=== PATIENT | male | born 1965 | race Caucasian/White ===

== ENCOUNTER 2019-03-07 08:49 | Outpatient (CLI) | payer OTHER, SELFPAY ==
[2019-03-07] VITALS (9 sets, daily range): BP systolic 129–150; BP diastolic 80–94; PULSE 67–77; RESP 16–18; TEMP 36.9; O2SAT 95–97
--- NOTE | 2019-03-07 08:50 | DI.RAD.S_ITS ---
PROCEDURE: PAIN C/T INTERLAMINAR INJECT INDICATIONS: SPONDYLOSIS FINDINGS: Fluoroscopic spot filming was performed to verify placement of spinal needles at the C6-C7 level(s), as labeled on the films. Appropriate location(s) of the needle tip(s) was confirmed by injection of iodinated contrast. Dictated by: Jarrod Cárdenas M.D. on 03/07/2019 at 10:44 Approved by: Jarrod Cárdenas M.D. on 03/07/2019 at 10:45
[2019-03-07] MEDS: MIDAZOLAM 5 MG/5 ML VIAL IV (10:05)
[2019-03-07] MEDS: fentaNYL 100 MCG/2 ML INJ 50 MCG IV (10:06)
[2019-03-07] MEDS: IOPAMIDOL 15 ML VIAL 3 ML INJ (10:13)
[2019-03-07] MEDS: DEXAMETHASONE 10 MG/ML VIAL 20 MG INJ (10:13)
[2019-03-07] MEDS: LIDOCAINE 1% 20 ML INJ 5 ML INJ (10:13)
--- NOTE | 2019-03-07 10:24 | P.PCN_ITS ---
Procedures Date/Time Date of procedure: 03/07/19 Time of procedure: 10:23 General Procedure description: PREOP DIAGNOSIS 1. CERVICAL STENOSIS, 2. CERVICAL HNP WITH UPPER EXTREMITY RADICULAR FEATURES, POST OP DIAGNOSIS 1. CERVICAL STENOSIS, 2. CERVICAL HNP WITH UPPER EXTREMITY RADICULAR FEATURES, PROCEDURES 1. FLUORSCOPICALLY GUIDED CONTRAST CONTROLLED INTERLAMINAR EPIDURAL STEROID INJECTION - C6/7 TL HANNA PHYSICIAN: DO SUZETTE Marmolejo Henry is referred by Dr. Handley for treatment of Cervical HNP with Upper Extremity Paresthesias. FINDINGS Cervical Stenosis due to disc deterioration and nerve root irritation and nerve root irritation DESCRIPTION OF PROCEDURE Fluoroscopically guided, contrast-controlled C6/7 translaminar epidural steroid injection with conscious sedation. Following denial of allergy and review of potential side effects and complications, including, but not necessarily limited to, infection, allergic reaction, local tissue breakdown, temporary as well as permanent nerve injury, stroke, paralysis, and possible , the patient indicated that patient understood and agreed to proceed. An informed consent document was signed by the patient, witnessed by a nurse, and placed in the patient's chart. Additionally, other treatment options including modalities, medications, and physical therapy were reviewed with the patient. After review of previous anaesthesic history and IV conscious sedation the patient was deemed safe to proceed with todays procedure with IV conscious sedation as ASA class II designation. Safety time-out was performed to confirm patient ID, procedure to be performed and site of procedure. IV sedation was accomplished with a combination of 3mg of Versed and 50mcg of Fentanyl administered by the RN after DO order, titrated to patient comfort during the course of the procedure while the patient remained responsive to all verbal commands. In the prone position, following sterile prep and drape of the cervical region, the C6/7 translaminar space was identified fluoroscopically. The skin was anesthetized via a 25-gauge 1.5-inch needle with 1% lidocaine solution. At this point, a 25-gauge, 2.5-inch short bevel spinal needle was atraumatically in troduced and advanced under fluoroscopic guidance into epidural space at the C6/7 translaminar space. Depth was confirmed on lateral view. Radiological data, including multiple fluoroscopic views of the cervical spine, reveal a spinal needle at the C6/7 translaminar space. Lateral views then show placement of the needle in the epidural space. Subsequent views show contrast material flowing superiorly and inferiorly in the epidural space. DSA fluoroscopy with live contrast injection, once again, confirmed no vascular or intrathecal uptake. At this point, using loss of resistance technique with saline and air, the epidural space was entered. Following negative aspiration, injection of approximately 1.5 cc of Isovue-200 with live fluoroscopy in the AP view confirmed epidural flow in the epidural space without vascular or intrathecal uptake observed. Subsequently, a test dose of 1 cc of 1% lidocaine solution was injected and patient was observed for two minutes without signs or symptoms of complications, including abdominal pain, shortness of breath, bilateral upper or lower extremity weakness, nausea and vomiting, prior to steroid injection. At this point, 2cc or 20mg of dexamethasone was then injected without incident. The patient tolerated the procedure well without signs or symptoms of complications prior to being transferred to the recovery area for further monit oring, The patient was then transferred to the recovery area where they were observed for an appropriate period of time after the injection. The patient reported a VAS score of 6 prior to the procedure and a post-procedure VAS of 0. Total Fluoroscopy Time: 37.0 seconds Total Conscious Time: 24min POST OP INSTRUCTIONS The patient was provided a Pain Log to continue to record their response to the target-specific procedure prior to follow-up visit with the referring provider. Additionally, specific post-injection care instructions and a contact number to our office were provided if concerns arise regarding possible complications associated with the procedure are suspected. Stephan Barragan DO Complications: none
[2019-03-07] MEDS: HYDROCODONE/ACET 5/325 TABLET 2 TAB PO (10:43)
--- NOTE | 2019-03-07 10:50 | PC.NURSE ---
pt returned from procedure via wheelchair, awake and alert, able to transfer self with standby assist. Resumed monitoring from Kika SCHILLING.
== END 2019-03-07 11:10 ==
PROVIDERS: PCP Family Medicine; Visit Provider Physical Medicine & Rehabilitation
DX: M48.02 Spinal stenosis, cervical region (principal); M50.123 Cervical disc disorder at C6-C7 level with radiculopathy
CPT/HCPCS: 62321; 99152; J1100; J2250; J3010

== ENCOUNTER → 2019-04-26 08:56 | Outpatient (CLI) | payer OTHER, SELFPAY ==
--- NOTE | 2019-04-26 08:58 | DI.RAD.S_ITS ---
PROCEDURE: XR CERVICAL SPINE 4V OR 5V INDICATIONS: Neck pain TECHNIQUE: 5 views of the cervical spine acquired. COMPARISON: None. FINDINGS: Bones: No fractures or dislocations to the T1 level. Oblique images demonstrate no bony foraminal stenoses. Degenerative disc disease is present moderate in severity at C5-6 and moderately severe at C6-7. Soft tissues: No prevertebral soft tissue swelling. IMPRESSION: Low lumbosacral spine degenerative changes as discussed without subluxation. There is mild foraminal and spinal stenosis symmetric bilaterally and depending on clinical status followup by MR scanning for nerve root impingement or disc old sp/herniation may be warranted. Dictated by: Timmy Vasquez M.D. on 04/26/2019 at 11:03 Approved by: Timmy Vasquez M.D. on 04/26/2019 at 11:04
== END ==
PROVIDERS: PCP Family Medicine; Visit Provider Physical Medicine & Rehabilitation
DX: M54.2 Cervicalgia (principal); M47.22 Other spondylosis with radiculopathy, cervical region
CPT/HCPCS: 72050

== ENCOUNTER → 2019-07-28 06:58 | Outpatient (CLI) | payer OTHER, SELFPAY ==
[2019-07-28 08:19] LABS: Blood Urea Nitrogen 26 mg/dL (9-20); Calcium 9.6 mg/dL (8.4-10.2); Carbon Dioxide 30 mmol/L (22-32); Chloride 102 mmol/L (98-107); Estimated Glomerular Filt Rate > 60.0 mL/min (>60); Glucose 119 mg/dL (70-100); HEMOLYSIS < 15 (0-50); Potassium 4.9 mmol/L (3.4-5.1); Sodium 140 mmol/L (137-145)
== END ==
PROVIDERS: Family Provider Family Medicine; PCP Family Medicine; Visit Provider Nurse Practitioner Family
DX: I48.0 Paroxysmal atrial fibrillation (principal); I10 Essential (primary) hypertension
CPT/HCPCS: 36415; 80048

== ENCOUNTER → 2019-08-01 07:58 | Outpatient (CLI) | payer OTHER, SELFPAY ==
[2019-08-01 08:48] LABS: Add Manual Diff / Slide Review NO; Basophils Absolute Auto 0 /uL (0-100); Basophils Percent Auto 0.7 % (0-2); Eosinophils Absolute Auto 100 /uL (0-450); Eosinophils Percent Auto 1.7 % (2-4); Hematocrit 41.6 % (41-53); Hemoglobin 13.9 g/dL (13.5-17.5); Lymphocytes Absolute Auto 2200 /uL (1100-4500); Lymphocytes Percent Auto 33.5 % (25-40); Mean Corpuscular HGB Conc 33.5 % (30-36); Mean Corpuscular Hemoglobin 28.9 PG (26-34); Mean Corpuscular Volume 86.3 fL (80-100); Monocytes Absolute Auto 500 /uL (0-900); Monocytes Percent Auto 6.9 % (3-14); Neutrophils Absolute Auto 3700 /uL (1500-7000); Neutrophils Percent Auto 57.2 % (50-75); Platelet Count 288 X10^3/uL (150-400); Red Blood Cell Count 4.82 X10^6/uL (4.5-5.9); White Blood Cell Count 6.5 X10^3/uL (4.5-11.0)
[2019-08-01 09:16] LABS: Cholesterol 184 mg/dL (140-199); HDL Cholesterol 43 mg/dL (40-60); LDL Cholesterol Calculated 91 mg/dL (<100); Triglycerides 248 mg/dL (35-150)
[2019-08-01 09:51] LABS: Thyroid Stimulating Hormone 1.55 uIU/mL (0.47-4.68)
== END ==
PROVIDERS: PCP Family Medicine; Visit Provider Family Medicine
DX: F32.9 Major depressive disorder, single episode, unspecified (principal); G47.30 Sleep apnea, unspecified; I35.9 Nonrheumatic aortic valve disorder, unspecified; I48.91 Unspecified atrial fibrillation; R41.3 Other amnesia; R60.9 Edema, unspecified
CPT/HCPCS: 36415; 80061; 84443; 85025

== ENCOUNTER 2019-10-24 07:00 | Outpatient (CLI) | payer OTHER, SELFPAY ==
[2019-10-24] VITALS (10 sets, daily range): BP systolic 115–151; BP diastolic 55–97; PULSE 68–77; RESP 16–18; TEMP 37.1; O2SAT 94–97
--- NOTE | 2019-10-24 07:03 | DI.RAD.S_ITS ---
PROCEDURE: PAIN C/T INTERLAMINAR INJECT INDICATIONS: SPINAL STENOSIS FINDINGS: Fluoroscopic spot filming was performed to verify placement of spinal needles at the C6-C7 level(s), as labeled on the films. Appropriate location(s) of the needle tip(s) was confirmed by injection of iodinated contrast. IMPRESSION: Fluoroscopy for pain management. Dictated by: Jerad Corrigan M.D. on 10/24/2019 at 9:35 Approved by: Jerad Corrigan M.D. on 10/24/2019 at 9:36
[2019-10-24] MEDS: MIDAZOLAM 5 MG/5 ML VIAL IV (08:13)
[2019-10-24] MEDS: fentaNYL 100 MCG/2 ML INJ 50 MCG IV (08:13)
[2019-10-24] MEDS: LIDOCAINE 1% 20 ML 5 ML INJ (08:20)
[2019-10-24] MEDS: DEXAMETHASONE 10 MG/ML VIAL 30 MG INJ (08:20)
[2019-10-24] MEDS: IOPAMIDOL 15 ML VIAL 3 ML INJ (08:20)
--- NOTE | 2019-10-24 08:25 | PC.NURSE ---
ASSISTING PT OFF TABLE AND TRANSPORTING TO POST PROC AREA IN STABLE CONDITION. PASSING RN CARE OF PT OFF TO MATTHEW Garcia RN.
--- NOTE | 2019-10-24 08:30 | PM.PROC.1 ---
Procedures Date/Time Date of procedure: 10/24/19 Time of procedure: 08:30 General Procedure description: PREOP DIAGNOSIS 1. CERVICAL STENOSIS, 2. CERVICAL HNP WITH UPPER EXTREMITY RADICULAR FEATURES, POST OP DIAGNOSIS 1. CERVICAL STENOSIS, 2. CERVICAL HNP WITH UPPER EXTREMITY RADICULAR FEATURES, PROCEDURES 1. FLUORSCOPICALLY GUIDED CONTRAST CONTROLLED INTERLAMINAR EPIDURAL STEROID INJECTION - C6/7 TL HANNA PHYSICIAN: Stephan Barragan, DO INDICATIONS Henry is referred for treatment of Cervical HNP with R>L Upper Extremity Paresthesias. FINDINGS Cervical Stenosis due to disc deterioration and nerve root irritation and nerve root irritation DESCRIPTION OF PROCEDURE Fluoroscopically guided, contrast-controlled C6/7 translaminar epidural steroid injection with conscious sedation. Following review of allergy and review of potential side effects and complications, including, but not necessarily limited to, infection, allergic reaction, local tissue breakdown, temporary as well as permanent nerve injury, stroke, paralysis, and possible , the patient indicated that patient understood and agreed to proceed. An informed consent document was signed by the patient, witnessed by a nurse, and placed in the patient's chart. Additionally, other treatment options including modalities, medications, and physical therapy were reviewed with the patient. After review of previous anaesthesic history and IV conscious sedation the patient was deemed safe to proceed with todays procedure with IV conscious sedation as ASA class II designation. Safety time-out was performed to confirm patient ID, procedure to be performed and site of procedure. IV sedation was accomplished with a combination of 5mg of Versed and 50mcg of Fentanyl administered by the RN after DO order, titrated to patient comfort during the course of the procedure while the patient remained responsive to all verbal commands. In the prone position, following sterile prep and drape of the cervical region, the C6/7 translaminar space was identified fluoroscopically. The skin was anesthetized via a 25-gauge 1.5-inch needle with 1% lidocaine solution. At this point, a 25-gauge, 2.5-inch short bevel spinal needle was atraumatically introduced and advanced under fluoroscopic guidance into epidural space at the C6/7 translaminar space. Depth was confirmed on lateral view. Radiological data, including multiple fluoroscopic views of the cervical spine, reveal a spinal needle at the C6/7 translaminar space. Lateral views then show placement of the needle in the epidural space. Subsequent views show contrast material flowing superiorly and inferiorly in the epidural space. DSA fluoroscopy with live contrast injection, once again, confirmed no vascular or intrathecal uptake. At this point, using loss of resistance technique with saline and air, the epidural space was entered. Following negative aspiration, injection of approximately 1.5 cc of Isovue-200 with live fluoroscopy in the AP view confirmed epidural flow in the epidural space without vascular or intrathecal uptake observed. Subsequently, a test dose of 1 cc of 1% lidocaine solution was injected and patient was observed for two minutes without signs or symptoms of complications, including abdominal pain, shortness of breath, bilateral upper or lower extremity weakness, nausea and vomiting, prior to steroid injection. At this point, 3cc or 30mg of dexamethasone was then injected without incident. The patient tolerated the procedure well without signs or symptoms of complications prior to being transferred to the recovery area for further monitoring, The patient was then transferred to the recovery area where they were observed for an appropriate period of time after the injection. The patient reported a VAS score of 6 prior to the procedure and a post-procedure VAS of 0. Total Fluoroscopy Time: 37.0 seconds Total Conscious Time: 24min POST OP INSTRUCTIONS The patient was provided a Pain Log to continue to record their response to the target-specific procedure prior to follow-up visit with the referring provider. Additionally, specific post-injection care instructions and a contact number to our office were provided if concerns arise regarding possible complications associated with the procedure are suspected. Stephan Barragan DO Complications: none
--- NOTE | 2019-10-24 11:22 | PC.NURSE ---
Post [place] arrival note: [place] [id number]. VSS on arrival at 0935. Patient awake and with mild drowsiness. Able to transfer from wheelchair to recliner independently. Pain level 6/10 on arrival. Ache in neck radiating to bilateral shoulders. Denied any unusual numbness or tingling to upper extremities. Discharged to home w/c to car with spouse at 0905. Pain level 7/10
== END 2019-10-24 09:05 | disposition home or self-care (01) ==
LOC: RAD 07:01
PROVIDERS: PCP Family Medicine; Visit Provider Physical Medicine & Rehabilitation
DX: M48.02 Spinal stenosis, cervical region (principal); M50.123 Cervical disc disorder at C6-C7 level with radiculopathy
CPT/HCPCS: 62321; 99152; J1100; J2250; J3010

== ENCOUNTER → 2020-06-25 08:16 | Outpatient (CLI) | payer OTHER, SELFPAY ==
[2020-06-25 09:44] LABS: BUN Creatinine Ratio 25.6 (6-22); Blood Urea Nitrogen 23 mg/dL (9-20); Calcium 9.1 mg/dL (8.4-10.2); Carbon Dioxide 22 mmol/L (22-32); Chloride 105 mmol/L (98-107); Estimated Glomerular Filt Rate > 60.0 mL/min (>60); Glucose 164 mg/dL (70-100); HEMOLYSIS < 15 (0-50); Potassium 4.9 mmol/L (3.4-5.1); Sodium 136 mmol/L (137-145)
== END ==
PROVIDERS: PCP Family Medicine; Referring Provider Student in an Organized Health Care Education/Training Program; Visit Provider Student in an Organized Health Care Education/Training Program
DX: I48.91 Unspecified atrial fibrillation (principal)
CPT/HCPCS: 36415; 80048

== ENCOUNTER → 2020-07-30 11:32 | Outpatient (CLI) | payer OTHER, SELFPAY ==
--- NOTE | 2020-07-30 11:35 | DI.RAD.S_ITS ---
PROCEDURE: XR CERVICAL SPINE 4V OR 5V INDICATIONS: PAIN TREATMENT TECHNIQUE: 5 views of the cervical spine acquired. COMPARISON: [facility], CR, XR CERVICAL SPINE 4V OR 5V, 04/26/2019, 9:05. FINDINGS: Bones: No fractures or dislocations to the C7-T1 level. Oblique images demonstrate no bony foraminal stenoses. There is moderate disc space narrowing at C5-6 and C6-7. Anterior osteophyte is present at C6. There is moderate to severe foraminal narrowing at the right C5-6 and C6-7, moderate to severe at these levels on the left. Multilevel uncovertebral arthropathy is present. Soft tissues: No prevertebral soft tissue swelling. IMPRESSION: Degenerative changes most notable at C5-6 and C6-7 as above. Dictated by: Samaria Kulkarni M.D. on 07/30/2020 at 15:28 Approved by: Samaria Kulkarni M.D. on 07/30/2020 at 15:29
--- NOTE | 2020-07-30 11:35 | DI.RAD.S_ITS ---
PROCEDURE: XR HAND LT MIN 3V INDICATIONS: FOOSH injury, tender to distal radius, r/o fx TECHNIQUE: 3 views of the hand(s) acquired. COMPARISON: [facility], , WRIST MINIMUM 3 VIEWS LEFT, 11/29/2007, 15:07. [facility], , HAND 3V RIGHT, 05/31/2011, 13:25. FINDINGS: Bones: No acute fractures or dislocations. Carpal bones are normally aligned. No suspicious bony lesions. Soft tissues: Mild left hand soft tissue swelling. No suspicious soft tissue calcifications. IMPRESSION: Mild soft tissue swelling of the left hand without underlying fracture or dislocation. If there is persistent clinical concern for occult fracture given adequate mechanism of injury, consider repeat imaging in 10-14 days. Dictated by: Matteo Casarez M.D. on 07/30/2020 at 12:30 Approved by: Matteo Casarez M.D. on 07/30/2020 at 12:33
--- NOTE | 2020-07-30 11:35 | DI.RAD.S_ITS ---
PROCEDURE: XR WRIST LT MIN 3V INDICATIONS: FOOSH injury, tender to distal radius, r/o fx TECHNIQUE: 4 views of the wrist were acquired. COMPARISON: [facility], , WRIST MINIMUM 3 VIEWS LEFT, 11/29/2007, 15:07. FINDINGS: Bones: No fractures or dislocations. No suspicious bony lesions. Scaphoid view: Scaphoid appears intact. Scapholunate interval is stable, measuring at the upper limits of normal. Soft tissues: No suspicious soft tissue calcifications. IMPRESSION: Left wrist without acute fracture or dislocation. If there is persistent clinical concern for occult fracture given adequate mechanism of injury, consider repeat imaging in 10-14 days. Dictated by: Matteo Casarez M.D. on 07/30/2020 at 12:28 Approved by: Matteo Casarez M.D. on 07/30/2020 at 12:30
== END ==
PROVIDERS: PCP Family Medicine; Referring Provider Physician Assistant; Visit Provider Physician Assistant
DX: S69.92XA Unspecified injury of left wrist, hand and finger(s), initial encounter (principal); M79.89 Other specified soft tissue disorders; M47.22 Other spondylosis with radiculopathy, cervical region; M48.02 Spinal stenosis, cervical region; M50.20 Other cervical disc displacement, unspecified cervical region; W19.XXXA Unspecified fall, initial encounter
CPT/HCPCS: 72050; 73110; 73130

== ENCOUNTER → 2020-08-17 08:33 | Outpatient (CLI) | payer OTHER, SELFPAY ==
[2020-08-19 02:07] LABS: COVID19 Sendout Not Detected (Not Detect)
== END ==
PROVIDERS: PCP Family Medicine; Visit Provider Student in an Organized Health Care Education/Training Program
DX: Z11.59 Encounter for screening for other viral diseases (principal)
CPT/HCPCS: 87635

== ENCOUNTER 2020-08-20 07:25 | Outpatient (CLI) | payer OTHER, SELFPAY ==
--- NOTE | 2020-08-20 08:03 | DI.RAD.S_ITS ---
PROCEDURE: PAIN C/T INTERLAMINAR INJECT INDICATIONS: SPINAL STENOSIS COMPARISON: [facility], XA, PAIN C/T INTERLAMINAR INJECT, 10/24/2019, 8:14. [facility], XA, PAIN C/T INTERLAMINAR INJECT, 03/07/2019, 10:11. FINDINGS: Fluoroscopic spot filming was performed to verify placement of spinal needles at the C6-7 level(s), as labeled on the films. Appropriate location(s) of the needle tip(s) was confirmed by injection of iodinated contrast. IMPRESSION: Successful needle tip localization at the dorsal paramedian C6-7 level for translaminar epidural steroid injection. Dictated by: Timmy Vasquez M.D. on 08/20/2020 at 11:04 Approved by: Timmy Vasquez M.D. on 08/20/2020 at 11:04
[2020-08-20 08:22] VITALS: BP 142/87; PULSE 62; RESP 18; O2SAT 96
[2020-08-20 08:33] VITALS: BP 158/87; PULSE 59; RESP 18; O2SAT 96
[2020-08-20] MEDS: MIDAZOLAM 5 MG/5 ML VIAL IV (08:34)
[2020-08-20] MEDS: fentaNYL 100 MCG/2 ML INJ 50 MCG IV (08:34)
[2020-08-20 08:35] VITALS: BP 160/92; PULSE 63; RESP 18; O2SAT 398
[2020-08-20 08:40] VITALS: BP 144/88; PULSE 62; RESP 18; O2SAT 97
[2020-08-20] MEDS: BUPIVACAINE 0.25% (PF) VIAL 2 ML INJ (08:40)
[2020-08-20] MEDS: IOPAMIDOL 15 ML VIAL 3 ML INJ (08:40)
[2020-08-20] MEDS: DEXAMETHASONE 10 MG/ML VIAL 30 MG INJ (08:40)
[2020-08-20 08:45] VITALS: BP 149/93; PULSE 60; RESP 18; O2SAT 96
--- NOTE | 2020-08-20 08:50 | P.PCN_ITS ---
Date/Time/Diagnoses Date of procedure: 08/20/20 Time of procedure: 08:50 Pre-procedure diagnosis: 1. CERVICAL STENOSIS, 2. CERVICAL HNP WITH UPPER EXTREMITY RADICULAR FEATURES Post-procedure diagnosis: same Procedure Notes Procedure: 1. FLUORSCOPICALLY GUIDED CONTRAST CONTROLLED INTERLAMINAR EPIDURAL STEROID INJECTION - C6/7 TL HANNA Indications: Henry is referred by Dr. Handley for treatment of Cervical HNP with Upper Extremity Paresthesias. Physician: Stephan Barragan Total Fluoroscopy time (seconds): 29 Total sedation minutes: 11 Complications: none Procedure in detail & Post-procedure care: FINDINGS Cervical Stenosis due to disc deterioration and nerve root irritation and nerve root irritation DESCRIPTION OF PROCEDURE Fluoroscopically guided, contrast-controlled C6/7 translaminar epidural steroid injection with conscious sedation. Following review of allergy and review of potential side effects and complications, including, but not necessarily limited to, infection, allergic reaction, local tissue breakdown, temporary as well as permanent nerve injury, stroke, paralysis, and possible , the patient indicated that patient understood and agreed to proceed. An informed consent document was signed by the patient, witnessed by a nurse, and placed in the patient's chart. Additionally, other treatment options including modalities, medications, and physical therapy were reviewed with the patient. After review of previous anaesthesic history and IV conscious sedation the patient was deemed safe to proceed with today?s procedure with IV conscious sedation as ASA class II designation. Safety time-out was performed to confirm patient ID, procedure to be performed and site of procedure. IV sedation was accomplished with a combination of 2mg of Versed and 50mcg of Fentanyl administered by the RN after DO order, titrated to patient comfort during the course of the procedure while the patient remained responsive to all verbal commands. In the prone position, following sterile prep and drape of the cervical region, the C6/7 translaminar space was identified fluoroscopically. The skin was anesthetized via a 25-gauge 1.5-inch needle with 1% lidocaine solution. At this point, a 25-gauge, 2.5-inch short bevel spinal needle was atraumatically introduced and advanced under fluoroscopic guidance into epidural space at the C6/7 translaminar space. Depth was confirmed on lateral view. Radiological data, including multiple fluoroscopic views of the cervical spine, reveal a spinal needle at the C6/7 translaminar space. Lateral views then show placement of the needle in the epidural space. Subsequent views show contrast material flowing superiorly and inferiorly in the epidural space. DSA fluoroscopy with live contrast injection, once again, confirmed no vascular or intrathecal uptake. At this point, using loss of resistance technique with saline and air, the epidural space was entered. Following negative aspiration, injection of wayne roximately 1.5 cc of Isovue-200 with live fluoroscopy in the AP view confirmed epidural flow in the epidural space without vascular or intrathecal uptake observed. Subsequently, a test dose of 1cc of 0.25% marcaine solution was injected and patient was observed for two minutes without signs or symptoms of complications, including abdominal pain, shortness of breath, bilateral upper or lower extremity weakness, nausea and vomiting, prior to steroid injection. At this point, 2cc or 20mg of dexamethasone was then injected without incident. The patient tolerated the procedure well without signs or symptoms of complications prior to being transferred to the recovery area for further monitoring, The patient was then transferred to the recovery area where they were observed for an appropriate period of time after the injection. The patient reported a VAS score of 6 prior to the procedure and a post-procedure VAS of 0. POST OP INSTRUCTIONS The patient was provided a Pain Log to continue to record their response to the target-specific procedure prior to follow-up visit with the referring provider. Additionally, specific post-injection care instructions and a contact number to our office were provided if concerns arise regarding possible complications associated with the procedure are suspected.
[2020-08-20 09:00] VITALS: BP 139/69; PULSE 61; RESP 17; O2SAT 98
== END 2020-08-20 09:20 | disposition home or self-care (01) ==
LOC: RAD 07:26
PROVIDERS: PCP Family Medicine; Referring Provider Family Medicine; Visit Provider Physical Medicine & Rehabilitation
DX: M48.02 Spinal stenosis, cervical region (principal); M50.123 Cervical disc disorder at C6-C7 level with radiculopathy; R20.2 Paresthesia of skin
CPT/HCPCS: 62321; 99152; J1100; J2250; J3010

== ENCOUNTER → 2020-10-02 18:36 | Outpatient (CLI) | payer OTHER, SELFPAY ==
--- NOTE | 2020-10-02 18:38 | DI.MRI.S_ITS ---
PROCEDURE: MR CERVICAL SPINE WO CON INDICATIONS: OTHER SPONDYLIOSIS WITH MYLEPATHY CERVICAL REGION TECHNIQUE: Noncontrast sagittal T1 spin echo and T2 fast spin echo, sagittal STIR, foraminal oblique sagittal T2 fast spin echo, and axial gradient echo or T2 fast spin echo through the cervical spine. COMPARISON: [facility], , MR CERVICAL SPINE WO CON, 05/14/2017, 12:27. FINDINGS: Image quality: Excellent. Alignment and Curvature: Straightening of the normal lordotic curvature. Grade 1 anterolisthesis of C4 on C5. Bone Marrow: No fracture. Multilevel degenerative endplate sclerosis and spurring. Diffuse facet arthropathy. Spinal Cord: Visualized spinal cord has normal size and signal. No cerebellar tonsillar herniation. Paraspinous Soft Tissues: No paravertebral masses. Prevertebral soft tissues are normal in thickness. C2-C3: Mild canal narrowing. Moderate left foraminal stenosis with slight nerve root compression. No right foraminal narrowing. Overall, no interval change C3-C4: Minimal canal narrowing. Moderate left foraminal stenosis with nerve root compression. This appears progressed since the prior study. Mild right foraminal stenosis. C4-C5: Mild canal narrowing. Severe right foraminal stenosis with nerve root compression. Mild left foraminal stenosis. No interval change. C5-C6: Mild canal narrowing. Mild bilateral foraminal stenosis. No interval change C6-C7: Mild canal narrowing. Mild bilateral foraminal stenoses. No interval change C7-T1: No canal stenosis. No foraminal stenosis. IMPRESSION: Grade 1 anterolisthesis of C4 on C5 and straightening of the normal lordotic curvature Severe right C4-C5 foraminal stenosis. This appears unchanged Moderate left C2-C3, and C3-C4 foraminal stenosis. Additional lesser foraminal stenosis as detailed above by spinal level. Dictated by: Jarrod Cárdenas M.D. on 10/03/2020 at 8:19 Approved by: Jarrod Cárdenas M.D. on 10/03/2020 at 8:26
== END ==
PROVIDERS: PCP Family Medicine; Referring Provider Orthopaedic Surgery; Visit Provider Orthopaedic Surgery
DX: M47.12 Other spondylosis with myelopathy, cervical region (principal); M43.12 Spondylolisthesis, cervical region; M48.02 Spinal stenosis, cervical region
CPT/HCPCS: 72141

== ENCOUNTER → 2020-10-04 09:47 | Outpatient (CLI) | payer OTHER, SELFPAY ==
[2020-10-04 10:36] LABS: Add Manual Diff / Slide Review NO; Basophils Absolute Auto 100 /uL (0-100); Basophils Percent Auto 0.9 % (0-2); Eosinophils Absolute Auto 100 /uL (0-450); Hemoglobin 13.1 g/dL (13.5-17.5); Lymphocytes Absolute Auto 2500 /uL (1100-4500); Lymphocytes Percent Auto 37.8 % (25-40); Mean Corpuscular HGB Conc 33.5 % (30-36); Mean Corpuscular Hemoglobin 28.4 PG (26-34); Mean Corpuscular Volume 84.6 fL (80-100); Monocytes Absolute Auto 700 /uL (0-900); Monocytes Percent Auto 10.3 % (3-14); Neutrophils Absolute Auto 3200 /uL (1500-7000); Platelet Count 265 X10^3/uL (150-400); Red Blood Cell Count 4.61 X10^6/uL (4.5-5.9); Red Cell Distribution Width 14.2 % (11.6-14.8); White Blood Cell Count 6.5 X10^3/uL (4.5-11.0)
[2020-10-04 10:49] LABS: Hemoglobin A1C% w Est Avg Glu 6.8 % (4.0-6.0)
[2020-10-04 11:00] LABS: BUN Creatinine Ratio 26.7 (6-22); Blood Urea Nitrogen 24 mg/dL (9-20); Calcium 9.2 mg/dL (8.4-10.2); Carbon Dioxide 29 mmol/L (22-32); Chloride 103 mmol/L (98-107); Estimated Glomerular Filt Rate > 60.0 mL/min (>60); Glucose 121 mg/dL (70-100); HEMOLYSIS < 15 (0-50); Potassium 4.4 mmol/L (3.4-5.1); Sodium 137 mmol/L (137-145)
[2020-10-04 11:30] LABS: Prostate Specific Antigen Scrn 0.463 ng/mL (0.1-4.0)
== END ==
PROVIDERS: PCP Family Medicine; Referring Provider Orthopaedic Surgery; Visit Provider Orthopaedic Surgery
DX: Z01.812 Encounter for preprocedural laboratory examination (principal); E78.2 Mixed hyperlipidemia; Z12.5 Encounter for screening for malignant neoplasm of prostate
CPT/HCPCS: 36415; 80048; 83036; 85025; G0103

== ENCOUNTER → 2020-10-21 09:03 | Outpatient (CLI) | payer OTHER, SELFPAY ==
[2020-10-21 10:10] LABS: BUN Creatinine Ratio 16.5 (6-22); Blood Urea Nitrogen 16 mg/dL (9-20); Calcium 9.2 mg/dL (8.4-10.2); Carbon Dioxide 29 mmol/L (22-32); Chloride 102 mmol/L (98-107); Estimated Glomerular Filt Rate > 60.0 mL/min (>60); Glucose 146 mg/dL (70-100); HEMOLYSIS < 15 (0-50); Potassium 4.6 mmol/L (3.4-5.1); Sodium 137 mmol/L (137-145)
== END ==
PROVIDERS: PCP Internal Medicine; Referring Provider Internal Medicine; Visit Provider Student in an Organized Health Care Education/Training Program
DX: I48.91 Unspecified atrial fibrillation (principal)
CPT/HCPCS: 36415; 80048

== ENCOUNTER → 2020-10-23 09:13 | Outpatient (CLI) | payer OTHER, SELFPAY ==
[2020-10-23 10:51] LABS: COVID19 -Nasal RAPID Negative (Negative)
== END ==
PROVIDERS: PCP Internal Medicine; Visit Provider Nurse Practitioner
DX: Z20.828 Contact with and (suspected) exposure to other viral communicable diseases (principal)
CPT/HCPCS: 87635

== ENCOUNTER 2020-10-24 08:54 | Day surgery (SDC) | payer OTHER, SELFPAY ==
[2020-10-23 13:26] VITALS: BMI 40.1
[2020-10-24] VITALS (17 sets, daily range): BP systolic 116–157; BP diastolic 63–85; PULSE 68–84; RESP 8–18; TEMP 35.9–36.9; O2SAT 76–99; BMI 39.6
--- NOTE | 2020-10-24 | DI.RAD.S_ITS ---
PROCEDURE: XR CERVICAL SPINE 2V OR 3V INDICATIONS: C56-C67 ANTERIOR DISCECTOMY W/ BONE GRAFT. TECHNIQUE: 1 intraoperative fluoroscopic view(s) of the cervical spine were acquired. COMPARISON: [facility], , XR CERVICAL SPINE 4V OR 5V, 07/30/2020, 11:25. FINDINGS: Intraoperative fluoroscopic image of cervical spine shows anterior fusion at C5-6 level. IMPRESSION: Fluoro guidance was provided intraoperatively for anterior fusion of lower cervical spine as above. Dictated by: Estevan Pedraza M.D. on 10/24/2020 at 11:54 Approved by: Estevan Pedraza M.D. on 10/24/2020 at 11:57
[2020-10-24] MEDS: ACETAMINOPHEN 325 MG TABLET 975 MG PO (09:13)
[2020-10-24] MEDS: LACTATED RINGERS 1,000 ML 42 ML IV ×2 (09:15→11:21)
--- NOTE | 2020-10-24 09:23 | PM.PREOP ---
Pre-operative Note COVID-19 COVID-19 status: Negative Result date/Date tested (Pos, Neg/Pending): 10/23/20 Interval Note History & Physical reviewed/Exam performed by Physician: Yes Changes to H&P: No
--- NOTE | 2020-10-24 09:56 | PM.OP.1 ---
Operative Date/Time/Diagnoses Date of procedure: 10/24/20 Time of procedure: 12:01 Pre-op diagnosis: Cervical stenosis with myelopathy Post-op diagnosis: same Procedure & Clinicians Procedure: C5-6 C6-7 ACDF with cages Iliac crest bone graft aspirate Use of microscope Same procedure as scheduled: Yes Indications: [age] year old male with progressive myelopathy from cervical stenosis. They had failed conservative management and requested operative intervention. Risks and benefits of surgery were discussed and appropriate consents were obtained. Surgeon: Jesse Ray Health Associate: Jessica Garner Anesthesia Type: General Operative Notes Findings: None Closure Type: primary Specimen(s): none sent Prosthetic devices, grafts, tissues, transplants, or devices: Jordana HUSSEIN-C Estimated Blood Loss (mL): 5 Procedure in detail: Patient was brought to the operating room and intubated on the table. A time-out was performed. Preoperative antibiotics were given. The neck was prepped and draped in the standard sterile fashion. Using a skin fold, we made a 3 cm oblique incision on the left side. We used Bovie to go through the platysma and then did a standard anterolateral blunt dissection down to the precervical fascia. Fascia was nicked and elevated up. A marker was placed and x-ray was taken for localization. We then subperiosteally elevated up the longus colli muscles. Self-retaining retractors were placed. [place] pins were placed. We then brought in the microscope. A scalpel used to perform an annulotomy. We then used a combination of pituitaries and curettes and Kerrison to perform a complete anterior diskectomy at C6-7. We used the bur to decorticate the endplates and take down the posterior osteophytes. We took down the PLL and used Kerrison to remove any posterior disc material and osteophytes. At the end we could from the nerve hook cephalad caudally and out the foramen and everything was opened. A small stab incision was made over the left anterior iliac crest. A Jamshidi needle was advanced into the pelvis and 2 mL of bone marrow was aspirated. We then used the trials. We then packed a 14 x 17 x 7 mm HUSSEIN-C cage with Primagen bone graft and the iliac crest harvest. The cage was placed under fluoroscopic guidance. We then placed our two locking plates. We then moved our retractors up to the C5-6 level. A complete diskectomy was performed. We used the bur to decorticate the endplates as well as take down the posterior osteophytes. We then removed the PLL. We removed any remaining disc material and osteophytes until we could easily move the nerve hook without resistance. We trialed and placed another 14 x 17 x 7 mm HUSSEIN-C cage with bone graft for the ACDF at C5-6. The plates were placed. The self-retaining retractors and [place] pins were removed and final x-rays taken. The wound was irrigated. There was no bleeding. The carotid was beating nicely. The platysma was closed. The superficial was closed. The skin was closed. A sterile dressing was placed. They were then extubated and brought to recovery room with no complications. Complications: none Post-operative Condition: stable Disposition: PACU Plan for aftercare: Inpatient overnight stay in the hospital. Soft collar for comfort.
[2020-10-24] MEDS: CLINDAMYCIN 900 MG/50 ML PIGGYBACK 50 MG IV ×2 (10:15→17:29)
--- NOTE | 2020-10-24 10:40 | SUR.OPER ---
Supine on padded OR bed, head on gel donut, arm padded and tucked at side, legs uncrossed, safety belt at thigh, tape over blanket over lower legs . large gel pad under lower legs
[2020-10-24] MEDS: SODIUM CHLORIDE 0.9% 1,000 ML, GENTAMICIN 80 MG IRR (10:55)
[2020-10-24] MEDS: BUPIVACAINE 0.25% W/ EPI 30 ML VIAL 60 ML INJ (10:55)
[2020-10-24] MEDS: THROMBIN (RECOMBINANT) 5,000 UNIT VIAL 5000 UNIT TOP (10:55)
[2020-10-24] MEDS: HYDROMORPHONE 2 MG INJ IV (12:07)
[2020-10-24] MEDS: OXYCODONE IR 5 MG TABLET PO (12:39)
[2020-10-24] MEDS: LACTATED RINGERS 1,000 ML 125 ML IV (13:33)
[2020-10-24] MEDS: hydrOXYzine pamoate 25 MG CAPSULE PO (13:33)
[2020-10-24] MEDS: HYDROCODONE/ACET 5/325 TABLET 2 TAB PO (13:42)
--- NOTE | 2020-10-24 16:46 | PT.IIE ---
Current Diagnoses Spinal stenosis, cervical region (10/24/20) Strain of muscle, fascia and tendon at neck level, subsequent encounter (10/24/20) Surgery Performed Operation Date: 10/24/20 10:15 Actual Procedures p C56 & C67 anterior cervical discectomy & fusion - Jesse Ray MD Surgical History (Last Updated 10/16/20 @ 10:13 by Sadie Benites, RN) History of vasectomy Hx of appendectomy S/P epidural steroid injection Medical History (Last Updated 10/16/20 @ 10:44 by Sadie Benites RN) Acid reflux Arthritis BCC (basal cell carcinoma), chest Elevated hemoglobin A1c Fall Foraminal stenosis of cervical region History of cardioversion (~2015) HLD (hyperlipidemia) HTN (hypertension) Left wrist injury Physical Therapy Inpatient Evaluation/Re-Eval M1 PT/OT-IP Prior Functional Status Start: 10/24/20 15:29 Freq: NEEDED Status: Active Protocol: Document 10/24/20 16:11 AW (Rec: 10/24/20 15:29 AW [id number]) Medical Review Prior Functional Status Medical History Reviewed Yes Communication WNL. Pt is an effective verbal communicator. Mobility and Gait Pt is independent with all mobilities at baseline. Activities of Daily Living and IADL's Independent with all I/ADL's and driving. Social History Household Members spouse,children Living Arrangements House Number of Floors (Floors) Two Floors Number of Stairs To Enter/Railing? 2 BAIRON without railing. Kitchen , living room, and office are on main level. Pt climbs 15 steps with right railing to bedroom level. Home Environment Standard Height Toilet,Walk in Shower Home Equipment Straight Cane,Crutches Employment Status [employer] Employed Additional Social History Comment Pt lives with his , Nicolasa (an RN) and two teenaged children. Pt will have assist at home. M2 PT-IP Current Condition Start: 10/24/20 15:29 Freq: NEEDED Status: Active Protocol: Document 10/24/20 16:11 AW (Rec: 10/24/20 16:46 AW [id number]) Physical Therapy Current Condition Current Condition Evaluation Date 10/24/20 Treatment Diagnosis s/p C5-7 ACDF; neck pain affecting mobility Precautions Cervical Spine Precautions Soft Collar for Comfort,No Heavy Lifting,Log Roll M3 PT-IP Subjective Start: 10/24/20 15:29 Freq: NEEDED Status: Active Protocol: Document 10/24/20 16:11 AW (Rec: 10/24/20 16:46 AW [id number]) Subjective Physical Therapy Visit Type Type Initial Evaluation Visit Start Time 15:42 Visit Stop Time 16:11 Total Visit Minutes 29 Notes Pt's , Nicolasa, present throughout evaluation. Physical Therapy Visit Comments Patient Comments I have restless legs and I'd really like to get up. Patient Goals Pt hopes to return home [facility] Therapy Pain Assessment Pain When Pain Assessed During Mobility Pain Present Pain Present Pain Reported Location neck Intensity 4 Scale Used Numeric (0 - 10) Pain Management Techniques Distraction,Timing of Activity with Medications M4 PT-IP Mobility and Gait Start: 10/24/20 15:29 Freq: NEEDED Status: Active Protocol: Document 10/24/20 16:11 AW (Rec: 10/24/20 16:46 AW [id number]) PT-Bed Mobility Assessment Rolling Type of Rolling Log Rolling,Roll to Right Level of Assist Standby Assistance Supine to Sit Supine to Sit Standby Assistance Scooting Scooting to Edge of Bed Standby Assistance PT-Transfer Assessment Sit to and From Stand Sit to and from Stand Standby Assistance Equipment Transfer Assistive Device Gait Belt Orthotic/Prosthetic Devices or Brace: No Transfers Transfer Destination Chair Transfer Technique Stand Step Pivot Transfer Ability Level of Assist Standby Assistance Comments Mobility Comments Pt was lying in bed as PT arrived. BP was 146/72 HR 82. Pt completed all mobility SBA with good attention to safe cervical ROM. He rolled to his right and sat up on the EOB. He then stood and ambulated to the toilet where he stood to use the urinal. His assisted with donning underwear in standing. Pt then ambulated to the sink and stood to wash his hands. PT provided education on soft collar fitting with mirror for visual feedback. Pt agreed to ambulate in the gale, walking a total of 230 feet SBA before returning to the room and transferring to the chair. Pt was left with his in the room. Gait Assessment Gait Gait Assistance Required: Standby Assistance Distance (Feet) 230 Able to Maintain Weight Bearing Status Yes During Gait Assistive Devices Assistive Device Gait Belt Orthotic/Prosthetic Devices or Brace: No Gait Deviations General Gait Pattern Antalgic,Decreased Feet Clearance,Wide Based Gait Factors Limiting Gait Function Factors Limiting Gait Function Decreased Activity Tolerance Comments Gait Comments After receiving assist to don his shoes, pt ambulated safely in the halls with good awareness of safe cervical ROM . Stair Climbing Assessment Evaluation Level of Assist On Stairs Standby Assistance Devices Stair Climbing Assistive Devices Right Railing Technique/Endurance Stair Climbing Direction Ascend and Descend Stair Climbing Technique Step Over Step Number of Steps Climbed 3 Query Text: Stair Climbing Set # Repetitions (reps) 3 Comments Stair Climbing Comments Pt's steps at home are carpeted and pt has size 17 feet. Practice was completed on the therapy stairs due to IV line limitations but PT counseled the pt and his to take extra care at home due to limited lower field of vision while wearing soft collar. PT-Balance Assessment Sitting Balance and Reactions Static Sitting Balance Ability Good Dynamic Sitting Balance Ability Good Standing Balance and Reactions Static Standing Balance Ability Good Dynamic Standing Balance Ability Good Device Used no AD M5 PT-IP Objective Assessments Start: 10/24/20 15:29 Freq: NEEDED Status: Active Protocol: Document 10/24/20 16:11 AW (Rec: 10/24/20 16:46 AW [id number]) Orientation Orientation/Cognition Level of Alertness Alert Orientation Name,Age,Birthday,Month,Date, Year,Day of Week,Place, Situation Language Function Ability No Deficits Noted Safety Awareness Understands Safety Issues Memory Description No Deficits Noted Gross Range of Motion Upper Extremity ROM Assessment Within Functional Limits Lower Extremity ROM Assessment Within Functional Limits Strength Upper Extremity Strength Assessment Bilaterally Impaired Lower Extremity Strength Assessment Within Functional Limits Comments Strength Comments Painful shoulder elevation limiting ROM. Make Ready Worker strength ~4 /5 bilaterally Coordination Assessment Gross Coordination Gross Coordination WNL Sensation Assessment Sensation Gross Sensation Right UE Impaired,Left UE Impaired Light Touch Impaired Comments Sensation Comments Pt notes improvement in chronic numbness in bilateral hands. Muscle Tone Muscle Tone WNL Yes M6 PT-IP Treatment Start: 10/24/20 15:29 Freq: NEEDED Status: Active Protocol: Document 10/24/20 16:11 AW (Rec: 10/24/20 16:46 AW [id number]) Physical Therapy Treatment Education Education Provided Precautions,Post-Op Packet, Safety M7 PT-IP Assessment and Plan Start: 10/24/20 15:29 Freq: NEEDED Status: Active Protocol: Document 10/24/20 16:11 AW (Rec: 10/24/20 16:46 AW [id number]) PT Summary Assessment and Plan Potential Rehabilitation Potential Good Status of Condition at Evaluation Evolving Summary Impairments Pain,ROM,Strength,Sensation, Gait,Activity Tolerance Assessment Summary Henry is a 55 yo man seen for PT evaluation on POD0 following C5-7 ACDF. He is independent in all regards at baseline. On evaluation, he completed all mobility SBA and demonstrated good attention to limiting her cervical ROM. He lives with his teenaged children and his who is an RN. Pt is safe for discharge home with assist. No further PT needs are identified. Frequency of Treatment Frequency Of Treatment Discharge Recommendations To Nursing Amount of Assist Needed Standby Assistance Discharge Recommendations PT Discharge Recommendations Home with Assistance Transportation Needs at Discharge Private Vehicle
[2020-10-24] MEDS: BENZOCAINE/MENTHOL 1 LOZ PKT 1 EACH PO ×2 (17:25→21:01)
[2020-10-24] MEDS: HYDROMORPHONE 0.5 MG INJ IV (17:29)
[2020-10-24] MEDS: OXYCODONE IR 10 MG TABLET PO ×3 (18:17→23:37)
[2020-10-24] MEDS: diazePAM 5 MG TABLET PO ×2 (18:18→23:50)
[2020-10-24] MEDS: FLECAINIDE 100 MG TABLET 50 MG PO (21:02)
[2020-10-24] MEDS: TRAZODONE 100 MG TABLET PO (21:03)
[2020-10-24] MEDS: ASPIRIN 325 MG TABLET PO (21:03)
[2020-10-24] MEDS: GABAPENTIN 300 MG CAPSULE PO (21:04)
[2020-10-24] MEDS: PRAMIPEXOLE 0.25 MG TABLET 0.5 MG PO (21:04)
[2020-10-24] MEDS: ATORVASTATIN 20 MG TABLET 80 MG PO (21:05)
[2020-10-24] MEDS: DOCUSATE 100 MG CAPSULE PO (21:07)
[2020-10-24] MEDS: SENNOSIDES 8.6 MG TABLET 17.2 MG PO (21:08)
[2020-10-24] MEDS: FENOFIBRATE 145 MG TABLET PO (21:08)
[2020-10-25] MEDS: OXYCODONE IR 10 MG TABLET PO ×3 (02:33→08:36)
[2020-10-25 03:25] VITALS: BP 145/80; PULSE 78; RESP 16; TEMP 36.5; O2SAT 91
[2020-10-25] MEDS: CLINDAMYCIN 900 MG/50 ML PIGGYBACK 50 MG IV (03:58)
[2020-10-25] MEDS: HYDROMORPHONE 0.5 MG INJ IV (03:59)
[2020-10-25] MEDS: diazePAM 5 MG TABLET PO (05:26)
[2020-10-25] MEDS: PANTOPRAZOLE 40 MG TABLET PO (05:30)
--- NOTE | 2020-10-25 08:30 | PM.PNPO.1 ---
Subjective Subjective Date Patient Seen: 10/25/20 Time Patient Seen: 08:30 Interval history: Switched over to oxycodone overnight and doing better on oral medication only. Pain is about 6/10 at the base of the neck and shoulders. 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 Exam Vital Signs (past 8 hours): - 10/25/20 03:25 Temperature 97.7 F Pulse Rate 78 Respiratory Rate 16 Blood Pressure 145/80 H Pulse Oximetry 91 Oxygen Delivery Method Room Air Oxygen Flow Rate 0 Const Orientation: alert and oriented x3 Back/Spine/Pelvis Other: CDI. 5/5 motor both upper extremities except 4/5 bilateral printed circuit boards laminator. [facility] Medical History (Updated 10/16/20 @ 16:50 by Reji Handley MD) Acid reflux Arthritis BCC (basal cell carcinoma), chest Elevated hemoglobin A1c Fall Foraminal stenosis of cervical region History of cardioversion (~2015) HLD (hyperlipidemia) HTN (hypertension) Left wrist injury Surgical History (Updated 10/16/20 @ 10:13 by Sadie Benites RN) History of vasectomy Hx of appendectomy S/P epidural steroid injection Family History Father Heart disease Melanoma Sister Heart disease Mother Diabetes mellitus Migraines Social History (Updated 11/02/19 @ 14:31 by Yin Hurd) marital status: household members: spouse and children Smoking Status: Former smoker alcohol intake: former substance use type: does not use Assessment & Plan Post-op Postoperative Procedures: Procedures Operation Date: 10/24/20 10:15 Actual Procedures Side Surgeon p C56 & C67 anterior cervical discectomy & fusion Jesse Ray MD He is doing well. I am going to give him 1 dose of IV steroids which hopefully will help with some of swelling and nerve irritation. Plan to discharge home
[2020-10-25] MEDS: CELECOXIB 200 MG CAPSULE PO (08:36)
[2020-10-25] MEDS: DEXAMETHASONE 10 MG/ML VIAL IV (08:37)
[2020-10-25] MEDS: FLECAINIDE 100 MG TABLET 50 MG PO (08:45)
[2020-10-25] MEDS: LORATADINE 10 MG TABLET PO (08:45)
[2020-10-25] MEDS: DOCUSATE 100 MG CAPSULE PO (08:45)
[2020-10-25] MEDS: METOPROLOL IR 25 MG TABLET PO (08:45)
[2020-10-25] MEDS: VENLAFAXINE ER 75 MG CAP 225 MG PO (08:45)
--- NOTE | 2020-10-25 09:07 | PC.NURSE ---
Day shift: Paperwork signed and all questions answered. Pt has MD patel. Pt has all personal belongings. Dressing is CDI and Pt tolerating soft collar. No nausea. Medicated for pain prior to d/c. Taken to car in by this senior writer. Pt's spouse will drive Pt home.
--- NOTE | 2020-10-25 10:23 | CM.DANOTE ---
Discharge Planning/Care Management DCP: assesment and d/c. Pt admitted yesterday for a scheduled cervical spinal surgery. His spouse Cecelia, who works as an RN at on the acute care floor, was here this morning. Both pt and Cecelia spoke with Dr. Ray and pt was ok'd for d/c to home setting and family care. Pt left for home in company of Cecelia at 0900. Advanced directive, confirm from FAMILY Start: 10/24/20 13:18 Freq: Q24H Status: Discharge Protocol: Document 10/24/20 13:18 CLP (Rec: 10/24/20 14:08 CLP [id number]) Advance Directive, confirm on record Time 14:07 Person contacted Reina Copy received No CM Discharge Assessment Start: 10/25/20 10:23 Freq: Status: Active Protocol: Document 10/25/20 10:23 ITV (Rec: 10/25/20 10:23 ITV [id number]) Discharge Planning Assessment Advance Directives? Yes Advance Directives on File No History Provided By Patient,Family Member,Medical Record Prior Living Arrangements House Household Members spouse,children Independent with ADL's Yes Is patient alert and oriented? Yes Pre-Anesthesia Assessment Start: 10/16/20 09:24 Freq: Status: Complete Protocol: Document 10/23/20 13:26 CAB (Rec: 10/16/20 10:51 CAB [id number]) Pre-Anesthesia Assessment PAC Comment Reviewed clearance from PCP with sacha Burgos to proceed Preferred Name Ed or Edward Patient Information Reviewed Via Phone Assessment Assessment Completed With Patient Diagnostic Results BMP/CMP,CBC Comment Labs @ , outside EKG scanned , COVID screen @ 10/23/20 Negative Primary Care Provider Reji Handley Medical Clearance Received Yes Seen Specialist in Last 12 Months Yes Specialist Seen Library Clerical Assistant,Orthopedist,Sleep specialist,Other Comment PCP clearance 10/16/20 Primary Language Mohawk Bar Roller Required No Height 203.2 cm Weight 165.561 kg Body Mass Index (BMI) 40.1 Hearing Ability Normal Visual Assist Magnifying Glass Dentition Type Teeth, Natural Present Barriers to Learning None Hx Anesthesia Reactions No Hx Family Anesthesia Reaction No Hx Malignant Hyperthermia No Hx Blood Transfusions No Anesthesia Review Requested Yes: Surgeon requested re: Sleep apnea, Afib alcohol intake former Smoking Status Former smoker how long ago did patient quit smoking Quit 05/18/2007 Substance Use Type does not use Pain Present Pain Reported Musculoskeletal Symptoms Limited Range of Motion,Neck Pain,Numbness,Radiating Pain into Limb History of Falling (Recent or History of No ) Patient is completely paralyzed or No completely immobile Mental Status Oriented to own ability Is patient on oxygen? No Does patient have PARKER/SOB No Hx Sleep Apnea Yes: BiPAP CPAP/BIPAP use prescribed and used routinely Will Bring CPAP/BIPAP DOS Yes Currently Taking a Beta Samir Yes: Metoprolol Can You Climb a Flight of Stairs Without No SOB Hx Chest Pain No Hx SOB No Hx Syncope or Dizziness No Anti-Coagulant Therapy Yes: Aspirin 325mg-pt will ask PCP for stopping instructions Has a Library Clerical Assistant Yes: Dr. Cho-last visit Hx Pacemaker/ICD No Pacemaker Rep Required? No Cardiac Clearance Received Not Applicable Comment Cardiac records scanned Diet Type At Home Regular dysphagia No Gastrointestinal Symptoms Reflux Urinary Catheter Present No Hx Urinary Self Catheterization No Diabetes Yes HgbA1C 6.8 Date 10/04/20 Hx Drug Resistant Organism No Presence of External or Internal Medical Yes: BiPAP Devices Have you had any close contact with No someone diagnosed with COVID-19? Marital Status Lives With spouse,children Prior Living Arrangements House Number of Floors (Floors) Two Floors Support System Spouse Does the Patient Have Assistance After No Surgery Patient Discharge Plan Description Return Home Comment Pt advised overnight length of stay per surgeon Feels Safe in Current Environment Yes Been Physically Hurt or Threatened By a No Person in Current Environment Do you have thoughts of harming yourself None or others? Are you currently considering suicide? No Do you have a plan to hurt yourself or No Plan others? Do You Have Any Spiritual Beliefs That No May Affect Your HC Choices? Do You Have Any Cultural Practices That No May Affect Your HC Choices? Who Can We Speak to About Patient's Care Family, friends Identifying Code for Release of Patient Declines to issue Information Health Care Proxy/Next of Kin Nicolasa () Health Care Proxy Emergency Contact Name Nicolasa () Emergency Contact Advance Directives? Yes Advance Directives on File No Requested Patient Bring Advanced Yes Directives DOS Power of Religious Education Teacher Yes Power of Religious Education Teacher Name Nicolasa () Power of Religious Education Teacher PAC Instructions Bring CPAP/BIPAP,Durable medical equipment,Medications to take/avoid,Nasal antibiotic ,No ETOH/petroleum product on skin DOS,NPO,Pre-surgical wash ,Sturdy shoes/comfortable clothes,Do not bring valuables and remove jewelry
== END 2020-10-25 09:08 | disposition home or self-care (01) ==
LOC: OR 08:56 → AC 08:57
PROVIDERS: PCP Internal Medicine; Referring Provider Internal Medicine; Visit Provider Orthopaedic Surgery
PROC: (CPT 22853; principal; 2020-10-24 10:15)
DX: M48.02 Spinal stenosis, cervical region (principal); G99.2 Myelopathy in diseases classified elsewhere; G47.30 Sleep apnea, unspecified; E66.9 Obesity, unspecified; I10 Essential (primary) hypertension; F32.9 Major depressive disorder, single episode, unspecified; I48.91 Unspecified atrial fibrillation
CPT/HCPCS: 22853 ×2; 20939; 22551 ×2; 72040; 76000; 82962; 97161; C1776; J0330; J1100; J1170; J2250; J2405; J2704

== ENCOUNTER → 2021-01-24 15:36 | Outpatient (CLI) | payer OTHER, SELFPAY ==
[2020-10-24 13:12] VITALS: BMI 39.6
[2021-01-24] MEDS: COVID-19 VACC #1, MRNA(MOD) 100 MCG/0.5 ML VIAL IM (15:44)
== END ==
PROVIDERS: PCP Internal Medicine; Visit Provider Internal Medicine
DX: Z23 Encounter for immunization (principal)
CPT/HCPCS: 0011A; 91301

== ENCOUNTER → 2021-02-21 15:17 | Outpatient (CLI) | payer OTHER, SELFPAY ==
[2020-10-24 13:12] VITALS: BMI 39.6
[2021-02-21] MEDS: COVID-19 VACC #2, MRNA(MOD) 100 MCG/0.5 ML VIAL IM (15:28)
== END ==
PROVIDERS: Visit Provider Internal Medicine
DX: Z23 Encounter for immunization (principal)
CPT/HCPCS: 0012A; 91301

== ENCOUNTER → 2021-06-26 06:47 | Outpatient (CLI) | payer OTHER, SELFPAY ==
[2020-10-24 13:12] VITALS: BMI 39.6
[2021-06-26 08:18] LABS: Hematocrit 39.9 % (41-53); Hemoglobin 13.3 g/dL (13.5-17.5); Mean Corpuscular HGB Conc 33.4 % (30-36); Mean Corpuscular Hemoglobin 28.8 PG (26-34); Mean Corpuscular Volume 86.2 fL (80-100); Platelet Count 229 X10^3/uL (150-400); Red Blood Cell Count 4.63 X10^6/uL (4.5-5.9)
[2021-06-26 08:25] LABS: Hemoglobin A1C% w Est Avg Glu 6.2 % (4.0-6.0)
[2021-06-26 08:34] LABS: Creatinine Urine Random 181.7 mg/dL
[2021-06-26 08:40] LABS: Microalbumin Urine Random < 0.6 mg/dL (0-1.6)
[2021-06-26 08:43] LABS: Cholesterol 169 mg/dL (140-199); Creatine Kinase 253 U/L (55-170); HDL Cholesterol 35 mg/dL (40-60); LDL Cholesterol Calculated 81 mg/dL (<100); Triglycerides 265 mg/dL (35-150)
== END ==
PROVIDERS: PCP Internal Medicine; Referring Provider Internal Medicine; Visit Provider Internal Medicine
DX: E78.2 Mixed hyperlipidemia (principal); E11.9 Type 2 diabetes mellitus without complications; I48.0 Paroxysmal atrial fibrillation
CPT/HCPCS: 36415; 80061; 82043; 82550; 82570; 83036; 85027

== ENCOUNTER → 2021-08-28 11:44 | Outpatient (CLI) | payer OTHER, SELFPAY ==
[2020-10-24 13:12] VITALS: BMI 39.6
--- NOTE | 2021-08-28 11:45 | DI.RAD.S_ITS ---
PROCEDURE: XR LUMBAR SPINE 2-3V INDICATIONS: lower back pain TECHNIQUE: 3 views of the lumbar spine were acquired. COMPARISON: April 20, 2017. FINDINGS: Bones: 5 [id number] vertebrae are present. Facet arthrosis, most prominent at L4 -S1. No vertebral body compression fractures. No suspicious bony lesions. The sacroiliac joints are patent. Soft tissues: Overlying bowel gas pattern is normal. No suspicious soft tissue calcifications. IMPRESSION: No acute osseous abnormality. Dictated by: Brayden Lou M.D. on 08/28/2021 at 13:18 Approved by: Brayden Lou M.D. on 08/28/2021 at 13:21
== END ==
PROVIDERS: PCP Internal Medicine; Referring Provider Registered Nurse; Visit Provider Registered Nurse
DX: M54.50 Low back pain, unspecified (principal)
CPT/HCPCS: 72100

== ENCOUNTER → 2021-10-07 13:34 | Outpatient (CLI) | payer OTHER, SELFPAY ==
[2021-09-02 12:39] VITALS: BMI 39.6
--- NOTE | 2021-10-07 13:37 | DI.MRI.S_ITS ---
PROCEDURE: MR LUMBAR SPINE WO CON INDICATIONS: Left L5 lumbar radiculopathy. TECHNIQUE: Noncontrast sagittal T1 spin echo and T2 fast echo, sagittal STIR, axial T1 and T2 fast spin echo through the lumbar spine. In cases with scoliosis, additional coronal T2 fast spin echo may be performed. COMPARISON: None. FINDINGS: Image quality: Excellent. Alignment and Curvature: Normal lumbar vertebral body height and alignment. Bone Marrow: No suspicious focal marrow signal abnormality or bone marrow edema. Spinal Cord: Normal position and appearance of the conus. Regional Soft Tissues: Prevertebral and paraspinous soft tissues are normal. T12-L1: No spinal canal or neural foraminal stenosis. L1-L2: No spinal canal or neural foraminal stenosis. L2-L3: No spinal canal or neural foraminal stenosis. Mild facet hypertrophy. L3-L4: Diffuse disc bulge flattens the ventral thecal sac. There is displacement of the bilateral L4 nerve roots against the adjacent facet material within both subarticular zones (series 5, image 24). Mild bilateral neural foraminal narrowing due to foraminal components of the disc bulge and facet hypertrophy. Small facet effusions with subchondral cystic change. L4-L5: No spinal canal or neural foraminal stenosis. Mild facet hypertrophy with small facet effusions and subchondral cystic change. L5-S1: No spinal canal or neural foraminal stenosis. IMPRESSION: Moderate subarticular zone stenosis at L3-L4 with displacement and possible impingement of the descending L4 nerve roots. Correlate for any corresponding L4 radicular symptoms. Dictated by: Dimitri Driscoll M.D. on 10/07/2021 at 14:45 Approved by: Dimitri Driscoll M.D. on 10/07/2021 at 15:05
== END ==
PROVIDERS: PCP Internal Medicine; Referring Provider Physical Medicine & Rehabilitation; Visit Provider Physical Medicine & Rehabilitation
DX: M54.16 Radiculopathy, lumbar region (principal); M48.061 Spinal stenosis, lumbar region without neurogenic claudication
CPT/HCPCS: 72148

== ENCOUNTER → 2021-11-12 09:42 | Outpatient (CLI) | payer OTHER, SELFPAY ==
[2021-09-02 12:39] VITALS: BMI 39.6
[2021-11-12 11:30] LABS: Alanine Aminotransferase 54 IU/L (<50); Albumin 4.2 g/dL (3.5-5.0); Albumin Globulin Ratio 1.2 (1.0-2.8); Alkaline Phosphatase 45 U/L (38-126); Aspartate Aminotransferase 45 IU/L (17-59); BUN Creatinine Ratio 18.8 (6-22); Bilirubin Total 0.4 mg/dL (0.2-1.3); Blood Urea Nitrogen 16 mg/dL (9-20); Calcium 9.3 mg/dL (8.4-10.2); Carbon Dioxide 27 mmol/L (22-32); Chloride 102 mmol/L (98-107); Cholesterol 162 mg/dL (140-199); Estimated Glomerular Filt Rate > 60.0 mL/min (>60); Globulin 3.4 g/dL (1.7-4.1); Glucose 119 mg/dL (70-100); HDL Cholesterol 26 mg/dL (40-60); HEMOLYSIS < 15 (0-50); Potassium 4.3 mmol/L (3.4-5.1); Sodium 136 mmol/L (137-145); Total Protein 7.6 g/dL (6.3-8.2)
[2021-11-12 11:37] LABS: Hemoglobin A1C% w Est Avg Glu 6.8 % (4.0-6.0)
[2021-11-12 11:43] LABS: Triglycerides 593 mg/dL (35-150)
== END ==
PROVIDERS: PCP Internal Medicine; Referring Provider Nurse Practitioner Acute Care; Visit Provider Nurse Practitioner Acute Care
DX: I48.0 Paroxysmal atrial fibrillation (principal); Z51.81 Encounter for therapeutic drug level monitoring; Z79.899 Other long term (current) drug therapy; E11.9 Type 2 diabetes mellitus without complications; E78.2 Mixed hyperlipidemia
CPT/HCPCS: 36415; 80053; 80061; 83036

== ENCOUNTER → 2022-06-22 16:05 | Outpatient (CLI) | payer OTHER, SELFPAY ==
[2021-09-02 12:39] VITALS: BMI 39.6
[2022-06-22 17:57] LABS: Alanine Aminotransferase 55 IU/L (<50); Albumin 4.2 g/dL (3.5-5.0); Albumin Globulin Ratio 1.2 (1.0-2.8); Alkaline Phosphatase 53 U/L (38-126); Aspartate Aminotransferase 59 IU/L (17-59); BUN Creatinine Ratio 19.2 (6-22); Bilirubin Total 0.3 mg/dL (0.2-1.3); Blood Urea Nitrogen 20 mg/dL (9-20); Calcium 9.1 mg/dL (8.4-10.2); Carbon Dioxide 25 mmol/L (22-32); Chloride 104 mmol/L (98-107); Estimated Glomerular Filt Rate > 60 mL/min (>60); Globulin 3.6 g/dL (1.7-4.1); Glucose 140 mg/dL (70-100); HEMOLYSIS < 15 (0-50); Potassium 4.8 mmol/L (3.4-5.1); Sodium 139 mmol/L (137-145); Total Protein 7.8 g/dL (6.3-8.2)
== END ==
PROVIDERS: PCP Internal Medicine; Referring Provider Nurse Practitioner Acute Care; Visit Provider Nurse Practitioner Acute Care
DX: Z51.81 Encounter for therapeutic drug level monitoring (principal); Z79.899 Other long term (current) drug therapy
CPT/HCPCS: 36415; 80053

== ENCOUNTER → 2022-10-05 09:27 | Outpatient (CLI) | payer OTHER, SELFPAY ==
[2021-09-02 12:39] VITALS: BMI 39.6
[2022-10-05 12:19] LABS: COVID19 -Nasal RAPID Negative (Negative)
== END ==
PROVIDERS: PCP Internal Medicine; Visit Provider Surgery
DX: Z01.812 Encounter for preprocedural laboratory examination (principal); Z20.822 Contact with and (suspected) exposure to COVID-19
CPT/HCPCS: 87635; C9803

== ENCOUNTER 2022-10-06 06:42 | Day surgery (SDC) | payer OTHER, SELFPAY ==
[2021-09-02 12:39] VITALS: BMI 39.6
--- NOTE | 2022-10-06 | PATH_ITS ---
[facility] Accession Number: [id number] . 01 Material submitted: . PART A: colon - TRANSVERSE COLON POLYP PART B: sigmoid colon - SIGMOID COLON POYLP . 01 Diagnosis: A. Transverse Colon Polyp, Biopsy: Tubular adenoma. . B. Sigmoid Colon Polyp, Biopsy: Tubular adenoma. [facility] 10/08/2022 1038 Local . 01 Electronically signed: . Kristina Guerra MD, Pathologist NPI- [id number] . 01 Gross description: . Part A: TRANSVERSE COLON POLYP: Received in formalin is 1 fragment(s) of rodas, soft tissue measuring 0.2 x 0.1 x 0.1 cm submitted entirely in 1 cassette(s) Part B: SIGMOID COLON POYLP: Received in formalin is 1 fragment(s) of rodas, soft tissue measuring 0.2 x 0.2 x 0.2 cm submitted entirely in 1 cassette(s) /CPE 10/07/2022 0623 Local . 01 Pathologist provided ICD-10: D12.3, D12.5 . 01 CPT . 030430, [id number] Specimen Comment: A courtesy copy of this report has been sent to [phone] Performed at: 01 [facility] [address] [place] [address] [address] [facility], [place], [place] [id number] MD Avni Jain MD Phone: [phone]
[2022-10-06] MEDS: LACTATED RINGERS 1,000 ML 200 ML IV (07:32)
[2022-10-06 07:33] VITALS: BP 166/86; PULSE 93; RESP 16; TEMP 36.1; O2SAT 97; BMI 38.4
--- NOTE | 2022-10-06 07:42 | PM.HP.1 ---
History of Present Illness History of Present Illness Date Patient Seen: 10/06/22 Time Patient Seen: 07:42 Chief complaint: Colonoscopy Narrative: The patient presents for colorectal screening. Last colonoscopy 8 years ago significant for benign polyp. No personal or family history of colon cancer. On further history denies any recent gastrointestinal symptoms. No nausea, vomiting, abdominal pain, loss of appetite, unexplained weight loss, change in bowel habits, diarrhea, constipation, melena, hematochezia, or bright red blood per rectum. Patient History Medical History Acid reflux Arthritis BCC (basal cell carcinoma), chest Cervical spondylosis with radiculopathy Depression (06/02/16) Facet arthropathy, cervical Foraminal stenosis of cervical region Herniated nucleus pulposus, cervical History of adenomatous polyp of colon (~2014) History of cardioversion (~2015) HTN (hypertension) Lower back pain Lumbar radiculopathy Mixed hyperlipidemia Paroxysmal atrial fibrillation Radiculopathy of cervical spine Sleep apnea (06/30/16) Type 2 diabetes mellitus Surgical History H/O neck surgery History of vasectomy (10/24/20) Hx of appendectomy S/P epidural steroid injection Family & Social History Family History Father Heart disease Melanoma Sister Heart disease Mother Diabetes mellitus Migraines Social History: household members spouse,children Tobacco & Substance use: Smoking Status Former smoker alcohol intake former Substance Use Type does not use Meds Home Medications and Allergies Home Medications Medication Instructions Recorded Confirmed Type cetirizine 10 mg tablet 10 mg PO QDAY ##0 12/27/11 10/06/22 History omeprazole 40 mg capsule,delayed 40 mg PO QDAY #0 caps 08/04/13 10/06/22 History release flecainide 50 mg tablet 50 mg PO BID ##0 06/30/16 10/06/22 History apixaban 5 mg tablet (Eliquis) 5 mg PO BID 07/01/21 10/06/22 History fenofibrate nanocrystallized 145 145 mg PO BEDTIME #90 tabs 08/17/22 10/06/22 Rx mg tablet atorvastatin 80 mg tablet 80 mg PO BEDTIME #90 tabs 08/20/22 10/06/22 Rx celecoxib 200 mg capsule 200 mg PO DAILY #90 caps 08/20/22 10/06/22 Rx metoprolol tartrate 25 mg tablet 25 mg PO DAILY #90 tabs 08/20/22 10/06/22 Rx pramipexole 0.5 mg tablet 0.5 mg PO BEDTIME #90 tabs 08/20/22 10/06/22 Rx trazodone 100 mg tablet 100 mg PO BEDTIME #90 tabs 08/20/22 10/06/22 Rx venlafaxine 75 mg capsule,extended 225 mg PO DAILY #270 caps 08/20/22 10/06/22 Rx release 24 hr metoprolol tartrate 25 mg tablet 25 mg PO DAILY 10/06/22 10/06/22 History Allergies Allergy/AdvReac Type Severity Reaction Status Date / Time cefotetan [CEFOTETAN] Allergy Intermediate ITCHING Verified 10/06/22 07:18 Exam Vital Signs (past 8 hours): - 10/06/22 07:33 Temperature 97 F L Pulse Rate 93 H Respiratory Rate 16 Blood Pressure 166/86 H Pulse Oximetry 97 Oxygen Delivery Method Room Air Oxygen Delivery Method Room Air Narrative Exam Narrative: General adult man alert oriented no acute distress Extremities warm well perfused Assessment & Plan Assessment and plan (1) Screening for colon cancer: Status: Acute Assessment & Plan narrative: The patient requires colorectal screening and colonoscopy is recommended. Technical details were discussed. Risks, benefits, alternatives explained. Risks including but not limited to myocardial infarction, aspiration, bleeding, pain, missed lesion, incomplete examination, need for further radiographic studies, colonic perforation, and need for major abdominal surgery were discussed. All questions were answered to their satisfaction, and they are in agreement with this plan. Time Spent With Patient Critical Care time: I spent a total of [] minutes of critical care time on this patient's care today; this time is exclusive of procedural time.
--- NOTE | 2022-10-06 07:43 | PM.OP.COLON ---
Operative Date/Time/Diagnoses Date of procedure: 10/06/22 Time of procedure: 07:43 Pre-op diagnosis: Colorectal screening Post-op diagnosis: same Procedure & Clinicians Study performed: Colonoscopy Same procedure as scheduled: Yes Indications: Screening Surgeon: Krunal Holcomb Procedure Notes Procedure in detail: The history and physical was performed/updated and the patient is ASA class is 2. The procedure was discussed in detail with the patient. Potential risks complications including infection, bleeding, missed diagnosis, perforation, need for surgery, and were explained. Their questions were answered and informed consent was obtained. Patient was brought to the procedure room and placed standard monitoring equipment. The patient's vital signs were monitored continuously throughout the entire procedure. Prior to starting time-out was performed. The patient was placed in the left lateral recumbent position. Procedural sedation was administered by anesthesia. Examination began with a thorough inspection of the perianal area there was no evidence of fissures, fistulae, external hemorrhoids or cutaneous malignancy. The colonoscopy scope was then placed into the anal canal and was advanced to the cecum, which was identified by the ileocecal valve, the appendiceal orifice and the confluence of the taenia. The scope was then slowly withdrawn examining colon thoroughly in all directions, irrigating it of any residual stool. FINDINGS 1. Transverse colon-3 mm polyp removed with biopsy forceps 2. Sigmoid colon-5 mm polyp removed with biopsy forceps 3. Sigmoid colon mild diverticulosis The patient tolerated the procedure well. They will be discharged once criteria are met. The prep was of good/excellent quality. The withdrawl time was 8 minutes. Specimen(s): other (Transverse and sigmoid colonic polyps) Impression: Colonic polyps Diverticulosis Post-procedure Recommendations: High fiber diet Plan for aftercare: Follow-up dependent on pathology findings Disposition: same day surgery
[2022-10-06 08:14] VITALS: BP 171/82; PULSE 82; RESP 9; TEMP 36.3; O2SAT 94
[2022-10-06 08:19] VITALS: BP 158/82; PULSE 76; RESP 12; O2SAT 94
[2022-10-06 08:24] VITALS: BP 138/89; PULSE 89; RESP 18; O2SAT 95
[2022-10-06 08:29] VITALS: BP 133/86; PULSE 82; RESP 12; TEMP 36.9; O2SAT 95
[2022-10-06 08:35] VITALS: BP 147/83; PULSE 83; RESP 12; TEMP 36.9; O2SAT 95
== END 2022-10-06 08:40 | disposition home or self-care (01) ==
PROVIDERS: PCP Internal Medicine; Referring Provider Surgery; Visit Provider Surgery
PROC: 0DJD8ZZ Inspection of Lower Intestinal Tract, Via Natural or Artificial Opening Endoscopic (ICD-10-PCS; CPT 45378; principal; 2022-10-06 07:45)
DX: Z12.11 Encounter for screening for malignant neoplasm of colon (principal); Z86.010 Personal history of colon polyps; K57.30 Diverticulosis of large intestine without perforation or abscess without bleeding; D12.3 Benign neoplasm of transverse colon; D12.5 Benign neoplasm of sigmoid colon
CPT/HCPCS: 45380; J2704; J3010

== ENCOUNTER → 2023-01-06 07:07 | Outpatient (CLI) | payer OTHER, SELFPAY ==
[2021-09-02 12:39] VITALS: BMI 39.6
[2023-01-06 08:47] LABS: Hemoglobin A1C% w Est Avg Glu 7.9 % (4.0-6.0)
[2023-01-06 09:17] LABS: HEMOLYSIS < 15 (0-50)
[2023-01-06 09:25] LABS: Alanine Aminotransferase 65 IU/L (<50); Albumin 4.1 g/dL (3.5-5.0); Albumin Globulin Ratio 1.3 (1.0-2.8); Alkaline Phosphatase 59 U/L (38-126); Aspartate Aminotransferase 59 IU/L (17-59); Bilirubin Total 0.3 mg/dL (0.2-1.3); Blood Urea Nitrogen 20 mg/dL (9-20); Calcium 8.9 mg/dL (8.4-10.2); Carbon Dioxide 27 mmol/L (22-32); Chloride 101 mmol/L (98-107); Cholesterol 163 mg/dL (140-199); Estimated Glomerular Filt Rate > 60 mL/min (>60); Globulin 3.2 g/dL (1.7-4.1); Glucose 161 mg/dL (80-110); HDL Cholesterol 34 mg/dL (40-60); LDL Cholesterol Calculated 60 mg/dL (<100); Potassium 4.4 mmol/L (3.4-5.1); Sodium 139 mmol/L (137-145); Total Protein 7.3 g/dL (6.3-8.2); Triglycerides 343 mg/dL (35-150)
[2023-01-06 09:36] LABS: LDL Cholesterol Direct 75 mg/dL (<100)
[2023-01-06 10:14] LABS: Creatinine Urine Random 194.7 mg/dL
[2023-01-06 10:18] LABS: Microalbumi Creatinin Ratio Ur 7.1 ug/mg CR (<30); Microalbumin Urine Random 1.4 mg/dL (0-1.6)
[2023-01-08 09:51] LABS: Prostate Specific Antigen Scrn 0.444 ng/mL (0.1-4.0)
== END ==
PROVIDERS: PCP Internal Medicine; Referring Provider Student in an Organized Health Care Education/Training Program; Visit Provider Student in an Organized Health Care Education/Training Program
DX: I48.0 Paroxysmal atrial fibrillation (principal); Z51.81 Encounter for therapeutic drug level monitoring; Z79.899 Other long term (current) drug therapy; E11.9 Type 2 diabetes mellitus without complications; E78.2 Mixed hyperlipidemia; G47.30 Sleep apnea, unspecified; Z12.5 Encounter for screening for malignant neoplasm of prostate
CPT/HCPCS: 36415; 80053; 80061; 82043; 82570; 83036; 83721; G0103

== ENCOUNTER → 2023-03-09 16:38 | Outpatient (CLI) | payer OTHER, SELFPAY ==
[2021-09-02 12:39] VITALS: BMI 39.6
--- NOTE | 2023-03-09 16:40 | DI.RAD.S_ITS ---
PROCEDURE: XR CERVICAL SPINE 4V OR 5V INDICATIONS: NECK PAIN TECHNIQUE: 5 total views of the cervical spine were acquired, including bilateral oblique views. COMPARISON: [facility], CR, XR CERVICAL SPINE 2V OR 3V, 10/24/2020, 11:28. [facility] [place], CR, XR CERVICAL SPINE 2 OR 3 VIEWS, 11/07/2020, 13:10. [facility], CR, XR CERVICAL SPINE 2 OR 3 VIEWS, 03/05/2021, 14:36. [facility], CR, XR CERVICAL SPINE 2 OR 3 VIEWS, 06/04/2021, 8:14. FINDINGS: Bones: No fractures or dislocations to the C7-T1 level. Anteriorly placed fixation hardware is again seen at C5-C6 and C6-C7. No findings of hardware failure or hardware loosening are seen. The disc heights are relatively well preserved. On oblique images, there is moderate right-sided neural foraminal narrowing seen at C4-C5, C5-C6, C6-C7, and C7-T1. On the left, there is moderate neural foraminal narrowing seen at C3-C4, C5-C6, C6-C7, and C7-T1, with [id number] neural foraminal narrowing seen at C4-C5. There is overall straightening of the normal cervical lordosis. Soft tissues: No prevertebral soft tissue swelling. The visualized lung apices are unremarkable. IMPRESSION: Lower cervical spine fixation hardware. Multiple levels of significant neural foraminal narrowing can be seen. Dictated by: Camacho Pineda M.D. on 03/09/2023 at 16:10 Approved by: Camacho Pineda M.D. on 03/09/2023 at 16:13
== END ==
PROVIDERS: PCP Internal Medicine; Referring Provider Physical Medicine & Rehabilitation; Visit Provider Physical Medicine & Rehabilitation
DX: M47.22 Other spondylosis with radiculopathy, cervical region (principal); M50.10 Cervical disc disorder with radiculopathy, unspecified cervical region; M48.02 Spinal stenosis, cervical region; Z98.1 Arthrodesis status
CPT/HCPCS: 72050

== ENCOUNTER → 2023-03-19 12:51 | Outpatient (CLI) | payer OTHER, SELFPAY ==
[2021-09-02 12:39] VITALS: BMI 39.6
--- NOTE | 2023-03-19 12:52 | DI.MRI.S_ITS ---
PROCEDURE: MR CERVICAL SPINE WO CON INDICATIONS: Neck pain right upper extremity paresthesias TECHNIQUE: Noncontrast sagittal T1 spin echo and T2 fast spin echo, sagittal STIR, foraminal oblique sagittal T2 fast spin echo, and axial gradient echo or T2 fast spin echo through the cervical spine. COMPARISON: [facility], CR, XR CERVICAL SPINE 4V OR 5V, 03/09/2023, 16:39. [facility], MR, MR CERVICAL SPINE WO CON, 10/02/2020, 18:45. FINDINGS: Image quality: Excellent. Alignment and Curvature: There is appearance of overall cervical straightening. Anterior fusion is present at C5 through C7. Bone Marrow: Marrow demonstrates normal overall signal. Spinal Cord: Visualized spinal cord has normal size and signal. No cerebellar tonsillar herniation. Paraspinous Soft Tissues: No paravertebral masses. Prevertebral soft tissues are normal in thickness. Disc Multilevel mild moderate disc desiccation is present. C2-C3: Mild disc bulge with mild spinal stenosis. Moderate to severe left and [id number] right foraminal narrowing minimally progressive with prominent uncovertebral arthropathy. C3-C4: Mild disc bulge with mild spinal stenosis. Severe left and moderate right foraminal narrowing appearing progressive bilaterally with uncovertebral arthropathy. C4-C5: Mild disc bulge with mild spinal stenosis. Severe right and moderate to severe left foraminal narrowing with uncovertebral hypertrophy, demonstrating interval progression. C5-C6: Disc bulge with mild spinal stenosis, minimally less prominent. There is moderate bilateral foraminal narrowing, progressive compared to prior exam with uncovertebral hypertrophy. C6-C7: Mild disc bulge with mild spinal stenosis, questionably minimally less prominent. Moderate bilateral foraminal narrowing with uncovertebral hypertrophy, progressive. C7-T1: Minimal disc bulge with mild spinal stenosis. Mild bilateral foraminal narrowing, slightly progressive. IMPRESSION: Multilevel moderate to severe foraminal narrowing progressive compared to prior exam with uncovertebral arthropathy. Multilevel overall mild spinal stenosis similar versus progressive as detailed above, predominantly secondary to disc bulge. Dictated by: Samaria Kulkarni M.D. on 03/19/2023 at 16:14 Approved by: Samaria Kulkarni M.D. on 03/19/2023 at 16:18
== END ==
PROVIDERS: PCP Internal Medicine; Referring Provider Physical Medicine & Rehabilitation; Visit Provider Physical Medicine & Rehabilitation
DX: M54.2 Cervicalgia (principal); R20.0 Anesthesia of skin
CPT/HCPCS: 72141

== ENCOUNTER 2023-04-08 13:38 | Outpatient (CLI) | payer OTHER, SELFPAY ==
[2021-09-02 12:39] VITALS: BMI 39.6
[2023-04-08] VITALS (8 sets, daily range): BP systolic 139–174; BP diastolic 75–92; PULSE 69–73; RESP 16–19; TEMP 36.1; O2SAT 96–98
--- NOTE | 2023-04-08 13:38 | DI.RAD.S_ITS ---
PROCEDURE: PAIN L/S TRANSFORAMINAL INJECT INDICATIONS: SPONDYLOSIS COMPARISON: None. FINDINGS: Fluoroscopic spot filming was performed to verify placement of spinal needles at the right L3-4 level(s), as labeled on the films. Appropriate location(s) of the needle tip(s) was confirmed by injection of iodinated contrast. IMPRESSION: Fluoroscopic guidance utilized for a right L3-4 epidural steroid injection. Dictated by: Ashwin Laurent M.D. on 04/08/2023 at 16:05 Approved by: Ashwin Laurent M.D. on 04/08/2023 at 16:06
[2023-04-08] MEDS: MIDAZOLAM 2 MG/2 ML VIAL IV (14:27)
[2023-04-08] MEDS: DEXAMETHASONE 10 MG/ML VIAL 20 MG INJ (14:31)
[2023-04-08] MEDS: BUPIVACAINE 0.25% (PF) VIAL 2 ML INJ (14:31)
[2023-04-08] MEDS: BETAMETHASONE 30 MG/5 ML MDV 12 MG INJ (14:31)
[2023-04-08] MEDS: IOPAMIDOL 15 ML VIAL 3 ML INJ (14:31)
--- NOTE | 2023-04-08 14:41 | P.PCN_ITS ---
Date/Time/Diagnoses Date of procedure: 04/08/23 Time of procedure: 14:41 Pre-procedure diagnosis: 1. FORAMINAL STENOSIS WITH LE SYMPTOMS Post-procedure diagnosis: same Procedure Notes Procedure: 1. FLUOROSCOPICALLY GUIDED CONTRAST CONTROLLED TRANSFORAMINAL EPIDURAL STEROID INJECTION - RIGHT L3/4 TFESI Indications: Henry is referred by Dr. Lowery for treatment of Foraminal Stenosis with right LE Symptoms Physician: Stephan Barragan Total Fluoroscopy time (seconds): 8 Total sedation minutes: 10 Complications: none Procedure in detail & Post-procedure care: FINDINGS Foraminal Nerve Root Compression secondary to disc disease and facet hypertrophy DESCRIPTION OF PROCEDURE Following review of allergy and review of potential side effects and complications, including, but not necessarily limited to, infection, allergic reaction, local tissue breakdown, stroke, temporary or permanent nerve injury, paralysis, and possible , the patient indicated that the patient understood and agreed to proceed. An informed consent document was signed by the patient, witnessed by a nurse, and placed in the patient's chart. Additionally, other treatment options including medications, modalities, and physical therapy were reviewed with the patient. After review of previous anaesthesic history and IV conscious sedation the patient was deemed safe to proceed with today?s procedure with IV conscious sedation as ASA class II designation. Safety time-out was performed to confirm patient ID, procedure to be performed and site of procedure. IV sedation was accomplished with a combination of 2mg of Versed was administered by the RN after DO order, titrated to patient comfort during the course of the procedure while the patient remained responsive to all verbal commands In the prone position following sterile prep and drape of the lumbar region, the right L3/4 posterior neuroforamen was identified fluoroscopically. The skin was anesthetized via a 25-gauge 1.5-inch needle with 1% lidocaine solution. At this point, a 25-gauge 3.5-inch spinal needle was atraumatically introduced and advanced under fluoroscopic guidance through the posterior right L3/4 neuroforamen to approximately the anterior aspect of the canal. Depth was confirmed on lateral view. Following negative aspiration, injection of approximately 1.5 cc of Isovue 200 under live fluoroscopy in the AP view conf irmed excellent flow along the nerve root, into the epidural space without vascular or intrathecal uptake observed Radiological data, including multiple fluoroscopic views of the lumbosacral spine, reveal a spinal needle at the right L3/4 posterior neuroforamen. Subsequent views show flow of contrast material flowing superiorly and inferiorly along the nerve root confirming epidural flow. Subsequently, a test dose of 1.5 cc of 1% lidocaine solution was administered and patient was observed for two minutes for signs or symptoms of complications, including abdominal pain, shortness of breath, bilateral upper or lower extremity weakness, nausea and vomiting, prior to steroid injection. At this point, a total of 3cc or 20mg of dexamethasone and 6mg of betamethasone was injected without incident. The patient tolerated the procedure well without signs or symptoms of complications prior to transfer to the recovery area continued monitoring without incident. The patient was then transferred to the recovery area where they were observed for an appropriate time after the injection. The patient reported a VAS score of 7 prior to the procedure and a post-procedure VAS of 0. POST OP INSTRUCTIONS The patient was provided a Pain Log to continue to record their response to the target-specific procedure prior to follow-up visit with their referring phy sician. Additionally, specific post-injection care instructions and a contact number to our office were provided if concerns arise regarding possible complications associated with the procedure are suspected.
== END 2023-04-08 15:05 | disposition home or self-care (01) ==
LOC: RAD 13:38
PROVIDERS: PCP Internal Medicine; Referring Provider Physical Medicine & Rehabilitation; Visit Provider Physical Medicine & Rehabilitation
DX: M48.061 Spinal stenosis, lumbar region without neurogenic claudication (principal); M51.16 Intervertebral disc disorders with radiculopathy, lumbar region; M47.26 Other spondylosis with radiculopathy, lumbar region
CPT/HCPCS: 64483; 99152; J3490

== ENCOUNTER 2023-04-22 08:32 | Outpatient (CLI) | payer OTHER, SELFPAY ==
[2021-09-02 12:39] VITALS: BMI 39.6
[2023-04-22] VITALS (9 sets, daily range): BP systolic 143–190; BP diastolic 76–98; PULSE 65–72; RESP 12–20; TEMP 36.2; O2SAT 94–97
--- NOTE | 2023-04-22 08:33 | DI.RAD.S_ITS ---
PROCEDURE: PAIN C/T INTERLAMINAR INJECT INDICATIONS: C 6/7 TL HANNA COMPARISON: [facility], , PAIN C/T INTERLAMINAR INJECT, 08/20/2020, 8:35. FINDINGS: Fluoroscopic spot filming was performed to verify placement of spinal needles at the C6-7 level(s), as labeled on the films. Appropriate location(s) of the needle tip(s) was confirmed by injection of iodinated contrast. IMPRESSION: Fluoroscopic epidural injection at C6-7. Dictated by: Acacia Keene M.D. on 04/22/2023 at 16:19 Approved by: Acacia Keene M.D. on 04/22/2023 at 16:19
[2023-04-22] MEDS: MIDAZOLAM 2 MG/2 ML VIAL IV ×2 (09:04→09:09)
[2023-04-22] MEDS: DEXAMETHASONE 10 MG/ML VIAL 30 MG INJ (09:08)
[2023-04-22] MEDS: BUPIVACAINE 0.25% (PF) VIAL 2 ML INJ (09:08)
[2023-04-22] MEDS: IOPAMIDOL 15 ML VIAL 3 ML INJ (09:10)
--- NOTE | 2023-04-22 09:24 | P.PCN_ITS ---
Date/Time/Diagnoses Date of procedure: 04/22/23 Time of procedure: 09:24 Pre-procedure diagnosis: 1. CERVICAL STENOSIS, 2. CERVICAL HNP WITH UPPER EXTREMITY RADICULAR FEATURES Post-procedure diagnosis: same Procedure Notes Procedure: 1. FLUORSCOPICALLY GUIDED CONTRAST CONTROLLED INTERLAMINAR EPIDURAL STEROID INJECTION - C6/7 TL HANNA Indications: Henry is referred by Dr. Lowery for treatment of Cervical HNP with Upper Extremity Paresthesias. Physician: Stephan Barragan Total Fluoroscopy time (seconds): 30 Total sedation minutes: 13 Complications: none Procedure in detail & Post-procedure care: FINDINGS Cervical Stenosis due to disc deterioration and nerve root irritation and nerve root irritation DESCRIPTION OF PROCEDURE Fluoroscopically guided, contrast-controlled C6/7 translaminar epidural steroid injection with conscious sedation. Following review of allergy and review of potential side effects and complications, including, but not necessarily limited to, infection, allergic reaction, local tissue breakdown, temporary as well as permanent nerve injury, stroke, paralysis, and possible , the patient indicated that patient understood and agreed to proceed. An informed consent document was signed by the patient, witnessed by a nurse, and placed in the patient's chart. Additionally, other treatment options including modalities, medications, and physical therapy were reviewed with the patient. After review of previous anaesthesic history and IV conscious sedation the patient was deemed safe to proceed with today?s procedure with IV conscious sedation as ASA class II designation. Safety time-out was performed to confirm patient ID, procedure to be performed and site of procedure. IV sedation was accomplished with a combination of 4mg of Versed administered by the RN after DO order, titrated to patient comfort during the course of the procedure while the patient remained responsive to all verbal commands. In the prone position, following sterile prep and drape of the cervical region, the C6/7 translaminar space was identified fluoroscopically. The skin was anesthetized via a 25-gauge 1.5-inch needle with 1% lidocaine solution. At this point, a 25-gauge, 2.5-inch short bevel spinal needle was atraumatically introduced and advanced under fluoroscopic guidance into epidural space at the C6/7 translaminar space. Depth was confirmed on lateral view. Radiological data, including multiple fluoroscopic views of the cervical spine, reveal a spinal needle at the C6/7 translaminar space. Lateral views then show placement of the needle in the epidural space. Subsequent views show contrast material flowing superiorly and inferiorly in the epidural space. DSA fluoroscopy with live contrast injection, once again, confirmed no vascular or intrathecal uptake. At this point, using loss of resistance technique with saline and air, the epidural space was entered. Following negative aspiration, injection of approximately 1.5 cc of Isovue-200 with live fluoroscopy in the AP view confirmed epidural flow in the epidural space without vascular or intrathecal uptake observed. Subsequently, a test dose of 1cc of 1% lidocaine solution was injected and patient was observed for two minutes without signs or symptoms of complications, including abdominal pain, shortness of breath, bilateral upper or lower extremity weakness, nausea and vomiting, prior to steroid injection. At this point, 3cc or 30mg of dexamethasone was then injected without incident. The patient tolerated the procedure well without signs or symptoms of compli cations prior to being transferred to the recovery area for further monitoring, The patient was then transferred to the recovery area where they were observed for an appropriate period of time after the injection. The patient reported a VAS score of 6 prior to the procedure and a post-procedure VAS of 0. POST OP INSTRUCTIONS The patient was provided a Pain Log to continue to record their response to the target-specific procedure prior to follow-up visit with the referring provider. Additionally, specific post-injection care instructions and a contact number to our office were provided if concerns arise regarding possible complications associated with the procedure are suspected.
== END 2023-04-22 09:42 | disposition home or self-care (01) ==
LOC: RAD 08:33
PROVIDERS: PCP Internal Medicine; Referring Provider Physical Medicine & Rehabilitation; Visit Provider Physical Medicine & Rehabilitation
DX: M48.02 Spinal stenosis, cervical region (principal); M50.123 Cervical disc disorder at C6-C7 level with radiculopathy
CPT/HCPCS: 62321; 99152; J1100; J2250; J3490

== ENCOUNTER → 2023-06-26 07:53 | Outpatient (CLI) | payer OTHER, SELFPAY ==
[2021-09-02 12:39] VITALS: BMI 39.6
[2023-06-26 09:12] LABS: Hemoglobin A1C% w Est Avg Glu 6.7 % (4.0-6.0)
[2023-06-26 09:22] LABS: Blood Urea Nitrogen 20 mg/dL (9-20); Calcium 9.3 mg/dL (8.4-10.2); Carbon Dioxide 23 mmol/L (22-32); Chloride 106 mmol/L (98-107); Estimated Glomerular Filt Rate > 60 mL/min (>60); Glucose 145 mg/dL (80-110); HEMOLYSIS < 15 (0-50); Potassium 4.3 mmol/L (3.4-5.1); Sodium 137 mmol/L (137-145)
== END ==
PROVIDERS: PCP Internal Medicine; Referring Provider Internal Medicine; Visit Provider Internal Medicine
DX: E11.9 Type 2 diabetes mellitus without complications (principal); E78.2 Mixed hyperlipidemia
CPT/HCPCS: 36415; 80048; 83036

== ENCOUNTER 2023-08-06 09:16 | Emergency (ER) | payer OTHER, SELFPAY ==
[2021-09-02 12:39] VITALS: BMI 39.6
[2023-08-06] VITALS (26 sets, daily range): BP systolic 123–170; BP diastolic 60–97; PULSE 80–121; RESP 15–23; TEMP 36.4–36.6; O2SAT 96–99; BMI 39.5
--- NOTE | 2023-08-06 09:20 | ED.GENADULT ---
HPI - General Adult General Chief complaint: Arrhythmia/Palpitations Stated complaint: afib Time Seen by Provider: 08/06/23 09:20 History of Present Illness HPI narrative: 58-year-old male nonsmoker with history of paroxysmal atrial fibrillation on apixaban presents feeling fatigued with a complaint of being in AFib since yesterday. He states that he has been taking his medications as directed, has missed no doses of anything, most notably his Eliquis in quite some time. He states that historically takes flecainide and metoprolol as prescribed by his green marketer and took an extra metoprolol last night. He states the last time that he required cardioversion was about 10 years ago. He feels palpitations and fatigue but denies any chest pain or shortness of breath. He denies nausea, vomiting or diarrhea. He denies any change in medication regimen or diet. He states that when he is in atrial fibrillation he tends to be quite symptomatic. He states his baseline heart rate is 60. Related Data Home Medications Medication Instructions Recorded Confirmed cetirizine 10 mg tablet 10 mg PO QDAY ##0 12/27/11 06/29/23 omeprazole 40 mg capsule,delayed 40 mg PO QDAY #0 caps 08/04/13 06/29/23 release flecainide 50 mg tablet 50 mg PO BID ##0 06/30/16 06/29/23 apixaban 5 mg tablet (Eliquis) 5 mg PO BID 07/01/21 06/29/23 Previous Rx's Medication Instructions Recorded fenofibrate nanocrystallized 145 145 mg PO BEDTIME #90 tabs 08/17/22 mg tablet atorvastatin 80 mg tablet 80 mg PO BEDTIME #90 tabs 08/20/22 celecoxib 200 mg capsule 200 mg PO DAILY #90 caps 08/20/22 metoprolol tartrate 25 mg tablet 25 mg PO DAILY #90 tabs 08/20/22 pramipexole 0.5 mg tablet 0.5 mg PO BEDTIME #90 tabs 08/20/22 trazodone 100 mg tablet 100 mg PO BEDTIME #90 tabs 08/20/22 venlafaxine 75 mg capsule,extended 225 mg (3 x 75 mg) PO DAILY #270 08/20/22 release 24 hr caps duloxetine 30 mg capsule,delayed 30 mg PO DAILY #90 caps 04/25/23 release sildenafil 100 mg tablet 50 - 100 mg (0.5 - 1 x 100 mg) PO 02/16/23 DAILY PRN sexual activity #10 tabs Allergies Allergy/AdvReac Type Severity Reaction Status Date / Time cefotetan [CEFOTETAN] Allergy Intermediate ITCHING Verified 08/06/23 09:30 Review of Systems Review of Systems Narrative: GENERAL: See HPI HEENT: Denies sinus pain, ear pain, sore throat, difficulty swallowing, dizziness. RESPIRATORY: Denies dyspnea, cough, wheezing, hemoptysis, sputum. CARDIOVASCULAR: See HPI GASTROINTESTINAL: Denies nausea, vomiting, abdominal pain, diarrhea, constipation, melena. : Denies dysuria, frequency, incontinence, hematuria, urinary retention. MUSCULOSKELETAL: denies weakness, joint pain, or bony pain SKIN: Denies rash, skin lesions, or other NEUROLOGIC: Denies weakness, headache, numbness, change in speech, confusion, seizures, incoordination. PSYCHIATRIC: No concerning psychosocial issues. 12 point review of systems is negative except for those stated above Patient History Medical History Acid reflux Arthritis BCC (basal cell carcinoma), chest Cervical spondylosis with radiculopathy Depression (06/02/16) Erectile dysfunction Facet arthropathy, cervical Foraminal stenosis of cervical region Herniated nucleus pulposus, cervical Herniated nucleus pulposus, L3-4 left Herniated nucleus pulposus, L3-4 right History of adenomatous polyp of colon (~2014) History of cardioversion (~2015) HTN (hypertension) Lower back pain Lumbar radiculopathy Mixed hyperlipidemia Paroxysmal atrial fibrillation Radiculopathy of cervical spine Sleep apnea (06/30/16) Transaminitis Type 2 diabetes mellitus Surgical History H/O neck surgery History of vasectomy (10/24/20) Hx of appendectomy S/P epidural steroid injection Family History Father Heart disease Melanoma Sister Heart disease Mother Diabetes mellitus Migraines Social History (Updated 11/02/19 @ 14:31 by Yin Hurd) marital status: household members: spouse and children Smoking Status: Former smoker alcohol intake: former substance use type: does not use Smoking Status: Former smoker Substance Use Type: does not use Exam Narrative Exam Narrative: GENERAL: [58] year old patient appears stated age. Well-developed patient, in mild distress. HEAD: Atraumatic. Normocephalic. EYES: Pupils equal round and reactive. Extraocular motions intact. No scleral icterus. No injection or drainage. ENT: Nose without bleeding, purulent drainage. Throat without erythema, tonsillar hypertrophy or exudate. Airway patent. NECK: Trachea midline. Non tender CARDIOVASCULAR: Tachycardic and irregular in the low 100s without murmurs, gallops, or rubs. RESPIRATORY: Clear to auscultation. Breath sounds equal bilaterally. No wheezes, rales, or rhonchi. GASTROINTESTINAL: Abdomen soft, non-tender, nondistended. EXTREMITIES: No edema or joint tenderness. BACK: Nontender without deformity or crepitance. No flank tenderness. NEURO: AOx3. SKIN: No rash or erythema of visible areas Initial Vital Signs Initial Vital Signs: Vital Signs Temperature 97.6 F 08/06/23 09:27 Pulse Rate 80 08/06/23 09:27 Respiratory Rate 18 08/06/23 09:27 Blood Pressure 145/92 H 08/06/23 09:27 Pulse Oximetry 96 08/06/23 09:27 Oxygen Delivery Method Room Air 08/06/23 09:27 Procedures Cardioversion Consent Signed: Yes Indication: symptomatic AFib Stability: Stable Number of attempts (shocks): 3 Joules used: 120, 150 and 200 Cardiac rhythm post-cardioversion: Afib Procedural Sedation Consent signed: Yes Indication: cardioversion ASA Class: II Mallampati Airway Classification: Class III Preparation: environmental monitoring specialist applied, pulse oximeter, capnometry used, supplemental O2 applied, suction/airway equipment at bedside and IV secured IV Propofol dose (mg): 140 Intraservice time/total sedation time (min): 12 ED Sedation Level: Moderate (Concious) Patient Tolerated Procedure: Well Complications: none Course Orders Ordered: Discontinued Medications Sodium Chloride (Normal Saline 0.9%) 500 mls @ 1,000 mls/hr IV BOLUS ONE Stop: 08/06/23 10:27 Last Infusion: 08/06/23 11:02 Dose: Infused Documented By: Admin: 08/06/23 10:45 Dose: 1,000 mls/hr Documented By: ALANA Propofol (Propofol 200 Mg/20 Ml Vial) 200 mg IV NOW ONE Stop: 08/06/23 09:59 Last Admin: 08/06/23 10:44 Dose: 140 mg Documented By: ALANA Vital Signs Vital signs: Vital Signs - 8 hr 08/06/23 09:27 Temperature 97.6 F Pulse Rate 80 Respiratory Rate 18 Blood Pressure 145/92 H Pulse Oximetry 96 Oxygen Delivery Method Room Air Medical Decision Making Lab Data 08/06/23 09:45 08/06/23 09:45 Labs: Lab Results 08/06/23 Range/Units 09:45 WBC 6.8 (4.5-11.0) X10^3/uL RBC 4.60 (4.5-5.9) X10^6/uL Hgb 13.1 L (13.5-17.5) g/dL Hct 38.3 L (41-53) % MCV 83.3 (80-100) fL MCH 28.4 (26-34) PG MCHC 34.1 (30-36) % RDW 14.2 (11.6-14.8) % Plt Count 258 (150-400) X10^3/uL Neut % (Auto) 53.7 (50-75) % Lymph % (Auto) 35.6 (25-40) % [place] % (Auto) 7.7 (3-14) % Eos % (Auto) 2.3 (2-4) % Baso % (Auto) 0.7 (0-2) % Neut # (Auto) 3600 (3808-2892) /uL Lymph # (Auto) 2400 (1203-6650) /uL [place] # (Auto) 500 (0-900) /uL Eos # (Auto) 200 (0-450) /uL Baso # (Auto) 0 (0-100) /uL PT 14.1 H (10.1-12.7) SECONDS INR 1.2 (0.9-1.3) APTT 34 (26-36) SECONDS Sodium 135 L (137-145) mmol/L Potassium 4.5 (3.4-5.1) mmol/L Chloride 102 (98-107) mmol/L Carbon Dioxide 22 (22-32) mmol/L BUN 21 H (9-20) mg/dL Creatinine 0.78 (0.66-1.25) mg/dL Estimated GFR > 60 (>60) mL/min BUN/Creatinine Ratio 26.9 H (6-22) Glucose 191 H (80-110) mg/dL Calcium 9.5 (8.4-10.2) mg/dL Magnesium 1.7 (1.6-2.3) mg/dL Total Bilirubin 0.4 (0.2-1.3) mg/dL AST 73 H (17-59) IU/L ALT 59 H (<50) IU/L Alkaline Phosphatase 49 (38-126) U/L Total Creatine Kinase 247 H (55-170) U/L Troponin I < 0.012 (0.01-0.034) ng/mL Total Protein 7.7 (6.3-8.2) g/dL Albumin 4.4 (3.5-5.0) g/dL Globulin 3.3 (1.7-4.1) g/dL Albumin/Globulin Ratio 1.3 (1.0-2.8) Lipase 83 (23-300) U/L MDM Narrative Medical decision making narrative: CC: 58-year-old male with palpitations, history of AFib and fatigue Complicating co-morbidities: AFib on anticoagulation Data collected from: Patient Medical records reviewed: Prior notes reviewed in our EMR Differential considered, but not limited to: AFib versus other Exam documented above, pertinent findings include: Awake, alert and oriented, heart rate tachycardic and irregular, nonlabored breathing Lab Test results independently reviewed as above. Pertinent findings: No leukocytosis or left shift, no signs of anemia, primary electrolytes, troponin, magnesium Independently reviewed EKG as above Imaging studies independently reviewed: Chest x-ray without acute findings Consultations: discussed with Dr. Lopez ([facility]). Recommends increasing flecainide to 100 mg in the morning, 50 in the evening. Additionally increasing metoprolol tartrate to 25 mg twice daily and follow-up with his office Treatments: Fluids, procedural sedation with propofol 140 mg, cardioversion syncope at 120, 150, 200 unsuccessful Re-evaluations: Patient unfortunately did not convert with the above-stated attempts. Little change Discussion: Patient with a history of AFib is anticoagulated and presents with about 24 hours of symptomatic AFib. As noted above his baseline heart rate is about 60 and he is found to be in AFib primarily in the 80s and 90s with the occasion to go as high as 105-110. There are no ischemic changes, labs are unremarkable. He was consented and sedated with 3 attempts at cardioversion which were unfortunately unsuccessful. I discussed with the on-call green marketer for his group as noted above. Requested change in the medication regimen relate to the patient, he verbalizes his understanding of the new plan as well as return precautions. He will follow closely with his cardiology group Disposition: see below, along with detailed discharge instructions that have been reviewed with patient as well as indications for ED re-evaluation and additional outpatient follow up Discharge Plan Departure Patient Disposition: Home Clinical Impression: Atrial fibrillation Instructions: DI for Atrial Fibrillation Activity Restrictions/Additional Instructions: *You have been diagnosed with [atrial fibrillation. As we discussed your history and physical exam are reassuring as are your labs. Unfortunately our attempt to cardioversion was unsuccessful. I discussed with your cardiology group and they wanted to make some medication changes that we discussed but are also noted below.] *What to do: *Please increase your Flecainide to 100mg in the morning and 50mg at night. Also increase your Metoprolol to 25mg twice daily. Otherwise, please continue to take your regular medications as directed. [ ] New medication prescriptions sent to your pharmacy: [ ] [ ] New medication written as a paper prescription [ ] No new medications given *Please follow up with your cardiology group early next week, call for an appointment. Let them know you were seen in the Emergency Department and that we ask that you be seen in follow up. We will electronically transmit a record of today's note if possible *Return to Emergency Department if you should have any new, worsening or concerning symptoms, such as [fever greater than 101 F, shaking chills, worsening pain, persistent vomiting or other bothersome symptoms] Prescriptions: No Action cetirizine 10 MG tablet 10 mg PO QDAY Qty: 0 omeprazole 40 MG capsule,delayed release(DR/EC) 40 mg PO QDAY Qty: 0 flecainide 50 MG tablet 50 mg PO BID Qty: 0 fenofibrate nanocrystallized 145 mg tablet 145 mg PO BEDTIME Qty: 90 3RF Eliquis 5 mg tablet 5 mg PO BID Hold Instructions: procedure celecoxib 200 mg capsule 200 mg PO DAILY Qty: 90 3RF Hold Instructions: procedure atorvastatin 80 mg tablet 80 mg PO BEDTIME Qty: 90 3RF venlafaxine 75 mg capsule,extended release 24hr 225 mg PO DAILY Qty: 270 3RF metoprolol tartrate 25 mg tablet 25 mg PO DAILY Qty: 90 3RF pramipexole 0.5 mg tablet 0.5 mg PO BEDTIME Qty: 90 3RF trazodone 100 mg tablet 100 mg PO BEDTIME Qty: 90 3RF duloxetine 30 mg capsule,delayed release(DR/EC) 30 mg PO DAILY Qty: 90 3RF sildenafil 100 mg tablet 50 - 100 mg PO DAILY PRN (Reason: sexual activity) Qty: 10 0RF Rx Instructions: administer 30 minutes to 4 hours before activity Referrals: Cam Lowery MD [Primary Care Provider] - Trenton Anthony MD [Non-Staff] - Stand Alone Forms: Patient Portal/API
--- NOTE | 2023-08-06 09:31 | DI.RAD.S_ITS ---
PROCEDURE: XR CHEST 1V INDICATIONS: chest pain TECHNIQUE: One view of the chest was acquired. COMPARISON: [facility], CHEST 1 VIEW, 08/04/2013, 18:30. [facility], CHEST 2 VIEW, 02/16/2012, 8:49. FINDINGS: Surgical changes and devices: None. Lungs and pleura: Lungs are clear. No pleural effusions or pneumothorax. Mediastinum: Mediastinal contours appear normal. Heart size is normal. Bones and chest wall: No suspicious bony lesions. Overlying soft tissues appear unremarkable. IMPRESSION: Portable chest within normal limits for age. Dictated by: David Garcia M.D. on 08/06/2023 at 10:05 Approved by: David Garcia M.D. on 08/06/2023 at 10:06
[2023-08-06 09:59] LABS: Add Manual Diff / Slide Review NO; Basophils Absolute Auto 0 /uL (0-100); Basophils Percent Auto 0.7 % (0-2); Eosinophils Absolute Auto 200 /uL (0-450); Eosinophils Percent Auto 2.3 % (2-4); Hematocrit 38.3 % (41-53); Hemoglobin 13.1 g/dL (13.5-17.5); Lymphocytes Absolute Auto 2400 /uL (1100-4500); Lymphocytes Percent Auto 35.6 % (25-40); Mean Corpuscular HGB Conc 34.1 % (30-36); Mean Corpuscular Hemoglobin 28.4 PG (26-34); Mean Corpuscular Volume 83.3 fL (80-100); Monocytes Absolute Auto 500 /uL (0-900); Monocytes Percent Auto 7.7 % (3-14); Neutrophils Absolute Auto 3600 /uL (1500-7000); Neutrophils Percent Auto 53.7 % (50-75); Platelet Count 258 X10^3/uL (150-400); Red Cell Distribution Width 14.2 % (11.6-14.8); White Blood Cell Count 6.8 X10^3/uL (4.5-11.0)
[2023-08-06 10:05] LABS: INR 1.2 (0.9-1.3); Prothrombin Time 14.1 SECONDS (10.1-12.7)
[2023-08-06 10:07] LABS: PTT Partial Thromboplastin Tim 34 SECONDS (26-36)
[2023-08-06 10:11] LABS: Alanine Aminotransferase 59 IU/L (<50); Albumin 4.4 g/dL (3.5-5.0); Albumin Globulin Ratio 1.3 (1.0-2.8); Alkaline Phosphatase 49 U/L (38-126); Aspartate Aminotransferase 73 IU/L (17-59); BUN Creatinine Ratio 26.9 (6-22); Bilirubin Total 0.4 mg/dL (0.2-1.3); Blood Urea Nitrogen 21 mg/dL (9-20); Calcium 9.5 mg/dL (8.4-10.2); Carbon Dioxide 22 mmol/L (22-32); Chloride 102 mmol/L (98-107); Creatine Kinase 247 U/L (55-170); Estimated Glomerular Filt Rate > 60 mL/min (>60); Globulin 3.3 g/dL (1.7-4.1); Glucose 191 mg/dL (80-110); HEMOLYSIS 29 (0-50); Lipase 83 U/L (23-300); Magnesium 1.7 mg/dL (1.6-2.3); Potassium 4.5 mmol/L (3.4-5.1); Sodium 135 mmol/L (137-145); Total Protein 7.7 g/dL (6.3-8.2)
[2023-08-06 10:22] LABS: Troponin I < 0.012 ng/mL (0.01-0.034)
--- NOTE | 2023-08-06 10:42 | RT ---
At bedside for PRS, Cardioversion. Bag mask unit with suction at bedside on and functional. Etco2 placed, no distress noted and pt louise well. Pt [id number] to questions and released by Nery SCHILLING. All rales up
[2023-08-06] MEDS: propofoL 200 MG/20 ML VIAL IV (10:44)
[2023-08-06] MEDS: SODIUM CHLORIDE 0.9% 500 ML 1000 ML IV (10:45)
== END 2023-08-06 11:50 | disposition home or self-care (01) ==
PROVIDERS: Emergency Provider Emergency Medicine; PCP Internal Medicine
DX: I48.0 Paroxysmal atrial fibrillation (principal); Z79.01 Long term (current) use of anticoagulants
CPT/HCPCS: 36415; 71045; 80053; 82550; 83690; 83735; 84484; 85025; 85610; 85730; 92960; 93005; 99152; 99285; J2704

== ENCOUNTER → 2023-11-01 06:45 | Outpatient (CLI) | payer OTHER, SELFPAY ==
[2021-09-02 12:39] VITALS: BMI 39.6
[2023-11-01 08:22] LABS: Hemoglobin A1C% w Est Avg Glu 7.5 % (4.0-6.0)
[2023-11-01 08:39] LABS: Alanine Aminotransferase 64 IU/L (<50); Albumin 4.1 g/dL (3.5-5.0); Albumin Globulin Ratio 1.3 (1.0-2.8); Alkaline Phosphatase 57 U/L (38-126); Aspartate Aminotransferase 62 IU/L (17-59); BUN Creatinine Ratio 28.2 (6-22); Bilirubin Total 0.6 mg/dL (0.2-1.3); Blood Urea Nitrogen 24 mg/dL (9-20); Calcium 9.6 mg/dL (8.4-10.2); Carbon Dioxide 25 mmol/L (22-32); Chloride 100 mmol/L (98-107); Cholesterol 163 mg/dL (140-199); Estimated Glomerular Filt Rate > 60 mL/min (>60); Globulin 3.1 g/dL (1.7-4.1); Glucose 162 mg/dL (80-110); HDL Cholesterol 32 mg/dL (40-60); HEMOLYSIS < 15 (0-50); Potassium 4.3 mmol/L (3.4-5.1); Sodium 136 mmol/L (137-145); Total Protein 7.2 g/dL (6.3-8.2); Triglycerides 419 mg/dL (35-150)
== END ==
LOC: LAB 06:45
PROVIDERS: PCP Internal Medicine; Referring Provider Internal Medicine; Visit Provider Internal Medicine
DX: E78.2 Mixed hyperlipidemia (principal); E11.9 Type 2 diabetes mellitus without complications
CPT/HCPCS: 36415; 80053; 80061; 83036

== ENCOUNTER → 2024-01-13 17:18 | Outpatient (CLI) | payer OTHER, SELFPAY ==
[2021-09-02 12:39] VITALS: BMI 39.6
[2024-01-13 18:03] LABS: BUN Creatinine Ratio 26.5 (6-22); Blood Urea Nitrogen 22 mg/dL (9-20); Carbon Dioxide 22 mmol/L (22-32); Chloride 108 mmol/L (98-107); Estimated Glomerular Filt Rate > 60 mL/min (>60); Glucose 100 mg/dL (80-110); HEMOLYSIS 21 (0-50); Potassium 4.3 mmol/L (3.4-5.1); Sodium 137 mmol/L (137-145)
== END ==
PROVIDERS: PCP Student in an Organized Health Care Education/Training Program; Referring Provider Nurse Practitioner; Visit Provider Nurse Practitioner
DX: I48.0 Paroxysmal atrial fibrillation (principal); I10 Essential (primary) hypertension
CPT/HCPCS: 36415; 80048

== ENCOUNTER → 2024-01-26 06:42 | Outpatient (CLI) | payer OTHER, SELFPAY ==
[2021-09-02 12:39] VITALS: BMI 39.6
[2024-01-26 08:14] LABS: Hemoglobin A1C% w Est Avg Glu 6.3 % (4.0-6.0)
[2024-01-26 08:25] LABS: Creatinine Urine Random 319.6 mg/dL
[2024-01-26 08:29] LABS: Microalbumi Creatinin Ratio Ur 2.1 ug/mg CR (<30); Microalbumin Urine Random 0.7 mg/dL (0-1.6)
[2024-01-26 08:33] LABS: BUN Creatinine Ratio 21.3 (6-22); Blood Urea Nitrogen 19 mg/dL (9-20); Calcium 9.6 mg/dL (8.4-10.2); Carbon Dioxide 25 mmol/L (22-32); Chloride 107 mmol/L (98-107); Estimated Glomerular Filt Rate > 60 mL/min (>60); Glucose 127 mg/dL (80-110); HEMOLYSIS < 15 (0-50); Potassium 4.4 mmol/L (3.4-5.1); Sodium 139 mmol/L (137-145)
== END ==
PROVIDERS: PCP Student in an Organized Health Care Education/Training Program; Referring Provider Internal Medicine; Visit Provider Internal Medicine
DX: E11.9 Type 2 diabetes mellitus without complications (principal)
CPT/HCPCS: 36415; 80048; 82043; 82570; 83036

== ENCOUNTER 2024-04-04 06:45 | Outpatient (CLI) | payer OTHER, SELFPAY ==
[2024-02-29 11:49] VITALS: BMI 39.6
[2024-04-04] VITALS (10 sets, daily range): BP systolic 127–134; BP diastolic 68–86; PULSE 64–97; RESP 14–23; O2SAT 97–100
--- NOTE | 2024-04-04 09:15 | DI.RAD.S_ITS ---
PROCEDURE: PAIN C/T INTERLAMINAR INJECT INDICATIONS: C6-7 translaminar HANNA COMPARISON: [facility], , PAIN C/T INTERLAMINAR INJECT, 04/22/2023, 9:09. FINDINGS: Fluoroscopic spot filming was performed to verify placement of spinal needles at the C6-7 level(s), as labeled on the films. Appropriate location(s) of the needle tip(s) was confirmed by injection of iodinated contrast. IMPRESSION: Fluoroscopic guidance utilized for an epidural injection at C6-7. Dictated by: Ashwin Laurent M.D. on 04/04/2024 at 10:51 Approved by: Ashwin Laurent M.D. on 04/04/2024 at 10:52
[2024-04-04] MEDS: MIDAZOLAM 2 MG/2 ML VIAL IV (09:22)
[2024-04-04] MEDS: iopamidoL 15 ML VIAL 3 ML INJ (09:25)
[2024-04-04] MEDS: DEXAMETHASONE 10 MG/ML VIAL 20 MG INJ (09:25)
[2024-04-04] MEDS: BUPIVACAINE 0.25% (PF) VIAL 2 ML INJ (09:25)
--- NOTE | 2024-04-04 09:38 | PM.PROC.IR.1 ---
Date/Time/Diagnoses Date of procedure: 04/04/24 Time of procedure: 09:38 Pre-procedure diagnosis: 1. CERVICAL STENOSIS, 2. CERVICAL HNP WITH UPPER EXTREMITY RADICULAR FEATURES Post-procedure diagnosis: same Procedure Notes Procedure: 1. FLUORSCOPICALLY GUIDED CONTRAST CONTROLLED INTERLAMINAR EPIDURAL STEROID INJECTION - C6/7 TL HANNA Indications: Henry is referred by Dr. Pride for treatment of Cervical HNP with Upper Extremity Paresthesias. Physician: Stephan Barragan Total Fluoroscopy time (seconds): 23 Total sedation minutes: 11 Complications: none Procedure in detail & Post-procedure care: FINDINGS Cervical Stenosis due to disc deterioration and nerve root irritation and nerve root irritation DESCRIPTION OF PROCEDURE Fluoroscopically guided, contrast-controlled C6/7 translaminar epidural steroid injection with conscious sedation. Following review of allergy and review of potential side effects and complications, including, but not necessarily limited to, infection, allergic reaction, local tissue breakdown, temporary as well as permanent nerve injury, stroke, paralysis, and possible , the patient indicated that patient understood and agreed to proceed. An informed consent document was signed by the patient, witnessed by a nurse, and placed in the patient's chart. Additionally, other treatment options including modalities, medications, and physical therapy were reviewed with the patient. After review of previous anaesthesic history and IV conscious sedation the patient was deemed safe to proceed with today?s procedure with IV conscious sedation as ASA class II designation. Safety time-out was performed to confirm patient ID, procedure to be performed and site of procedure. IV sedation was accomplished with a combination of 2mg of Versed administered by the RN after DO order, titrated to patient comfort during the course of the procedure while the patient remained responsive to all verbal commands. In the prone position, following sterile prep and drape of the cervical region, the C6/7 translaminar space was identified fluoroscopically. The skin was anesthetized via a 25-gauge 1.5-inch needle with 1% lidocaine solution. At this point, a 25-gauge, 2.5-inch short bevel spinal needle was atraumatically introduced and advanced under fluoroscopic guidance into epidural space at the C6/7 translaminar space. Depth was confirmed on lateral view. Radiological data, including multiple fluoroscopic views of the cervical spine, reveal a spinal needle at the C6/7 translaminar space. Lateral views then show placement of the needle in the epidural space. Subsequent views show contrast material flowing superiorly and inferiorly in the epidural space. DSA fluoroscopy with live contrast injection, once again, confirmed no vascular or intrathecal uptake. At this point, using loss of resistance technique with saline and air, the epidural space was entered. Following negative aspiration, injection of approximately 1.5 cc of Isovue-200 with live fluoroscopy in the AP view confirmed epidural flow in the epidural space without vascular or intrathecal uptake observed. Subsequently, a test dose of 1 cc of 1% lidocaine solution was injected and patient was observed for two minutes without signs or symptoms of complications, including abdominal pain, shortness of breath, bilateral upper or lower extremity weakness, nausea and vomiting, prior to steroid injection. At this point, 2cc or 20mg of dexamethasone was then injected without incident. The patient tolerated the procedure well without signs or symptoms of complications prior to being transferred to the recovery area for further monitoring, The patient was then transferred to the recovery area where they were observed for an appropriate period of time after the injection. The patient reported a VAS score of 6 prior to the procedure and a post-procedure VAS of 0. POST OP INSTRUCTIONS The patient was provided a Pain Log to continue to record their response to the target-specific procedure prior to follow-up visit with the referring provider. Additionally, specific post-injection care instructions and a contact number to our office were provided if concerns arise regarding possible complications associated with the procedure are suspected.
== END 2024-04-04 10:30 | disposition home or self-care (01) ==
PROVIDERS: PCP Student in an Organized Health Care Education/Training Program; Referring Provider Physical Medicine & Rehabilitation; Visit Provider Physical Medicine & Rehabilitation
DX: M48.02 Spinal stenosis, cervical region (principal); M50.123 Cervical disc disorder at C6-C7 level with radiculopathy; M47.22 Other spondylosis with radiculopathy, cervical region
CPT/HCPCS: 62321; 93005; 93010; 99152; J1100; J2250; J3490

== ENCOUNTER → 2024-05-01 06:55 | Outpatient (CLI) | payer OTHER, SELFPAY ==
[2024-02-29 11:49] VITALS: BMI 39.6
[2024-05-01 08:24] LABS: Hemoglobin A1C% w Est Avg Glu 5.8 % (4.0-6.0)
[2024-05-01 08:28] LABS: Alanine Aminotransferase 29 IU/L (<50); Albumin 4.1 g/dL (3.5-5.0); Albumin Globulin Ratio 1.5 (1.0-2.8); Alkaline Phosphatase 41 U/L (38-126); Aspartate Aminotransferase 33 IU/L (17-59); BUN Creatinine Ratio 30.4 (6-22); Bilirubin Total 0.4 mg/dL (0.2-1.3); Blood Urea Nitrogen 31 mg/dL (9-20); Calcium 8.8 mg/dL (8.4-10.2); Carbon Dioxide 25 mmol/L (22-32); Chloride 107 mmol/L (98-107); Cholesterol 150 mg/dL (140-199); Estimated Glomerular Filt Rate > 60 mL/min (>60); Globulin 2.8 g/dL (1.7-4.1); Glucose 113 mg/dL (80-110); HDL Cholesterol 43 mg/dL (40-60); HEMOLYSIS < 15 (0-50); LDL Cholesterol Calculated 74 mg/dL (<100); Potassium 4.5 mmol/L (3.4-5.1); Sodium 139 mmol/L (137-145); Total Protein 6.9 g/dL (6.3-8.2); Triglycerides 166 mg/dL (35-150)
== END ==
LOC: LAB 06:56
PROVIDERS: PCP Student in an Organized Health Care Education/Training Program; Referring Provider Student in an Organized Health Care Education/Training Program; Visit Provider Student in an Organized Health Care Education/Training Program
DX: E11.9 Type 2 diabetes mellitus without complications (principal); E78.2 Mixed hyperlipidemia; E66.9 Obesity, unspecified
CPT/HCPCS: 36415; 80053; 80061; 83036

== ENCOUNTER 2024-10-14 16:07 | Observation (INO) | payer OTHER, SELFPAY ==
[2024-02-29 11:49] VITALS: BMI 39.6
[2024-10-14] VITALS (13 sets, daily range): BP systolic 124–157; BP diastolic 68–85; PULSE 64–77; RESP 16–23; TEMP 36–37.1; O2SAT 95–99; BMI 34.4
--- NOTE | 2024-10-14 16:20 | DI.RAD.S_ITS ---
PROCEDURE: XR CHEST 1V INDICATIONS: chest pain TECHNIQUE: One view of the chest was acquired. COMPARISON: [facility], CR, XR CHEST 1V, 08/06/2023, 9:31. FINDINGS: Surgical changes and devices: Lower cervical spine fixation hardware is partially seen. Lungs and pleura: An incomplete inspiratory result is noted, causing a crowded appearance to the lung markings. No focal infiltrates are seen. No pneumothorax or significant pleural effusions are seen. Mediastinum: Mediastinal contours appear normal. Heart size is normal. Bones and chest wall: No suspicious bony lesions. Age-appropriate bony degenerative changes are seen. Overlying soft tissues appear unremarkable. IMPRESSION: Low lung volumes, without an acute abnormality seen by plain film. Dictated by: Camacho Pineda M.D. on 10/14/2024 at 16:39 Approved by: Camacho Pineda M.D. on 10/14/2024 at 16:39
--- NOTE | 2024-10-14 16:24 | EKG_ITS ---
[address] [address] Test Date: 2024-10-14 Pat Name: Henry Spann Department: Room: Gender: Male Nurse Outreach Case Manager: SAM : [id number] Requested By: Order Number: [id number] Reading MD: Krystian Lucas Measurements Intervals [place] Rate: 70 P: 35 VA: 198 QRS: 14 QRSD: 90 T: 41 QT: 376 QTc: 406 Interpretive Statements Normal sinus rhythm Electronically Signed On 10-16-2024 11:13:32 PST by Krystian Lucas
[2024-10-14 16:43] LABS: Add Manual Diff / Slide Review NO; Basophils Absolute Auto 100 /uL (0-100); Basophils Percent Auto 0.8 % (0-2); Eosinophils Absolute Auto 100 /uL (0-450); Eosinophils Percent Auto 1.5 % (2-4); Hematocrit 40.5 % (41-53); Hemoglobin 13.3 g/dL (13.5-17.5); Lymphocytes Absolute Auto 3000 /uL (1100-4500); Mean Corpuscular HGB Conc 32.8 % (30-36); Mean Corpuscular Hemoglobin 28.6 PG (26-34); Mean Corpuscular Volume 87.1 fL (80-100); Monocytes Absolute Auto 600 /uL (0-900); Monocytes Percent Auto 6.8 % (3-14); Neutrophils Absolute Auto 4700 /uL (1500-7000); Neutrophils Percent Auto 55.9 % (50-75); Platelet Count 282 X10^3/uL (150-400); Red Blood Cell Count 4.65 X10^6/uL (4.5-5.9); Red Cell Distribution Width 14.6 % (11.6-14.8); White Blood Cell Count 8.5 X10^3/uL (4.5-11.0)
[2024-10-14 16:46] LABS: Alanine Aminotransferase 55 IU/L (<50); Albumin 4.3 g/dL (3.5-5.0); Albumin Globulin Ratio 1.4 (1.0-2.8); Alkaline Phosphatase 42 U/L (38-126); Aspartate Aminotransferase 50 IU/L (17-59); BUN Creatinine Ratio 13.6 (6-22); Bilirubin Total 0.3 mg/dL (0.2-1.3); Blood Urea Nitrogen 15 mg/dL (9-20); Calcium 9.2 mg/dL (8.4-10.2); Carbon Dioxide 24 mmol/L (22-32); Chloride 107 mmol/L (98-107); Creatine Kinase 134 U/L (55-170); Estimated Glomerular Filt Rate > 60 mL/min (>60); Globulin 3.1 g/dL (1.7-4.1); Glucose 95 mg/dL (80-110); HEMOLYSIS < 15 (0-50); Lipase 205 U/L (23-300); Magnesium 1.8 mg/dL (1.6-2.3); Potassium 4.4 mmol/L (3.4-5.1); Sodium 137 mmol/L (137-145); Total Protein 7.4 g/dL (6.3-8.2)
[2024-10-14 16:58] LABS: NT-proBNP (BNP-Adult 18+) < 20 pg/mL (<125); Troponin I < 0.012 ng/mL (0.01-0.034)
[2024-10-14 17:14] LABS: INR 1.1 (0.9-1.3); Prothrombin Time 12.5 SECONDS (9.4-12.5)
[2024-10-14 17:16] LABS: PTT Partial Thromboplastin Tim 37 SECONDS (25.1-36.5)
--- NOTE | 2024-10-14 19:03 | ED_ITS ---
HPI - Chest Pain General Chief Complaint: Chest Pain Stated Complaint: heart problems t-1 Time Seen by Provider: 10/14/24 17:50 Source: patient Mode of arrival: Ambulatory Limitations: no limitations History of Present Illness HPI narrative: Patient is a 59-year-old male history of atrial fibrillation on Eliquis and flecainide, type 2 diabetes presenting today with left arm pain that sometimes radiates up to his jaw. He does have some increasing shortness of breath with exertion has been going on for a couple of weeks. However the left arm discomfort started yesterday. He occasionally has some numbness tingling in both hands and feet. No significant swelling of the legs. No cough or fever. He reports that the left arm pain lasts for about an hour not necessarily associated with exertion. It has not reproducible with palpation or movement. It spontaneously resolved. He also reports that he has been waking up spontaneously at night with a racing heart. He is currently in a sinus rhythm. Related Data Home Medications Medication Instructions Recorded Confirmed cetirizine 10 mg tablet 10 mg PO QDAY ##0 12/27/11 10/14/24 omeprazole 40 mg capsule,delayed 40 mg PO QDAY #0 caps 08/04/13 10/14/24 release flecainide 50 mg tablet 50 mg PO BID ##0 06/30/16 10/14/24 apixaban 5 mg tablet (Eliquis) 5 mg PO BID 07/01/21 10/14/24 lisinopril 5 mg tablet 5 mg PO DAILY 05/31/24 10/14/24 Previous Rx's Medication Instructions Recorded sildenafil 100 mg tablet 50 - 100 mg (0.5 - 1 x 100 mg) PO 02/16/23 DAILY PRN sexual activity #10 tabs metformin 500 mg tablet 500 mg PO DAILY #30 tabs 07/17/24 metoprolol tartrate 25 mg tablet 25 mg PO DAILY #90 tabs 08/04/24 trazodone 100 mg tablet 100 mg PO ONCE PM #90 tabs 08/04/24 pramipexole 0.5 mg tablet 0.5 mg PO BEDTIME #90 tabs 08/10/24 semaglutide 2 mg/dose (8 mg/3 mL) 0.6667 mg (0.25 mL) SUBCUT QWEEK 08/17/24 subcutaneous pen injector (Ozempic) #3 mL atorvastatin 80 mg tablet 80 mg PO BEDTIME #90 tabs 09/11/24 venlafaxine 75 mg capsule,extended 225 mg (3 x 75 mg) PO DAILY #270 09/11/24 release 24 hr caps celecoxib 200 mg capsule 200 mg PO DAILY #90 caps 10/01/24 duloxetine 30 mg capsule,delayed 30 mg PO DAILY #90 caps 10/12/24 release Allergies Allergy/AdvReac Type Severity Reaction Status Date / Time cefotetan [CEFOTETAN] Allergy Intermediate ITCHING Verified 09/06/24 14:15 Patient History Medical History Obesity (BMI 30-39.9) Herniated nucleus pulposus, L3-4 right Herniated nucleus pulposus, L3-4 left Erectile dysfunction Transaminitis Lumbar radiculopathy Lower back pain History of adenomatous polyp of colon (~2014) Paroxysmal atrial fibrillation Type 2 diabetes mellitus HTN (hypertension) BCC (basal cell carcinoma), chest Arthritis Acid reflux History of cardioversion (~2015) Foraminal stenosis of cervical region Mixed hyperlipidemia Facet arthropathy, cervical Radiculopathy of cervical spine Cervical spondylosis with radiculopathy Herniated nucleus pulposus, cervical Sleep apnea (06/30/16) Depression (06/02/16) Surgical History H/O neck surgery History of vasectomy (10/24/20) S/P epidural steroid injection Hx of appendectomy Family History Father Heart disease Melanoma Sister Heart disease Mother Diabetes mellitus Migraines Social History marital status: household members: spouse and children Smoking Status: Former smoker alcohol intake: former substance use type: does not use Smoking Status: Former smoker alcohol intake frequency: 0-2 drinks per day Exam Initial Vital Signs Initial Vital Signs: Vital Signs Temperature 98.8 F 10/14/24 16:15 Pulse Rate 73 10/14/24 16:15 Respiratory Rate 18 10/14/24 16:15 Blood Pressure 145/78 H 10/14/24 16:15 Pulse Oximetry 98 10/14/24 16:15 Oxygen Delivery Method Room Air 10/14/24 16:15 GENERAL: Alert pleasant well-appearing 59-year-old male and in [no acute] distress. HEENT: Head atraumatic,EOMI, pupils reactive, face symmetric, [moist] mucous membranes CARDIOVASCULAR: Regular rate and rhythm without murmurs, rubs or gallops. RESPIRATORY: Breath sounds equal bilaterally, no wheezes rales or rhonchi. ABDOMEN: Soft, nontender. Normoactive bowel sounds all 4 quadrants. No guarding or rebound. EXTREMITIES: Normal range of motion, no clubbing or edema. Neurovascularly intact NEUROLOGICAL: Alert and oriented x4.Normal gait and speech. Cranial nerves II through XII grossly intact. SKIN: Warm, dry, no laceration, no petechiae, no rashes or lesions. Scores HEART Score Heart Score history: Highly Suspicious Heart Score EKG: Normal Heart Score Age: 45-64 years old Heart Score risk factors: > 3 risk factors or hx of atherosclerotic disease Heart Score troponin: < or = to normal limit Heart Score Total: 5 Course Orders Ordered: ED Orders 10/14/24 19:24 Trop I [Troponin I] Stat Acetaminophen (Acetaminophen 325 Mg Tablet) 650 mg PO Q6H PRN PRN Reason: Fever/Mild Pain (1-3) Apixaban (Apixaban 5 Mg Tablet) 5 mg PO BID [facility] Atorvastatin Calcium (Atorvastatin 20 Mg Tablet) 80 mg PO BEDTIME [facility] Fenofibrate (Fenofibrate, Micronized 67 Mg Capsule) 201 mg PO BEDTIME [facility] Flecainide Acetate (Flecainide 100 Mg Tablet) 50 mg PO BID [facility] Dextrose (D10w) 100 mls @ 1,200 mls/hr IV PRN PRN PRN Reason: Hypoglycemia Insulin Human Lispro (Insulin Lispro 100 Unit/Ml 3ml Vial) 0 unit SUBCUT ACHS [facility]; Protocol Lisinopril (Lisinopril 5 Mg Tablet) 5 mg PO DAILY [facility] Metformin HCl (Metformin Hcl 500 Mg Tablet) 500 mg PO DAILY [facility] Metoprolol Tartrate (Metoprolol Ir 25 Mg Tablet) 25 mg PO DAILY [facility] Naloxone HCl (Naloxone 0.4 Mg/Ml Vial) 0.2 mg IV Q2MIN PRN PRN Reason: Opiate Reversal Oxycodone HCl (Oxycodone Ir 5 Mg Tablet) 5 mg PO Q3H PRN PRN Reason: Pain, Moderate (4-6) Pantoprazole Sodium (Pantoprazole Dr 40 Mg Tablet) 40 mg PO 0600 [facility] Pramipexole Dihydrochloride (Pramipexole 0.25 Mg Tablet) 0.5 mg PO BEDTIME [facility] Last Admin: 10/14/24 22:46 Dose: 0.5 mg Documented By: WB Venlafaxine HCl (Venlafaxine Er 75 Mg Cap) 225 mg PO DAILY [facility] Discontinued Medications Aspirin (Aspirin 81 Mg Chew Tab) 324 mg PO NOW ONE Stop: 10/14/24 16:21 Last Admin: 10/14/24 20:53 Dose: 324 mg Documented By: BS Vital Signs Vital signs: Vital Signs - 8 hr 10/14/24 20:30 10/14/24 20:30 Pulse Rate 64 Respiratory Rate 16 Blood Pressure 139/80 Pulse Oximetry 96 MDM - Chest Pain Lab Data 10/14/24 16:28 10/14/24 16:28 Labs: Lab Results 10/14/24 10/14/24 Range/Units 16:28 19:24 WBC 8.5 (4.5-11.0) X10^3/uL RBC 4.65 (4.5-5.9) X10^6/uL Hgb 13.3 L (13.5-17.5) g/dL Hct 40.5 L (41-53) % MCV 87.1 (80-100) fL MCH 28.6 (26-34) PG MCHC 32.8 (30-36) % RDW 14.6 (11.6-14.8) % Plt Count 282 (150-400) X10^3/uL Neut % (Auto) 55.9 (50-75) % Lymph % (Auto) 35.0 (25-40) % [place] % (Auto) 6.8 (3-14) % Eos % (Auto) 1.5 L (2-4) % Baso % (Auto) 0.8 (0-2) % Neut # (Auto) 4700 (1192-2186) /uL Lymph # (Auto) 3000 (6744-6384) /uL [place] # (Auto) 600 (0-900) /uL Eos # (Auto) 100 (0-450) /uL Baso # (Auto) 100 (0-100) /uL PT 12.5 (9.4-12.5) SECONDS INR 1.1 (0.9-1.3) APTT 37 H (25.1-36.5) SECONDS Sodium 137 (137-145) mmol/L Potassium 4.4 (3.4-5.1) mmol/L Chloride 107 (98-107) mmol/L Carbon Dioxide 24 (22-32) mmol/L BUN 15 (9-20) mg/dL Creatinine 1.10 (0.66-1.25) mg/dL Estimated GFR > 60 (>60) mL/min BUN/Creatinine Ratio 13.6 (6-22) Glucose 95 (80-110) mg/dL Calcium 9.2 (8.4-10.2) mg/dL Magnesium 1.8 (1.6-2.3) mg/dL Total Bilirubin 0.3 (0.2-1.3) mg/dL AST 50 (17-59) IU/L ALT 55 H (<50) IU/L Alkaline Phosphatase 42 (38-126) U/L Total Creatine Kinase 134 (55-170) U/L Troponin I < 0.012 < 0.012 (0.01-0.034) ng/mL NT-Pro-B Natriuret Pep < 20 (<125) pg/mL Total Protein 7.4 (6.3-8.2) g/dL Albumin 4.3 (3.5-5.0) g/dL Globulin 3.1 (1.7-4.1) g/dL Albumin/Globulin Ratio 1.4 (1.0-2.8) Lipase 205 (23-300) U/L Urine Dip Bedside Urine Glucose Negative Bedside Urine Bilirubin - Negative Bedside Urine Ketone - Negative Urine Specific [place] 1.02 Bedside Urine Occult Blood - Negative Bedside Urine pH 6.0 Bedside Urine Protein - Negative Bedside Urine Urobilinogen - Negative Bedside Urine Nitrite - Negative Bedside Urine Leukocytes - Negative Esterase Imaging Data Chest x-ray: Radiologist's Impression: PROCEDURE: XR CHEST 1V INDICATIONS: chest pain TECHNIQUE: One view of the chest was acquired. COMPARISON: [facility], , XR CHEST 1V, 08/06/2023, 9:31. FINDINGS: Surgical changes and devices: Lower cervical spine fixation hardware is partially seen. Lungs and pleura: An incomplete inspiratory result is noted, causing a crowded appearance to the lung markings. No focal infiltrates are seen. No pneumothorax or significant pleural effusions are seen. Mediastinum: Mediastinal contours appear normal. Heart size is normal. Bones and chest wall: No suspicious bony lesions. Age-appropriate bony degenerative changes are seen. Overlying soft tissues appear unremarkable. IMPRESSION: Low lung volumes, without an acute abnormality seen by plain film. Dictated by: Camacho Pineda M.D. on 10/14/2024 at 16:39 ECG Data Attestation: I personally reviewed and interpreted this ECG as follows: Prior ECG tracings: available for review Interpretation: Normal sinus rhythm rate 70 CA interval 198 QRS [address] changes similar to previous EKGs in March of 2020 MDM Narrative Medical decision making narrative: MDM CC: Chest pain Complicating co-morbidities: Atrial fibrillation on Eliquis type 2 diabetes, hyperlipidemia, hypertension Medical records reviewed: PCP note from April 2024 Differential considered: Acute coronary syndrome Exam documented above, pertinent findings include: Alert well-appearing 59-year-old male no significant peripheral edema Lab Test results independently reviewed as above. Pertinent findings: Troponin negative times BNP less than 20 Electrolytes and creatinine function within normal limits No leukocytosis or anemia Independently reviewed EKG as above no ischemic change Imaging studies independently reviewed: Chest x-ray negative for acute cardiopulmonary process Consultations: Dr. Lopez accepts to Observation Treatments: asa Re-evaluations: Patient no longer having chest pain. Discussion: Patient is 59-year-old male with significant risk factors presenting today with some left arm pain that radiates into his jaw sometimes. He is also noted some increasing shortness of breath with exertion. Workup in the ED is negative however he has a high-risk heart score. He is well aware that he may not get a stress test for a couple of days. He is followed by cardiology in [place], reports that he had a stress test 10 years ago and then he had another a few years back but it was not a good study. Discharge Plan Departure Patient Disposition: Admitted as Observation Clinical Impression: Chest pain Admit Date/Time: 10/14/24 20:55 Admit Provider: Pavel Rivera
[2024-10-14 20:07] LABS: Troponin I < 0.012 ng/mL (0.01-0.034)
[2024-10-14] MEDS: ASPIRIN 81 MG CHEW TAB 324 MG PO (20:53)
--- NOTE | 2024-10-14 21:31 | DI.ECHO.S_ITS ---
[facility] : : [id number] : [place] : : [id number] : : Phone: [phone] Echocardiogram Report + :Name: ALBERT BAINS Study Date: 10/15/2024 Height: 80 in : :[facility] ReadingLocation: Weight: 313 lb : : Gender: Male BSA: 2.8 m2 : :: 1965 Age: 59 yrs BP: 147/77 mmHg: :Reason For Study: CHEST PAIN : :Ordering Physician: LIZBETH : :MARKO APARICIO Performed By: Dimitri Thayer : :Referring: MARKO CLINE : + Interpretation Summary This is a somewhat technically difficult study characterized by limited endocardial visualization on parasternal view. It was enhanced with Definity echo contrast. Normal sinus rhythm. Normal LV size and wall thickness. There is subtle distal anterior and apical hypokinesis. Otherwise normal wall motion.. Ejection fraction 60-65%. Stage I diastolic dysfunction. Normal chamber sizes. Aortic sclerosis without stenosis. Otherwise no significant valvular abnormalities. Mildly dilated aortic root measuring 4 cm. Mildly dilated ascending aorta measuring 4 cm. Compared to prior echocardiogram obtained January 21, 2018, sinus bradycardia is no longer present. Focal wall motion abnormalities involving the apex are new. Procedure: A two-dimensional transthoracic echocardiogram with color flow and Doppler was performed. A contrast injection of Definity was performed to improve assessment of LV function. The study quality was technically difficult. Comparison is made with the echocardiogram of 01/21/2018. The patient was in normal sinus rhythm during the exam. Left Ventricle: The left ventricle is normal in size. Left ventricular wall thickness is mildly increased. There is no ventricular septal defect visualized. The ejection fraction is estimated to be 60-65%. Right Ventricle: The right ventricle is normal in size and function. Atria: The left atrial size is normal. Right atrial size is normal. There is no Doppler evidence for an interatrial shunt. Mitral Valve: The mitral valve leaflets appear normal. There is no evidence of stenosis, fluttering, or prolapse. There is trace mitral regurgitation. Aortic Valve: The aortic valve is trileaflet. The aortic valve is mildly calcified. There is mild aortic regurgitation. Tricuspid Valve: The tricuspid valve leaflets are thin and pliable. No tricuspid regurgitation. Pulmonic Valve: The pulmonic valve is not well seen, but is grossly normal. There is no pulmonic valvular regurgitation. Great Vessels: The aortic root is mildly dilated. The ascending aorta is mildly enlarged. The pulmonary artery is normal size. The IVC is of normal diameter and collapses greater than 50% with a sniff. This suggests a low right atrial pressure of 3 mm Hg. Pericardium/ Pleura There is no pericardial effusion. There is no pleural effusion. MMode/2D Measurements & Calculations LVIDd: 4.8 cm LVOT diam: 2.5 cm LVIDs: 3.1 cm Ao root diam: 4.0 cm FS: 35.3 % asc Aorta Diam: 4.0 cm EPSS: 0.58 cm Ao Arch Diam (Prox Trans): 2.6 cm IVSd: 1.3 cm LVPWd: 1.2 cm LV blanca. diameter/BSA (cm/m^2): 1.7 LV sys. diameter/BSA (cm/m^2): 1.1 LA A2 area: 18.9 cm2 RA long axis: 3.5 cm LA A4 area: 21.4 cm2 RA area: 9.3 cm2 LA length (vol): 6.3 cm RA vol: 20.7 ml LA vol: 54.3 ml RA : 7.4 ml/m2 LA vol index: 19.5 ml/m2 IVC diam: 2.0 cm RVD1 (basal): 3.2 cm RVD2 (mid): 2.6 cm TAPSE: 2.3 cm Doppler Measurements & Calculations Ao V2 max: 135.5 cm/sec LVOT Max Ritesh: 107.0 cm/sec Ao V2 mean: 95.3 cm/sec LV V1 max P.6 mmHg Ao max P.3 mmHg LV V1 VTI: 18.8 cm Ao mean P.1 mmHg KEISHA(I,D): 4.1 cm2 Ao V2 VTI: 23.2 cm KEISHA(V,D): 4.0 cm2 sev ratio: 0.81 KEISHA indexed to BSA (cm^2/m^2): 1.5 MV E max ritesh: 50.3 cm/sec PA V2 max: 95.4 cm/sec MV A max ritesh: 55.4 cm/sec PA V2 mean: 63.7 cm/sec MV E/A: 0.91 PA mean P.9 mmHg Med Peak E' Ritesh: 8.9 cm/sec PA pr(Accel): 32.8 mmHg E/E' med: 5.7 Lat Peak E' Ritesh: 6.8 cm/sec E/E' lat: 7.3 E/e' average: 6.5 MV dec time: 0.25 sec SV(LVOT): 95.6 ml Electronically signed by: Cora whitaker [place] Physician:10/15/2024 01:05 PM
[2024-10-14] MEDS: PRAMIPEXOLE 0.25 MG TABLET 0.5 MG PO (22:46)
[2024-10-15] VITALS (9 sets, daily range): BP systolic 100–159; BP diastolic 49–88; PULSE 60–87; RESP 18–20; TEMP 36.4–37.1; O2SAT 96–99
[2024-10-15 04:37] LABS: Add Manual Diff / Slide Review NO; Basophils Absolute Auto 0 /uL (0-100); Basophils Percent Auto 0.5 % (0-2); Eosinophils Absolute Auto 100 /uL (0-450); Eosinophils Percent Auto 1.7 % (2-4); Hematocrit 39.1 % (41-53); Hemoglobin 12.9 g/dL (13.5-17.5); Lymphocytes Absolute Auto 2500 /uL (1100-4500); Lymphocytes Percent Auto 34.1 % (25-40); Mean Corpuscular HGB Conc 33.1 % (30-36); Mean Corpuscular Hemoglobin 28.9 PG (26-34); Mean Corpuscular Volume 87.2 fL (80-100); Monocytes Absolute Auto 500 /uL (0-900); Monocytes Percent Auto 6.4 % (3-14); Neutrophils Absolute Auto 4300 /uL (1500-7000); Neutrophils Percent Auto 57.3 % (50-75); Platelet Count 246 X10^3/uL (150-400); Red Blood Cell Count 4.48 X10^6/uL (4.5-5.9); Red Cell Distribution Width 14.7 % (11.6-14.8); White Blood Cell Count 7.5 X10^3/uL (4.5-11.0)
[2024-10-15 04:46] LABS: BUN Creatinine Ratio 17.2 (6-22); Blood Urea Nitrogen 16 mg/dL (9-20); Calcium 8.9 mg/dL (8.4-10.2); Carbon Dioxide 23 mmol/L (22-32); Chloride 106 mmol/L (98-107); Estimated Glomerular Filt Rate > 60 mL/min (>60); Glucose 99 mg/dL (80-110); HEMOLYSIS < 15 (0-50); Potassium 4.1 mmol/L (3.4-5.1); Sodium 137 mmol/L (137-145)
--- NOTE | 2024-10-15 06:45 | P.HP_ITS ---
History of Present Illness History of Present Illness Date Patient Seen: 10/14/24 Time Patient Seen: 23:00 Chief complaint: chest pain Narrative: 59 y/o with PMH of A-fib on Eliquis and flecainide, HLD, HTN, DM and depression, presented today with left arm pain that sometimes radiates up to his jaw. He does have some increasing shortness of breath with exertion that has been going on for a couple of weeks. Initial ED workup negative for ACS with non-ischemic EKG and flat troponin. Placed in observation on telemetry to rule out ACS. [facility] Medical History (Updated 10/15/24 @ 06:54 by Pavel Lopez MD) Obesity (BMI 30-39.9) Herniated nucleus pulposus, L3-4 right Herniated nucleus pulposus, L3-4 left Erectile dysfunction Transaminitis Lumbar radiculopathy Lower back pain History of adenomatous polyp of colon (~2014) Paroxysmal atrial fibrillation Type 2 diabetes mellitus HTN (hypertension) BCC (basal cell carcinoma), chest Arthritis Acid reflux History of cardioversion (~2015) Foraminal stenosis of cervical region Mixed hyperlipidemia Facet arthropathy, cervical Radiculopathy of cervical spine Cervical spondylosis with radiculopathy Herniated nucleus pulposus, cervical Sleep apnea (06/30/16) Depression (06/02/16) Surgical History H/O neck surgery History of vasectomy (10/24/20) S/P epidural steroid injection Hx of appendectomy Family History Father Heart disease Melanoma Sister Heart disease Mother Diabetes mellitus Migraines Social History marital status: household members: spouse and children Smoking Status: Former smoker alcohol intake: former substance use type: does not use Meds Home Medications and Allergies Home Medications Medication Instructions Recorded Confirmed Type cetirizine 10 mg tablet 10 mg PO QDAY ##0 12/27/11 10/14/24 History omeprazole 40 mg capsule,delayed 40 mg PO QDAY #0 caps 08/04/13 10/14/24 History release flecainide 50 mg tablet 50 mg PO BID ##0 06/30/16 10/14/24 History apixaban 5 mg tablet (Eliquis) 5 mg PO BID 07/01/21 10/14/24 History sildenafil 100 mg tablet 50 - 100 mg (0.5 - 1 x 100 mg) PO 02/16/23 10/14/24 Rx DAILY PRN sexual activity #10 tabs lisinopril 5 mg tablet 5 mg PO DAILY 05/31/24 10/14/24 History metformin 500 mg tablet 500 mg PO DAILY #30 tabs 07/17/24 10/14/24 Rx metoprolol tartrate 25 mg tablet 25 mg PO DAILY #90 tabs 08/04/24 10/14/24 Rx trazodone 100 mg tablet 100 mg PO ONCE PM #90 tabs 08/04/24 10/14/24 Rx pramipexole 0.5 mg tablet 0.5 mg PO BEDTIME #90 tabs 08/10/24 10/14/24 Rx semaglutide 2 mg/dose (8 mg/3 mL) 0.6667 mg (0.25 mL) SUBCUT QWEEK 08/17/24 10/14/24 Rx subcutaneous pen injector (Ozempic) #3 mL atorvastatin 80 mg tablet 80 mg PO BEDTIME #90 tabs 09/11/24 10/14/24 Rx venlafaxine 75 mg capsule,extended 225 mg (3 x 75 mg) PO DAILY #270 09/11/24 10/14/24 Rx release 24 hr caps celecoxib 200 mg capsule 200 mg PO DAILY #90 caps 10/01/24 10/14/24 Rx duloxetine 30 mg capsule,delayed 30 mg PO DAILY #90 caps 10/12/24 10/14/24 Rx release Allergies Allergy/AdvReac Type Severity Reaction Status Date / Time cefotetan [CEFOTETAN] Allergy Intermediate ITCHING Verified 09/06/24 14:15 Review of Systems Cardiovascular Comments: exertional dyspnea, left arm and jaw pain, palpitations Respiratory Comments: w/o cough Gastrointestinal Comments: heartburn Musculoskeletal Comments: w/o myalgia Exam Vital Signs (past 8 hours): - 10/15/24 03:00 Temperature 97.5 F L Pulse Rate 68 Respiratory Rate 18 Blood Pressure 108/49 L Pulse Oximetry 98 Oxygen Flow Rate 0 Oxygen Delivery Method Room Air Oxygen Flow Rate 0 Const Other: in no distress HENMT Other: normocephalic Neck Other: supple Resp Other: CTA Cardio Other: RRR GI Other: w/'o abdominal distension Skin Other: w/o rashes Extrem Other: w/o swelling Psych Other: appropriate mood and affect Objective ECG Impression: NSR 70 Labs 10/15/24 04:05 10/15/24 04:05 Labs: Laboratory Results - last 24 hr 10/14/24 10/14/24 10/15/24 16:28 19:24 04:05 WBC 8.5 7.5 RBC 4.65 4.48 L Hgb 13.3 L 12.9 L Hct 40.5 L 39.1 L MCV 87.1 87.2 MCH 28.6 28.9 MCHC 32.8 33.1 RDW 14.6 14.7 Plt Count 282 246 Neut % (Auto) 55.9 57.3 Lymph % (Auto) 35.0 34.1 [place] % (Auto) 6.8 6.4 Eos % (Auto) 1.5 L 1.7 L Baso % (Auto) 0.8 0.5 Neut # (Auto) 4700 4300 Lymph # (Auto) 3000 2500 [place] # (Auto) 600 500 Eos # (Auto) 100 100 Baso # (Auto) 100 0 PT 12.5 INR 1.1 APTT 37 H Sodium 137 137 Potassium 4.4 4.1 Chloride 107 106 Carbon Dioxide 24 23 BUN 15 16 Creatinine 1.10 0.93 Estimated GFR > 60 > 60 BUN/Creatinine Ratio 13.6 17.2 Glucose 95 99 Calcium 9.2 8.9 Magnesium 1.8 Total Bilirubin 0.3 AST 50 ALT 55 H Alkaline Phosphatase 42 Total Creatine Kinase 134 Troponin I < 0.012 < 0.012 NT-Pro-B Natriuret Pep < 20 Total Protein 7.4 Albumin 4.3 Globulin 3.1 Albumin/Globulin Ratio 1.4 Lipase 205 Assessment & Plan Assessment and plan (1) Chest pain: Status: Acute (2) Paroxysmal atrial fibrillation: Status: Chronic (3) HTN (hypertension): Status: Acute (4) Acid reflux: Status: Acute (5) Type 2 diabetes mellitus: Qualifiers: Diabetes mellitus snf insulin use: without snf use Diabetes mellitus complication status: without complication Qualified Code(s): E11.9 - Type 2 diabetes mellitus without complications Status: Chronic (6) Mixed hyperlipidemia: Status: Chronic (7) Depression: Qualifiers: Depression Type: unspecified Qualified Code(s): F32.9 - Major depressive disorder, single episode, unspecified Status: Chronic Assessment & Plan narrative: Chest Pain - had ASA - telemetry monitoring - echocardiogram HTN - Lisinopril, metoprolol PAF - currently in sinus - Eliquis, metoprolol Mixed HLD - severe this summer - repeat lipid panel - statin, Zetia DM - metformin, CCD, SS Depression - Effexor RLS - pramipexole GERD - PPI Time-Based Coding :: [TOTAL MINUTES] spent with patient and on the chart (including review of chart, obtaining history, exam, reviewing outside data, placing orders, documenting exam and treatment plan, and counseling patient) on [DATE]. Quality VTE Deep Vein Thrombosis/Pulmonary Embolism Present on Admission: No
[2024-10-15 08:34] LABS: Cholesterol 146 mg/dL (140-199); HDL Cholesterol 41 mg/dL (40-60); LDL Cholesterol Calculated 77 mg/dL (<100); Triglycerides 138 mg/dL (35-150)
[2024-10-15 08:36] LABS: Hemoglobin A1C% w Est Avg Glu 5.5 % (4.0-6.0)
[2024-10-15] MEDS: APIXABAN 5 MG TABLET PO ×2 (08:37→20:18)
[2024-10-15] MEDS: METFORMIN HCL 500 MG TABLET PO (08:37)
[2024-10-15] MEDS: FLECAINIDE 100 MG TABLET 50 MG PO ×2 (08:37→20:18)
[2024-10-15] MEDS: VENLAFAXINE ER 75 MG CAP 225 MG PO (08:37)
[2024-10-15] MEDS: PANTOPRAZOLE DR 40 MG TABLET PO (08:37)
[2024-10-15] MEDS: NITROGLYCERIN 0.4 MG SL TAB SL ×2 (12:18→12:40)
--- NOTE | 2024-10-15 12:19 | EKG_ITS ---
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
[2024-10-15 13:21] LABS: Troponin I < 0.012 ng/mL (0.01-0.034)
[2024-10-15] MEDS: MAG HYDROX/ALUM/SIMETH 30 ML UDC PO (13:59)
[2024-10-15] MEDS: LORazepam 0.5 MG TABLET PO (14:51)
--- NOTE | 2024-10-15 14:51 | CM.DANOTE ---
DCP Assessment note pt is a 59yo M admitted with chest pain. PMH of diabetes. Echo/stress test pending. PCP Andrez Sin and self pay CENTER MACHINE OPERATOR reviewed EMR. Per chart, pt lives in [place] with spouse (RN here at ). Pt is active/indep at baseline. Per provider in morning rounds, echo/stress test pending. CENTER MACHINE OPERATOR met with pt, spouse, and children in room. Spouse reports that the new plan is to transfer to higher level of care for comprehensive cardiology f/u pending bed availability. Deny questions or CM needs at this time. CENTER MACHINE OPERATOR updated TCM team on pt's pending transfer. P: transfer to higher level of care pending bed availability for full cardiac work up. ([place]?). CM team will continue to follow as needed JOCELYN Davis Discharge Planning/Care Management Advanced directive, confirm from FAMILY Start: 10/14/24 21:34 Freq: Q24H Status: Active Protocol: Document 10/14/24 21:34 WB (Rec: 10/14/24 22:59 WB [id number]) Advance Directive, confirm on record Time 22:59 Person contacted Copy received No CM Discharge Assessment Start: 10/15/24 14:50 Freq: Status: Active Protocol: Document 10/15/24 14:50 SL (Rec: 10/15/24 14:50 SL [id number]) Discharge Planning Assessment Assigned Typewriter Mechanic JOCELYN Walsh DPOA/Assigned Designee Name Nicolasa, spouse Contact Information [phone] Advance Directives? Yes Advance Directives on File No History Provided By Patient,Family Member,Medical Record Prior Living Arrangements House Household Members spouse,children Type of transporation used prior to Drives own vehicle admit Independent with ADL's Yes Is patient alert and oriented? Yes Discharge Plan Home Transportation Arrangement family in POV Referrals Initiated None needed Review Status In Process Please Provide Date Initial DC 10/15/24 Assessment Was Performed Next Review Type Continued Stay Review
[2024-10-15] MEDS: LORazepam 1 MG TABLET PO (17:55)
--- NOTE | 2024-10-15 19:49 | P.DS_ITS ---
History of Present Illness History of Present Illness Chief complaint: chest pain Narrative: Per H&P: 59 y/o with PMH of A-fib on Eliquis and flecainide, HLD, HTN, DM and depression, presented today with left arm pain that sometimes radiates up to his jaw. He does have some increasing shortness of breath with exertion that has been going on for a couple of weeks. Initial ED workup negative for ACS with non-ischemic EKG and flat troponin. Placed in observation on telemetry to rule out ACS. Discharge Providers Provider Date of admission: 10/14/24 20:55 Discharge Date: 10/15/24 Primary care physician: Leslye Maguire MD Discharge provider: Sharon Guo MD Summary Hospital Course Discharge Diagnosis: 1. Chest pain, concern for CAD 2. Paroxysmal a fib 3. Hypokinesis distal anterior and apical L ventricle (new c/w 2018) - LAD distribution 4. DM2 5. HTN 6. Remote tobacco dependence 7. Family hx of CAD 8. HLD 9. GERD Hospital Course: Pt was admitted w/progressive episodes of chest pain and/or L arm pain radiating to the L neck. Some events would wake him from sleep. Some would occur at rest. These have been increasing in frequency. He has had prior stress tests but it was at least 8 years ago. His troponins were negative and there were no acute ECG changes. He developed recurrent CP on the am after admission. It responded to 2 doses of SL NTG. Repeat ECG and troponin were unchanged. Echocardiogram was done which showed subtle new hypokinesis to the apex and distal anterior L ventricle (LAD distribution). Based on his history and new changes on the Echo compared to 2018 echo, it was recommended pt transfer to a higher [facility] for cardiology services. He is established w/the cardiology service at [facility] in [place]. Pt remained asymptomatic for the remainder of the day on 10/15. I spoke w/Dr. Stephan Moran, Cardiology who agreed to patient transferring w/hospitalist service as primary and cardiology consulting. I then spoke to Dr. Stephan Martinez, hospitalist who kindly accepted the patient in transfer. Patient is pending a bed at the time of this dictation. Status at Discharge Cognitive/behavioral status at discharge: at baseline, oriented Functional status at discharge: independent ambulation Overall status at discharge: patient is not back to baseline Time Spent with Patient Time spent: Greater than 30 minutes Exam Vital Signs (past 8 hours): - 10/15/24 12:00 10/15/24 12:18 10/15/24 12:25 Temperature 97.8 F Pulse Rate 78 76 86 Respiratory Rate 18 Blood Pressure 159/88 H 159/88 H 100/63 Pulse Oximetry 99 Oxygen Flow Rate 0 10/15/24 12:40 10/15/24 12:45 10/15/24 16:00 Temperature 97.8 F Pulse Rate 60 60 87 Respiratory Rate 18 Blood Pressure 136/76 114/65 149/86 H Pulse Oximetry 99 Oxygen Flow Rate 0 Oxygen Delivery Method Room Air Oxygen Flow Rate 0 Narrative Exam Narrative: GEN: Middle-aged male, Alert and oriented x 3, NAD HEENT:NC, Face symmetric CHEST: Respiratory excursions symmetric, CTAB CV: RRR, no M/R/G ABD: Soft, NT/ND, BT present in all 4 quadrants, no organomegaly or masses EXTR: warm, well perfused, no C/C/E SKIN: warm and dry, no rash NEURO: Alert and oriented x 3, nonfocal Objective Labs 10/15/24 04:05 10/15/24 04:05 Labs: Laboratory Results - last 24 hr 10/14/24 10/15/24 10/15/24 19:24 04:05 12:48 WBC 7.5 RBC 4.48 L Hgb 12.9 L Hct 39.1 L MCV 87.2 MCH 28.9 MCHC 33.1 RDW 14.7 Plt Count 246 Neut % (Auto) 57.3 Lymph % (Auto) 34.1 [place] % (Auto) 6.4 Eos % (Auto) 1.7 L Baso % (Auto) 0.5 Neut # (Auto) 4300 Lymph # (Auto) 2500 [place] # (Auto) 500 Eos # (Auto) 100 Baso # (Auto) 0 Sodium 137 Potassium 4.1 Chloride 106 Carbon Dioxide 23 BUN 16 Creatinine 0.93 Estimated GFR > 60 BUN/Creatinine Ratio 17.2 Glucose 99 Hemoglobin A1c 5.5 Calcium 8.9 Troponin I < 0.012 < 0.012 Triglycerides 138 Cholesterol 146 LDL Cholesterol, Calc 77 HDL Cholesterol 41 [facility] Medical History (Updated 10/15/24 @ 06:54 by Pavel Lopez MD) Obesity (BMI 30-39.9) Herniated nucleus pulposus, L3-4 right Herniated nucleus pulposus, L3-4 left Erectile dysfunction Transaminitis Lumbar radiculopathy Lower back pain History of adenomatous polyp of colon (~2014) Paroxysmal atrial fibrillation Type 2 diabetes mellitus HTN (hypertension) BCC (basal cell carcinoma), chest Arthritis Acid reflux History of cardioversion (~2015) Foraminal stenosis of cervical region Mixed hyperlipidemia Facet arthropathy, cervical Radiculopathy of cervical spine Cervical spondylosis with radiculopathy Herniated nucleus pulposus, cervical Sleep apnea (06/30/16) Depression (06/02/16) Surgical History H/O neck surgery History of vasectomy (10/24/20) S/P epidural steroid injection Hx of appendectomy Family History Father Heart disease Melanoma Sister Heart disease Mother Diabetes mellitus Migraines Social History marital status: household members: spouse and children Smoking Status: Former smoker alcohol intake: former substance use type: does not use Discharge Plan Discharge Plan Patient Disposition: [facility] Other facility: [facility] Under care of provider: Dr. Stephan Martinez Provider Discharge Comment: 1) Metoprolol has been held for possible cardiac stress test (Dr. Moran discussed as a possibility) 2) Lisinopril and metformin have been held for possible nuclear stress test or heart cath Discharge Health Status Multidrug resistant organism: No MDRO Precautions: Raymond Diet/Activity/Treatments Diet: Carb-consistent/Diabetic Liquid consistency: Normal/Thin Food texture: Regular Diet comment: NPO after midnight Activity: As tolerated Oxygen: N/A Discharge Data Primary Care Provider: Leslye Maguire Attending Provider: Pavel Rivera Admit Date/Time: 10/14/24 20:55 Quality VTE Deep Vein Thrombosis/Pulmonary Embolism Present on Admission: No
[2024-10-15] MEDS: PRAMIPEXOLE 0.25 MG TABLET 0.5 MG PO (20:18)
[2024-10-15] MEDS: ATORVASTATIN 20 MG TABLET 80 MG PO (20:18)
[2024-10-15] MEDS: FENOFIBRATE, MICRONIZED 67 MG CAPSULE 201 MG PO (20:18)
[2024-10-15] MEDS: ASPIRIN EC 81 MG TABLET PO (21:26)
--- NOTE | 2024-10-15 22:49 | PC.NURSE ---
NOC: Pt in stable condition, in SR, LS bilateral clear. LAC PIV intact and patent. No pain reported at this time. Report provided to Nurse Adonis ([phone]) @ [facility]. Report and transfer paperwork provided to ACLS transport nurse. All belongings with pt and family. Pt escorted to ACLS transport via gurney by due diligence coordinator and nurse. MD valderrama.
== END 2024-10-15 10:30 | disposition short-term general hospital (02) ==
LOC: ED 17:50 → AC 20:55
PROVIDERS: Emergency Medicine; Family Medicine; Admitting Provider Internal Medicine; Emergency Provider Emergency Medicine; PCP Student in an Organized Health Care Education/Training Program; Referring Provider Emergency Medicine; Visit Provider Internal Medicine
DX: R07.9 Chest pain, unspecified (principal); I48.0 Paroxysmal atrial fibrillation; I10 Essential (primary) hypertension; K21.9 Gastro-esophageal reflux disease without esophagitis; E11.9 Type 2 diabetes mellitus without complications; E78.2 Mixed hyperlipidemia; F32.9 Major depressive disorder, single episode, unspecified; Z79.84 Long term (current) use of oral hypoglycemic drugs; Z79.01 Long term (current) use of anticoagulants
CPT/HCPCS: 36415; 71045; 80048; 80053; 80061; 81003; 82550; 82962; 83036; 83690; 83735; 83880; 84484; 85025; 85610; 85730; 93005; 99284; G0378; C8929; Q9957

== ENCOUNTER 2024-10-31 08:34 | Outpatient (CLI) | payer OTHER, SELFPAY ==
[2024-02-29 11:49] VITALS: BMI 39.6
[2024-10-14 21:10] VITALS: BMI 34.4
[2024-10-31] VITALS (8 sets, daily range): BP systolic 120–147; BP diastolic 64–79; PULSE 62–74; RESP 14–20; TEMP 36.1; O2SAT 98–99
--- NOTE | 2024-10-31 08:35 | DI.RAD.S_ITS ---
PROCEDURE: PAIN C/T INTERLAMINAR INJECT INDICATIONS: C6/7 TL HANNA COMPARISON: [facility], , PAIN C/T INTERLAMINAR INJECT, 04/04/2024, 9:24. FINDINGS/IMPRESSION: Fluoroscopic spot filming was performed to verify placement of spinal needles at the C6-7 level(s), as labeled on the films. Appropriate location(s) of the needle tip(s) was confirmed by injection of iodinated contrast. Dictated by: Samaria Kulkarni M.D. on 11/01/2024 at 22:43 Approved by: Samaria Kulkarni M.D. on 11/01/2024 at 22:43
[2024-10-31] MEDS: MIDAZOLAM 2 MG/2 ML VIAL IV (09:36)
[2024-10-31] MEDS: BUPIVACAINE 0.25% (PF) VIAL 2 ML INJ (09:41)
[2024-10-31] MEDS: iopamidoL 15 ML VIAL 3 ML INJ (09:42)
[2024-10-31] MEDS: DEXAMETHASONE 10 MG/ML VIAL 30 MG INJ (09:42)
--- NOTE | 2024-10-31 10:00 | P.PCN_ITS ---
Date/Time/Diagnoses Date of procedure: 10/31/24 Time of procedure: 10:00 Pre-procedure diagnosis: 1. CERVICAL STENOSIS, 2. CERVICAL HNP WITH UPPER EXTREMITY RADICULAR FEATURES Post-procedure diagnosis: same Procedure Notes Procedure: 1. FLUORSCOPICALLY GUIDED CONTRAST CONTROLLED INTERLAMINAR EPIDURAL STEROID INJECTION - C6/7 TL HANNA Indications: Henry is referred by Dr. Maguire for treatment of Cervical HNP with Upper Extremity Paresthesias. Physician: Stephan Barragan Total Fluoroscopy time (seconds): 28 Total sedation minutes: 19 Complications: none Procedure in detail & Post-procedure care: FINDINGS Cervical Stenosis due to disc deterioration and nerve root irritation and nerve root irritation DESCRIPTION OF PROCEDURE Fluoroscopically guided, contrast-controlled C6/7 translaminar epidural steroid injection with conscious sedation. Following review of allergy and review of potential side effects and complications, including, but not necessarily limited to, infection, allergic reaction, local tissue breakdown, temporary as well as permanent nerve injury, stroke, paralysis, and possible , the patient indicated that patient understood and agreed to proceed. An informed consent document was signed by the patient, witnessed by a nurse, and placed in the patient's chart. Additionally, other treatment options including modalities, medications, and physical therapy were reviewed with the patient. After review of previous anaesthesic history and IV conscious sedation the patient was deemed safe to proceed with today?s procedure with IV conscious s edation as ASA class II designation. Safety time-out was performed to confirm patient ID, procedure to be performed and site of procedure. IV sedation was accomplished with a combination of 2mg of Versed administered by the RN after DO order, titrated to patient comfort during the course of the procedure while the patient remained responsive to all verbal commands. In the prone position, following sterile prep and drape of the cervical region, the C6/7 translaminar space was identified fluoroscopically. The skin was anesthetized via a 25-gauge 1.5-inch needle with 1% lidocaine solution. At this point, a 25-gauge, 2.5-inch short bevel spinal needle was atraumatically introduced and advanced under fluoroscopic guidance into epidural space at the C6/7 translaminar space. Depth was confirmed on lateral view. Radiological data, including multiple fluoroscopic views of the cervical spine, reveal a spinal needle at the C6/7 translaminar space. Lateral views then show placement of the needle in the epidural space. Subsequent views show contrast material flowing superiorly and inferiorly in the epidural space. DSA fluoroscopy with live contrast injection, once again, confirmed no vascular or intrathecal uptake. At this point, using loss of resistance technique with saline and air, the epidural space was entered. Following negative aspiration, injection of approximately 1.5 cc of Isovue-200 with live fluoroscopy in the AP view confirmed epidural flow in the epidural space without vascular or intrathecal uptake observed. Subsequently, a test dose of 1 cc of 1% lidocaine solution was injected and patient was observed for two minutes without signs or symptoms of complications, including abdominal pain, shortness of breath, bilateral upper or lower extremity weakness, nausea and vomiting, prior to steroid injection. At this point, 3cc or 30mg of dexamethasone was then injected without incident. The patient tolerated the procedure well without signs or symptoms of complications prior to being transferred to the recovery area for further monitoring, The patient was then transferred to the recovery area where they were observed for an appropriate period of time after the injection. The patient reported a VAS score of 6 prior to the procedure and a post-procedure VAS of 0. POST OP INSTRUCTIONS The patient was provided a Pain Log to continue to record their response to the target-specific procedure prior to follow-up visit with the referring provider. Additionally, specific post-injection care instructions and a contact number to our office were provided if concerns arise regarding possible complications associated with the procedure are suspected.
== END 2024-10-31 10:12 | disposition home or self-care (01) ==
PROVIDERS: PCP Student in an Organized Health Care Education/Training Program; Referring Provider Physical Medicine & Rehabilitation; Visit Provider Physical Medicine & Rehabilitation
DX: M48.02 Spinal stenosis, cervical region (principal); M50.123 Cervical disc disorder at C6-C7 level with radiculopathy
CPT/HCPCS: 62321; 99152; J1100; J2250; J3490

== ENCOUNTER → 2024-11-06 08:25 | Outpatient (CLI) | payer OTHER, SELFPAY ==
[2024-10-14 21:10] VITALS: BMI 34.4
== END ==
PROVIDERS: PCP Student in an Organized Health Care Education/Training Program; Referring Provider Student in an Organized Health Care Education/Training Program; Visit Provider Student in an Organized Health Care Education/Training Program
DX: R06.02 Shortness of breath (principal); Z87.891 Personal history of nicotine dependence; R94.2 Abnormal results of pulmonary function studies; R42 Dizziness and giddiness
CPT/HCPCS: 94060; 94726; 94729

== ENCOUNTER → 2025-01-01 12:14 | Outpatient (CLI) | payer OTHER, SELFPAY ==
[2024-10-14 21:10] VITALS: BMI 34.4
--- NOTE | 2025-01-01 12:15 | DI.RAD.S_ITS ---
PROCEDURE: XR FOOT LT MIN 3V INDICATIONS: Dropped object on top of foot TECHNIQUE: 3 views of the foot were acquired. COMPARISON: [facility], , FOOT 3V RIGHT, 01/16/2018, 7:01. FINDINGS: Bones: There are no fractures or other osseous abnormalities Joints: Mild degeneration the 1st MTP and 2nd through 5th interphalangeal joints appreciated. Soft tissues: Moderate diffuse soft swelling noted. 5 millimeter calcification in the soft tissues adjacent the posterior inferior calcaneus is likely dystrophic calcification. There is minor ossification at the Achilles tendon insertion IMPRESSION: No fracture. Diffuse soft tissue swelling compatible with posttraumatic edema. Other chronic findings as described Dictated by: Cam Guaman M.D. on 01/02/2025 at 9:31 Approved by: Cam Guaman M.D. on 01/02/2025 at 9:33
== END ==
PROVIDERS: PCP Student in an Organized Health Care Education/Training Program; Referring Provider Nurse Practitioner Family; Visit Provider Nurse Practitioner Family
DX: S90.32XA Contusion of left foot, initial encounter (principal); M79.89 Other specified soft tissue disorders; M19.072 Primary osteoarthritis, left ankle and foot; W20.8XXA Other cause of strike by thrown, projected or falling object, initial encounter
CPT/HCPCS: 73630

== ENCOUNTER 2025-01-11 08:55 | Outpatient (CLI) | payer OTHER, SELFPAY ==
[2024-10-14 21:10] VITALS: BMI 34.4
[2025-01-11] VITALS (8 sets, daily range): BP systolic 134–155; BP diastolic 73–86; PULSE 68–76; RESP 14–17; TEMP 36; O2SAT 97–99
[2025-01-11] MEDS: MIDAZOLAM 2 MG/2 ML VIAL IV (09:33)
[2025-01-11] MEDS: BUPIVACAINE 0.25% (PF) VIAL 2 ML INJ (09:39)
[2025-01-11] MEDS: DEXAMETHASONE 10 MG/ML VIAL 30 MG INJ (09:41)
[2025-01-11] MEDS: iopamidoL 15 ML VIAL 3 ML INJ (09:42)
--- NOTE | 2025-01-11 09:51 | P.PCN_ITS ---
Date/Time/Diagnoses Date of procedure: 01/11/25 Time of procedure: 09:51 Pre-procedure diagnosis: 1. CERVICAL STENOSIS, 2. CERVICAL HNP WITH UPPER EXTREMITY RADICULAR FEATURES Post-procedure diagnosis: same Procedure Notes Procedure: 1. FLUORSCOPICALLY GUIDED CONTRAST CONTROLLED INTERLAMINAR EPIDURAL STEROID INJECTION - C6/7 TL HANNA Indications: Henry is referred by Dr. Maguire for treatment of Cervical HNP with Upper Extremity Paresthesias. Physician: Stephan Barragan Total Fluoroscopy time (seconds): 34 Total sedation minutes: 15 Complications: none Procedure in detail & Post-procedure care: FINDINGS Cervical Stenosis due to disc deterioration and nerve root irritation and nerve root irritation DESCRIPTION OF PROCEDURE Fluoroscopically guided, contrast-controlled C6/7 translaminar epidural steroid injection with conscious sedation. Following review of allergy and review of potential side effects and complications, including, but not necessarily limited to, infection, allergic reaction, local tissue breakdown, temporary as well as permanent nerve injury, stroke, paralysis, and possible , the patient indicated that patient understood and agreed to proceed. An informed consent document was signed by the patient, witnessed by a nurse, and placed in the patient's chart. Additionally, other treatment options including modalities, medications, and physical therapy were reviewed with the patient. After review of previous anaesthesic history and IV conscious sedation the patient was deemed safe to proceed with today?s procedure with IV conscious s edation as ASA class II designation. Safety time-out was performed to confirm patient ID, procedure to be performed and site of procedure. IV sedation was accomplished with a combination of 2mg of Versed administered by the RN after DO order, titrated to patient comfort during the course of the procedure while the patient remained responsive to all verbal commands. In the prone position, following sterile prep and drape of the cervical region, the C6/7 translaminar space was identified fluoroscopically. The skin was anesthetized via a 25-gauge 1.5-inch needle with 1% lidocaine solution. At this point, a 25-gauge, 2.5-inch short bevel spinal needle was atraumatically introduced and advanced under fluoroscopic guidance into epidural space at the C6/7 translaminar space. Depth was confirmed on lateral view. Radiological data, including multiple fluoroscopic views of the cervical spine, reveal a spinal needle at the C6/7 translaminar space. Lateral views then show placement of the needle in the epidural space. Subsequent views show contrast material flowing superiorly and inferiorly in the epidural space. DSA fluoroscopy with live contrast injection, once again, confirmed no vascular or intrathecal uptake. At this point, using loss of resistance technique with saline and air, the epidural space was entered. Following negative aspiration, injection of approximately 1.5 cc of Isovue-200 with live fluoroscopy in the AP view confirmed epidural flow in the epidural space without vascular or intrathecal uptake observed. Subsequently, a test dose of 1 cc of 1% lidocaine solution was injected and patient was observed for two minutes without signs or symptoms of complications, including abdominal pain, shortness of breath, bilateral upper or lower extremity weakness, nausea and vomiting, prior to steroid injection. At this point, 2cc or 20mg of dexamethasone was then injected without incident. The patient tolerated the procedure well without signs or symptoms of complications prior to being transferred to the recovery area for further monitoring, The patient was then transferred to the recovery area where they were observed for an appropriate period of time after the injection. The patient reported a VAS score of 7 prior to the procedure and a post-procedure VAS of 1. POST OP INSTRUCTIONS The patient was provided a Pain Log to continue to record their response to the target-specific procedure prior to follow-up visit with the referring provider. Additionally, specific post-injection care instructions and a contact number to our office were provided if concerns arise regarding possible complications associated with the procedure are suspected.
== END 2025-01-11 10:05 | disposition home or self-care (01) ==
PROVIDERS: PCP Student in an Organized Health Care Education/Training Program; Referring Provider Physical Medicine & Rehabilitation; Visit Provider Physical Medicine & Rehabilitation
DX: M48.02 Spinal stenosis, cervical region (principal); M50.123 Cervical disc disorder at C6-C7 level with radiculopathy
CPT/HCPCS: 62321; 99152; J1100; J2250; J3490

== ENCOUNTER → 2025-02-17 18:10 | Outpatient (CLI) | payer OTHER, SELFPAY ==
[2024-10-14 21:10] VITALS: BMI 34.4
--- NOTE | 2025-02-17 19:19 | DI.RAD.S_ITS ---
PROCEDURE: XR FOREARM RT 2V INDICATIONS: Right elbow, forearm injury/pain TECHNIQUE: 2 views of the forearm were acquired. COMPARISON: None. FINDINGS: Bones: No acute fractures or dislocations. Chronic ununited ulnar styloid fracture. No suspicious bony lesions. Soft tissues: No suspicious soft tissue calcifications. IMPRESSION: No acute osseous abnormality. If there is continued clinical concern or persistent symptoms, repeat radiographs or cross-sectional imaging (e.g. CT, MRI) may be helpful for further evaluation. Approved by: Lauro Gonzales M.D. on 02/17/2025 at 19:45
--- NOTE | 2025-02-17 19:19 | DI.RAD.S_ITS ---
PROCEDURE: XR ELBOW RT MIN 3V INDICATIONS: Right elbow, forearm injury/pain TECHNIQUE: 3 views of the elbow were acquired. COMPARISON: None. FINDINGS: Bones: No acute fractures or dislocations. No suspicious bony lesions. Soft tissues: No elbow joint effusion. No suspicious soft tissue calcifications. IMPRESSION: No acute osseous abnormality. If there is continued clinical concern or persistent symptoms, repeat radiographs or cross-sectional imaging (e.g. CT, MRI) may be helpful for further evaluation. Approved by: Lauro Gonzales M.D. on 02/17/2025 at 19:46
== END ==
PROVIDERS: PCP Student in an Organized Health Care Education/Training Program; Referring Provider Physician Assistant Surgical; Visit Provider Physician Assistant Surgical
DX: M25.521 Pain in right elbow (principal); M79.631 Pain in right forearm; S49.91XA Unspecified injury of right shoulder and upper arm, initial encounter; S52.611S Displaced fracture of right ulna styloid process, sequela; X58.XXXA Exposure to other specified factors, initial encounter
CPT/HCPCS: 73080; 73090

== ENCOUNTER → 2025-02-22 17:12 | Outpatient (CLI) | payer OTHER, SELFPAY ==
[2024-10-14 21:10] VITALS: BMI 34.4
--- NOTE | 2025-02-22 17:13 | DI.MRI.S_ITS ---
PROCEDURE: MR ELBOW RT WO CON INDICATIONS: lifted heavy toolbox immediately felt a pop/pain in elbow TECHNIQUE: Noncontrast coronal proton density fast spin echo and T2 fast spin echo with fat saturation, axial and sagittal T1 spin echo and T2 fast spin echo with fat saturation through the elbow. COMPARISON: None. FINDINGS: Image quality: Excellent. Lateral structures: The lateral ulnar collateral ligament and radial collateral ligament both appear intact. Low-grade partial-thickness tear involving common extensor tendon origin at its lateral epicondylar insertion is seen. Medial structures: The ulnar collateral ligament appears mildly thickened at its medial epicondylar insertion. The overlying common flexor tendon appears thickened with intrasubstance T2 hyperintense signal. The ulnar nerve appears normal in size and signal within the cubital tunnel. Anterior structures: Tendinosis and low-grade partial-thickness tear involving distal biceps tendon at its proximal radial insertion is seen extending to musculotendinous junction with surrounding fluid and edema. Distal brachialis tendon is intact. No full-thickness tendon rupture. The median and radial neurovascular bundles appear normal; no focal muscle atrophy to suggest nerve impingement. Posterior structures: The conjoint triceps tendon from the long and lateral heads appears intact. The medial head of the triceps tendon also appears normal, with direct muscle insertion onto the olecranon. No olecranon bursal fluid. Bone and cartilage: No bone marrow contusions or fractures. No osteochondral injuries. IMPRESSION: 1. Moderate grade partial-thickness tear involving distal biceps tendon at its proximal radial insertion extending to musculotendinous junction with surrounding fluid and edema. No full-thickness tendon rupture. The brachialis tendon is intact. 2. Low-grade medial epicondylitis with sprain of proximal ulnar collateral ligament and low-grade partial-thickness tear involving overlying common flexor tendon origin. 3. Low-grade partial-thickness tear also seen involving common flexor tendon origin at lateral epicondyle. Radial collateral ligaments are grossly intact. 4. No marrow edema. No fracture or dislocation. No evidence of avascular necrosis. Dictated by: Estevan Pedraza M.D. on 02/23/2025 at 14:33 Approved by: Estevan Pedraza M.D. on 02/23/2025 at 14:41
== END ==
PROVIDERS: PCP Student in an Organized Health Care Education/Training Program; Referring Provider Student in an Organized Health Care Education/Training Program; Visit Provider Physician Assistant
DX: S56.211A Strain of other flexor muscle, fascia and tendon at forearm level, right arm, initial encounter (principal); S46.211A Strain of muscle, fascia and tendon of other parts of biceps, right arm, initial encounter; M77.01 Medial epicondylitis, right elbow; M25.521 Pain in right elbow; X50.0XXA Overexertion from strenuous movement or load, initial encounter
CPT/HCPCS: 73221

== ENCOUNTER 2025-03-08 06:20 | Day surgery (SDC) | payer OTHER, SELFPAY ==
[2024-10-14 21:10] VITALS: BMI 34.4
[2025-02-28 13:43] VITALS: BMI 35.2
[2025-03-08 06:56] VITALS: BP 138/74; PULSE 79; RESP 17; TEMP 36.2; O2SAT 95; BMI 35.2
[2025-03-08] MEDS: LACTATED RINGERS 1,000 ML 42 ML IV (07:14)
--- NOTE | 2025-03-08 07:21 | PM.PREOP ---
Pre-operative Note Interval Note History & Physical reviewed/Exam performed by Physician: Yes Changes to H&P: No
[2025-03-08] MEDS: CLINDAMYCIN 900 MG/50 ML PIGGYBACK 50 MG IV (07:45)
--- NOTE | 2025-03-08 08:16 | SUR.OPER ---
Supine on padded OR bed, head on pillow, Right arm on wide arm board for operative site, non arm secured on padded arm boards at <90 degrees abduction, legs uncrossed, safety belt at thigh, tape over blanket over lower legs.
[2025-03-08] MEDS: BUPIVACAINE 0.5% W/ EPI (PF) 30 ML VIAL INJ (08:28)
[2025-03-08 09:20] VITALS: BP 158/84; PULSE 88; RESP 16; O2SAT 97
--- NOTE | 2025-03-08 09:27 | PM.OP.1 ---
Operative Date/Time/Diagnoses Date of procedure: 03/08/25 Time of procedure: 08:00 Pre-op diagnosis: Right distal biceps partial tear Post-op diagnosis: same Procedure & Clinicians Procedure: Repair of the right distal biceps tendon Same procedure as scheduled: Yes Indications: Tear to the right distal biceps tendon Surgeon: Willian Cullen Click Yes if Unassisted: Yes Anesthesia Type: General Operative Notes Findings: Almost complete rupture of the distal biceps tendon. No sign of any other injuries to the elbow. Closure Type: primary Applied: implant(s) (Endo button and tenodesis screw.) Estimated Blood Loss (mL): 10 Tourniquet time (min): 53 Procedure in detail: On date of service, patient was met in the holding area. Operative site was signed and witnessed by the OR staff. The surgery once again discussed with patient and any remaining questions they had were answered fully. Patient was taken back to the operating theater and placed on the operating table in the supine position. Great care taken to ensure that all bony prominences were properly padded. A well-padded tourniquet was placed up along the upper extremity. A timeout was performed to verify patient's name, procedure, and operative site. Right arm was prepped and draped in a normal sterile fashion. Esmarch was used to exsanguinate the limb and the tourniquet was turned up to 250 mmHg. A diagonal incision was made starting at proximal medial and going to distal radial. The lateral antecubital cutaneous nerve was identified and protected. Patient had a almost complete rupture of the distal biceps. 10% of the fibers were still attached to the proximal radius. Pickups and Metzenbaum scissors were used to remove the pseudo tendinous tissue as well as the scar tissue. We then turned our attention to the bicipital tuberosity. Blunt dissection was performed allowing us to get down to the proximal radius. The bony attachment was debrided using a periosteal elevator. Next, A guidewire was placed through the bicipital tuberosity. The proximal aspect of the cortex was drilled to 8 mm. The wound was then loosely irrigated to remove any bony fragments. The distal cortex was drilled to 4 mm. Sutures were then placed through the lateral holes of the Endo button. These were then placed into the guidewire and passed through a bony tunnel and out the forearm. Those marionette Sutures were used to flip the Endobutton and put it into its appropriate position as a buttress. This provided a reed repair of the biceps tendon. Next, a tenodesis screw was placed for additional fixation of the distal biceps tendon. The wound was copiously irrigated again and closed in a layered fashion. Patient was cleaned dried and dressed and he was placed into a splint. Patient was taken to the PACU in stable condition. Postoperatively, neurovascular check was done to the hand. Patient had a 2+ radial pulse and brisk cap refill. Patient had no signs of any posterior interosseous nerve dysfunction. Patient was able to easily fully extend the fingers and the thumb. Complications: none Post-operative Condition: stable Disposition: same day surgery Plan for aftercare: Patient will be in the splint until he is converted over to a hinged elbow brace.
[2025-03-08 09:28] VITALS: BP 156/87; PULSE 84; RESP 16; TEMP 36.2; O2SAT 100
[2025-03-08 09:33] VITALS: BP 158/84; PULSE 89; RESP 16; TEMP 36.2; O2SAT 98
[2025-03-08] MEDS: OXYCODONE IR 5 MG TABLET PO (09:40)
[2025-03-08] MEDS: ACETAMINOPHEN IV 1,000 MG/100 ML VIAL 400 MG IV (09:40)
[2025-03-08 09:42] VITALS: BP 149/83; PULSE 81; RESP 16; TEMP 36.2; O2SAT 97
[2025-03-08 09:57] VITALS: BP 165/66; PULSE 78; RESP 16; TEMP 36.2; O2SAT 98
== END 2025-03-08 10:31 | disposition home or self-care (01) ==
PROVIDERS: PCP Student in an Organized Health Care Education/Training Program; Referring Provider Orthopaedic Surgery; Visit Provider Orthopaedic Surgery
PROC: (CPT 24341; principal; 2025-03-08 07:45)
DX: S46.211A Strain of muscle, fascia and tendon of other parts of biceps, right arm, initial encounter (principal); X50.0XXA Overexertion from strenuous movement or load, initial encounter; Z87.891 Personal history of nicotine dependence; R73.03 Prediabetes
CPT/HCPCS: 24342; J0131; J0330; J1100; J2405; J2704; J3010

== ENCOUNTER → 2025-03-12 06:57 | Outpatient (CLI) | payer OTHER, SELFPAY ==
[2024-10-14 21:10] VITALS: BMI 34.4
[2025-03-12 07:50] LABS: Add Manual Diff / Slide Review NO; Basophils Absolute Auto 0 /uL (0-100); Basophils Percent Auto 0.5 % (0-2); Eosinophils Absolute Auto 200 /uL (0-450); Eosinophils Percent Auto 2.7 % (2-4); Hemoglobin 12.6 g/dL (13.5-17.5); Lymphocytes Absolute Auto 2300 /uL (1100-4500); Lymphocytes Percent Auto 38.7 % (25-40); Mean Corpuscular HGB Conc 33.3 % (30-36); Mean Corpuscular Hemoglobin 28.3 PG (26-34); Mean Corpuscular Volume 85.1 fL (80-100); Monocytes Absolute Auto 400 /uL (0-900); Monocytes Percent Auto 6.9 % (3-14); Neutrophils Absolute Auto 3000 /uL (1500-7000); Neutrophils Percent Auto 51.2 % (50-75); Platelet Count 212 X10^3/uL (150-400); Red Blood Cell Count 4.46 X10^6/uL (4.5-5.9); Red Cell Distribution Width 14.4 % (11.6-14.8)
[2025-03-12 08:22] LABS: Hemoglobin A1C% w Est Avg Glu 5.6 % (4.0-6.0)
[2025-03-12 08:25] LABS: Alanine Aminotransferase 86 IU/L (<50); Albumin 3.7 g/dL (3.5-5.0); Albumin Globulin Ratio 1.4 (1.0-2.8); Alkaline Phosphatase 93 U/L (38-126); Aspartate Aminotransferase 76 IU/L (17-59); BUN Creatinine Ratio 25.9 (6-22); Bilirubin Total 0.4 mg/dL (0.2-1.3); Blood Urea Nitrogen 22 mg/dL (9-20); Carbon Dioxide 29 mmol/L (22-32); Chloride 101 mmol/L (98-107); Cholesterol 146 mg/dL (140-199); Estimated Glomerular Filt Rate > 60 mL/min (>60); Globulin 2.7 g/dL (1.7-4.1); Glucose 116 mg/dL (70-99); HDL Cholesterol 39 mg/dL (40-60); HEMOLYSIS < 15 (0-50); LDL Cholesterol Calculated 52 mg/dL (<100); Potassium 4.5 mmol/L (3.4-5.1); Sodium 137 mmol/L (137-145); Total Protein 6.4 g/dL (6.3-8.2); Triglycerides 273 mg/dL (35-150)
[2025-03-12 08:36] LABS: Creatinine Urine Random 150.21 mg/dL
[2025-03-12 08:42] LABS: Microalbumin Urine Random 0.6 mg/dL (0-1.6)
== END ==
PROVIDERS: PCP Student in an Organized Health Care Education/Training Program; Referring Provider Student in an Organized Health Care Education/Training Program; Visit Provider Student in an Organized Health Care Education/Training Program
DX: I10 Essential (primary) hypertension (principal); E11.9 Type 2 diabetes mellitus without complications
CPT/HCPCS: 36415; 80053; 80061; 82043; 82570; 83036; 85025

== ENCOUNTER 2025-03-15 06:40 | Day surgery (SDC) | payer OTHER, SELFPAY ==
[2024-10-14 21:10] VITALS: BMI 34.4
--- NOTE | 2025-03-15 | PATH_ITS ---
[facility] Accession Number: [id number] No. of containers..02 Tissue . 01 Material submitted: . PART A: gastrointestinal site - GASTRIC POLYP PART B: stomach - STOMACH, ANTRUM . 01 Diagnosis: Part A: GASTRIC POLYP: Gastric hyperplastic polyp, with mild chronic inflammation. No Helicobacter organisms identified. No intestinal metaplasia, dysplasia, or malignancy identified. . Part B: STOMACH, ANTRUM: Gastric mucosa with mild chronic inflammation. No Helicobacter organisms identified. No intestinal metaplasia, dysplasia, or malignancy identified. [facility] Local . 01 Comment: Parts A, B: An immunohistochemical stain was performed to evaluate for Helicobacter organisms and is negative. The control stains appropriately. * This test was developed and the performance characteristics were validated by [employer]. It has not been cleared or approved by the Food and Drug Administration. . 01 Electronically signed: . Avni Jain MD, Pathologist NPI- [id number] . 01 Gross description: . Part A: GASTRIC POLYP: Received in formalin are 2 fragments of rodas soft tissue measuring 1.5 x 1.5 x 1.5 cm in aggregate. Specimen is sectioned and submitted in its entirety in 3 cassettes. . Part B: STOMACH, ANTRUM: Received in formalin are 2 fragment(s) of rodas, soft tissue measuring 0.3 x 0.2 x 0.2 cm to 0.4 x 0.2 x 0.2 cm submitted entirely in 1 cassette(s) /[facility] 03/21/20254 Local . 01 Microscopic: . Part A: GASTRIC POLYP: . . 01 Pathologist provided ICD-10: K29.50, K31.7 . 01 CPT . 572394, 960543, S33911 Specimen Comment: A courtesy copy of this report has been sent to [phone] Performed at: [facility] [address] [facility], [place], [place] [id number] MD Avni Jain MD Phone: [phone]
[2025-03-15 07:01] VITALS: BP 144/79; PULSE 69; RESP 16; TEMP 36.2; O2SAT 98
[2025-03-15] MEDS: LACTATED RINGERS 1,000 ML 42 ML IV (07:24)
--- NOTE | 2025-03-15 07:39 | PM.HP.IH.1 ---
History of Present Illness History of Present Illness Date Patient Seen: 03/15/25 Time Patient Seen: 07:39 Chief complaint: EGD Narrative: Henry is a 60 year old man with dysphagia seemed to start after his anterior cervical spine surgery. See the office note from November for details. He has held his apixaban since Wednesday. 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 [facility] Medical History (Updated 03/12/25 @ 08:37 by Leslye Maguire MD) Hx of coronary angiogram (10/18/24) Obesity (BMI 30-39.9) Herniated nucleus pulposus, L3-4 right Herniated nucleus pulposus, L3-4 left Erectile dysfunction Transaminitis Lumbar radiculopathy Lower back pain History of adenomatous polyp of colon (~2014) Paroxysmal atrial fibrillation Type 2 diabetes mellitus HTN (hypertension) BCC (basal cell carcinoma), chest Arthritis Acid reflux History of cardioversion (~2015) Foraminal stenosis of cervical region Mixed hyperlipidemia Facet arthropathy, cervical Radiculopathy of cervical spine Cervical spondylosis with radiculopathy Herniated nucleus pulposus, cervical Sleep apnea (06/30/16) Depression (06/02/16) Surgical History (Updated 02/28/25 @ 14:08 by Arina Washington RN) Hx of cervical spine surgery (10/24/20) H/O neck surgery History of vasectomy (10/24/20) S/P epidural steroid injection Hx of appendectomy Family History Father Heart disease Melanoma Sister Heart disease Mother Diabetes mellitus Migraines Social History marital status: household members: spouse and children alcohol intake: former substance use type: does not use Meds Home Medications and Allergies Home Medications Medication Instructions Recorded Confirmed Type cetirizine 10 mg tablet 10 mg PO QDAY ##0 12/27/11 03/12/25 History omeprazole 40 mg capsule,delayed 40 mg PO QDAY #0 caps 08/04/13 03/12/25 History release flecainide 50 mg tablet 50 mg PO BID ##0 06/30/16 03/12/25 History apixaban 5 mg tablet (Eliquis) 5 mg PO BID 07/01/21 03/14/25 History sildenafil 100 mg tablet 50 - 100 mg (0.5 - 1 x 100 mg) PO 02/16/23 03/12/25 Rx DAILY PRN sexual activity #10 tabs lisinopril 5 mg tablet 5 mg PO DAILY 05/31/24 03/12/25 History atorvastatin 80 mg tablet 80 mg PO BEDTIME #90 tabs 09/11/24 03/12/25 Rx venlafaxine 75 mg capsule,extended 225 mg (3 x 75 mg) PO DAILY #270 09/11/24 03/12/25 Rx release 24 hr caps celecoxib 200 mg capsule 200 mg PO DAILY #90 caps 10/01/24 03/12/25 Rx metoprolol tartrate 25 mg tablet 25 mg PO DAILY #90 tabs 11/07/24 03/15/25 Rx trazodone 100 mg tablet 100 mg PO QPM #90 tabs 11/07/24 03/12/25 Rx semaglutide 2 mg/dose (8 mg/3 mL) 2 mg (0.75 mL) SUBCUT QWEEK #3 mL 11/27/24 03/14/25 Rx subcutaneous pen injector (Ozempic) nitroglycerin 0.4 mg sublingual 0.4 mg sublingual Q5-15M PRN 12/13/24 03/12/25 History tablet alprazolam 0.5 mg tablet (Xanax) 0.5 mg PO .COMPLEX PRN Pre MRI or 01/08/25 03/12/25 Rx Procedure #5 tabs pramipexole 0.5 mg tablet 0.5 mg PO BEDTIME #90 tabs 02/08/25 03/12/25 Rx acetaminophen 325 mg tablet 650 mg PO Q6H PRN Pain or fever. 03/01/25 03/12/25 History (Tylenol) duloxetine 30 mg capsule,delayed 30 mg PO DAILY 03/01/25 03/12/25 History release hydroxyzine pamoate 25 mg capsule 25 mg PO TID-QID PRN spasms #60 03/08/25 03/12/25 Rx (Vistaril) caps oxycodone-acetaminophen 5 mg-325 2 tab PO Q4-6H PRN pain #60 tabs 03/08/25 03/12/25 Rx mg tablet (Percocet) fenofibrate nanocrystallized 145 145 mg PO DAILY #90 tabs 03/12/25 03/12/25 Rx mg tablet (Tricor) metformin 500 mg tablet 500 mg PO DAILY #30 tabs 03/12/25 Rx tirzepatide 2.5 mg/0.5 mL 2.5 mg (0.5 mL) SUBCUT QWEEK #2 mL 03/12/25 03/12/25 Rx subcutaneous pen injector celecoxib 200 mg capsule 200 mg PO DAILY 03/15/25 03/15/25 History flecainide 50 mg tablet 50 mg PO BID 03/15/25 03/15/25 History trazodone 100 mg tablet 100 mg PO QPM 03/15/25 03/15/25 History Allergies Allergy/AdvReac Type Severity Reaction Status Date / Time cefotetan [CEFOTETAN] Allergy Intermediate ITCHING Verified 03/15/25 06:32 Exam Vital Signs (past 8 hours): - 03/15/25 07:01 Temperature 97.2 F L Pulse Rate 69 Respiratory Rate 16 Blood Pressure 144/79 H Pulse Oximetry 98 Oxygen Delivery Method Room Air Oxygen Delivery Method Room Air Const General: No acute distress Assessment & Plan Assessment and plan (1) Dysphagia: Qualifiers: Dysphagia type: unspecified Qualified Code(s): R13.10 - Dysphagia, unspecified Status: Acute Plan EGD for dysphagia Time-Based Coding :: [TOTAL MINUTES] spent with patient and on the chart (including review of chart, obtaining history, exam, reviewing outside data, placing orders, documenting exam and treatment plan, and counseling patient) on [DATE]. [employer] Document charge(s): No
--- NOTE | 2025-03-15 08:09 | P.OP.EGD_ITS ---
Operative Date/Time/Diagnoses Date of procedure: 03/15/25 Time of procedure: 08:10 Pre-op diagnosis: Dysphagia Post-op diagnosis: same Procedure & Clinicians Study performed: Esophagogastroduodenoscopy Same procedure as scheduled: Yes Surgeon: Syed Nettles Procedure Notes Procedure in detail: Surgeon: Syed Nettles MD Anesthesia: Marina Chauhan CRNA A timeout was performed. A bite blocked was placed. The patient was positioned in the left lateral decubitus position. Anesthesia was administered. The endoscope was inserted through the bite block and passed through the esophagus and stomach and into the duodenum. The duodenal mucosa appeared normal. The scope was withdrawn into the duodenal bulb and abnormalities were seen. The scope was withdrawn into the stomach. There was mild antritis and random biopsies were taken from the antrum with cold forceps. The scope was retrof lexed and no hiatal hernia was noted. There were multiple polyps in the proximal stomach 1 of which was greater than 1 cm. The large polyp was resected with a hot snare and removed with a Frias net in two pieces. The scope was withdrawn into the esophagus and no other abnormalities were seen esophagus. There was no stricture. The scope was withdrawn. The patient was awakened and brought to recovery. Sedation time: 14 minutes Findings: Mild antritis and large polyp in the proximal stomach Post-procedure Disposition: PACU
[2025-03-15 08:15] VITALS: BP 135/74; PULSE 71; RESP 16; TEMP 36.2; O2SAT 98
[2025-03-15 08:20] VITALS: BP 136/82; PULSE 71; RESP 16; TEMP 36.2; O2SAT 98
[2025-03-15 08:32] VITALS: BP 139/86; PULSE 75; RESP 16; TEMP 36.2; O2SAT 98
== END 2025-03-15 08:37 | disposition home or self-care (01) ==
PROVIDERS: PCP Student in an Organized Health Care Education/Training Program; Referring Provider Surgery; Visit Provider Surgery
PROC: 0DJ08ZZ Inspection of Upper Intestinal Tract, Via Natural or Artificial Opening Endoscopic (ICD-10-PCS; CPT 43251; principal; 2025-03-15 07:45)
DX: R13.10 Dysphagia, unspecified (principal); K29.50 Unspecified chronic gastritis without bleeding; K31.7 Polyp of stomach and duodenum
CPT/HCPCS: 43251; J2704; J3010